=== PATIENT | female | born 1955 | race Caucasian/White ===

== ENCOUNTER 2017-04-11 22:59 | Emergency (ER) | payer BC ==
[~2017-04-11] VITALS: Ht 154.9 cm; Wt 47.7 kg
[2017-04-11 23:06] VITALS: BP 130/65; PULSE 83; TEMP 36.5; O2SAT 98; Ht 154.9 cm; Wt 47.7 kg
[2017-04-11] MEDS ORDERED: DOXYCYCLINE HYCLATE 100 MG CAP PO STA (23:18)
--- NOTE | 2017-04-11 23:23 | EMERGENCY ROOM VISIT NOTE ---
History Report prepared by Srikanth: Jose Alejandro Maciel Under the Supervision of: Dr. Aaron Adam D.O. First contact with patient: 23:13 Chief Complaint: BITE Stated Complaint: TICK BITE ON BACK OF LEG History of Present Illness The patient is a 61 year old female who presents to the Emergency Room with complaints of an acute tick bite that was noticed earlier tonight. The patient found a tick on her left lower leg, which she pulled off at home. She is not sure how long the tick was there. The patient has not experienced any fevers or muscles aches. She is allergic to sulfa drugs which give her a rash. Source of History: patient Onset: tonight Position: leg (left) Quality: other (tick bite) Timing: other (acute) Associated Symptoms: No fevers Review of Systems See HPI for pertinent positives and negatives. A total of ten systems were reviewed and were otherwise negative. Past Medical & Surgical Medical Problems: (1) Allergy to sulfa drugs Family History No pertinent family history Social History Smoking Status: Never Smoker Marital Status: Housing Status: lives with family Physical Exam Vital Signs Date Time Temp Pulse Resp B/P Pulse Ox O2 Delivery O2 Flow Rate FiO2 04/11/17 23:06 36.5 83 18 130/65 98 Room Air Physical Exam GENERAL: Awake, alert, well-appearing, in no distress HENT: Normocephalic, atraumatic. Oropharynx unremarkable. EYES: Normal conjunctiva. Sclera non-icteric. NECK: Supple. No nuchal rigidity. FROM. No JVD. RESPIRATORY: Clear to auscultation. CARDIAC: Regular rate, normal rhythm. Extremities warm and well perfused. Pulses equal. ABDOMEN: Soft, non-distended. No tenderness to palpation. No rebound or guarding. No masses. RECTAL: Deferred. MUSCULOSKELETAL: Chest examination reveals no tenderness. The back is symmetrical on inspection without obvious abnormality. There is no CVA tenderness to palpation. No joint edema. LOWER EXTREMITIES: Calves are equal size bilaterally and non-tender. No edema. No discoloration. NEURO: Normal sensorium. No sensory or motor deficits noted. SKIN: Dime-sized circular red lesion on the proximal anterior left dennis. Medical Decision & Procedures Laboratory Results Test 04/11/17 23:19 Laboratory results reviewed by nd ED Course 2315: The patient was evaluated in room C7. A complete history and physical exam was performed. 2318: Vibramycin 200 mg PO. 2345: Discussed results and discharge instructions: She verbalized understanding and agreement. The patient is ready for discharge. Medical Decision Differential diagnosis includes localized reaction, early cellulitis, ECM, possible Lyme. We will start the patient on doxycycline in the emergency department. Will test for Lyme. Told the patient to continue doxycycline until Lyme titer is negative. Impression Primary Impression: Tick bite Scribe Attestation The scribe's documentation has been prepared under my direction and personally reviewed by me in its entirety. I confirm that the note above accurately reflects all work, treatment, procedures, and medical decision making performed by me. Departure Information Dispostion Home / Self-Care Prescriptions Doxycycline Hyclate (VIBRAMYCIN) 100 Mg Cap 100 MG PO BID for 10 Days, #20 CAP Prov: Aaron Adam, DO 04/11/17 Referrals Eagle Howard M.D.(SHRAVAN) (PCP) Forms HOME CARE DOCUMENTATION FORM, IMPORTANT VISIT INFORMATION Patient Instructions ED Bite Tick Abx Tx, My [facility] Additional Instructions Continue to take doxycycline until you know that the Lyme titer is negative. Problem Qualifiers Primary Impression: Tick bite Encounter type: initial encounter Qualified Codes: W57.XXXA - Bitten or stung by nonvenomous insect and other nonvenomous arthropods, initial encounter
[2017-04-11] MEDS ORDERED: DOXY100C PO (23:24)
== END 2017-04-11 23:55 | disposition home or self-care (01) ==
LOC: C.EDB 23:01 → C.EDC 23:55
DX: S80.862A Insect bite (nonvenomous), left lower leg, initial encounter (principal); W57.XXXA Bitten or stung by nonvenomous insect and other nonvenomous arthropods, initial encounter; Y92.89 Other specified places as the place of occurrence of the external cause

== ENCOUNTER 2021-02-28 13:45 | Observation (INO) ==
[2021-02-28] MEDS ORDERED: SODIUM CHLORIDE 0.9% 500 ML IV STA (17:22)
--- NOTE | 2021-02-28 17:28 | Emergency Department Note ---
Impression & Plan Abdominal pain, lower, Abdominal carcinomatosis ED Provider Note INFORMANT: Patient ED PROVIDER(S): Isrrael Yepez MD CHIEF COMPLAINT: Abdominal pain PLAN: Disposition: Admitted Condition: Good Outpatient prescription management: none Referral: None MEDICAL DECISION MAKING: Patient presented to emergency room complaining of abdominal pain. Blood work was obtained. She had an unremarkable CBC, chemistry panel, LFTs, and troponin. Her lipase was minimally elevated. Urinalysis was negative. ECG was normal. The patient underwent CT imaging of her abdomen pelvis and this was concerning with multiple nodules noted. Concerning for abdominal carcinomatosis. I did inform the patient and her significant other of this. I discussed possible follow-up as an outpatient. She wanted to follow-up with oncology but not at [facility]. I did consult with Dr. Negrete and he asked for the patient to be admitted, have a full contrast-enhanced CT scan of the chest abdomen and pelvis, be set up for surgical consultation for biopsy and he would see the patient tomorrow. He felt inpatient work-up with expedite the process and help the patient much more quickly as his office is significantly backed up. I did discuss the case with the patient and she is in agreement. Consultation was made with Dr. Castro Red, [facility] hospitalist service. The patient was evaluated in the ER for further management. Triage Nursing notes reviewed and agree them. Prior records reviewed. Outpatient labs are unremarkable. Vital Signs: reviewed and remarkable for tachycardia Differential diagnosis: Appendicitis, ovarian cyst, ovarian torsion, ectopic , TOA, PID, infections, diverticulitis, UTI, obstruction, mesenteric ischemia, aortic pathology, inflammatory bowel disease, renal colic, PUD, pancreatitis, biliary pathology, hernia, volvulus, constipation, cancer, well as other pathologies. Diagnostics interpreted by me: ECG: Rate:96 Rhythm:Normal sinus [place]:Normal QRS:Normal ST segements:No elevation or depression Other:No PACs or PVCs Cardiac Monitoring:Cardiac monitoring ordered by me: The patient was placed on continuous cardiac monitoring and observed. It revealed a normal sinus rhythm at 94 beats per minute without ectopy or evidence of dysrhythmia. Imaging studies: CT scan as noted above. I refer you to the EMR for further details. Consultation(s): Oncology Hospitalist service HPI: The patient is a 65 year old female who presents to the Emergency Room with complaints of lower abd pain. This started a few months ago and is escalating. The patient also notes the following associated symptoms, nausea, weakness and dizziness. The patient has noted exercise for relieving factors. Current pain is rated as 8/10. Pt denies LOC, headache, fevers, chills, diaphoresis, visual changes, neck pain, chest pain, breathing difficulties, vomiting, back pain, melena, hematochezia, urinary symptoms, numbness, lymphadenopathy, rash, or other complaints. ROS: See above HPI for pertinent positives & negatives. A total of 10 systems reviewed and were otherwise negative. PAST MEDICAL HISTORY:See Below , DM PAST SURGICAL HISTORY:See Below, FAMILY HISTORY:See Below SOCIAL HISTORY:See Below, no tobacco, occasional etoh HOME MEDICATIONS:See Below ALLERGIES:See Below VITALS:See Below PHYSICAL EXAMINATION: GENERAL: Awake, alert, well-appearing, in no distress HENT: Normocephalic, atraumatic. Oropharynx unremarkable. EYES: Normal conjunctiva. Sclera non-icteric. NECK: Inspection normal. Non-tender. Supple. No nuchal rigidity. FROM. No masses. RESPIRATORY: Clear to auscultation. No wheezes. No rales. Normal respiratory effort. CARDIAC: Normal rate. Normal rhythm. No murmurs. No rubs. Extremities warm and well perfused. Pulses equal. No JVD. GI: Soft, non-distended. Lower abd tenderness to palpation. No rebound or guarding. No masses. RECTAL: Deferred. MUSCULOSKELETAL: Atraumatic. Chest examination reveals no tenderness. The back is symmetrical on inspection without obvious abnormality. There is no CVA tenderness to palpation. No joint edema. LOWER EXTREMITIES: Calves are equal size bilaterally and non-tender. No edema. No discoloration. NEURO: Normal sensorium. No sensory or motor deficits noted. SKIN: No rash or jaundice noted. Isrrael Yepez MD Past Med/Surg History Social History Smoking Status: Never smoker Feels Safe at Home: Yes Allergies Allergies Allergy/AdvReac Type Severity Reaction Status Date / Time Sulfa (Sulfonamide Allergy Mild Rash Verified 02/28/21 20:33 Antibiotics) acetaminophen [From Vicodin] AdvReac Mild Vomiting Verified 02/28/21 20:34 hydrocodone [From Vicodin] AdvReac Mild Vomiting Verified 02/28/21 20:34 Results & Data (ED) Vital Signs Vital Signs - 24 hr 02/28/21 13:48 02/28/21 17:24 02/28/21 17:28 Temperature 36.5 C Temperature Source Oral Pulse Rate 126 H 96 H 98 H Pulse Rate from SpO2 Sensor 95 H 99 H Respiratory Rate 20 16 17 Blood Pressure 171/80 H 168/91 H Blood Pressure Mean 110 116 Pulse Oximetry 96 98 98 Sepsis Recent Fever Within 48 Hours No Sepsis New/Unexplained Change in Mental Status N/A Sepsis Action Taken by Nursing No Action Required 02/28/21 17:30 02/28/21 17:40 02/28/21 17:55 Temperature Temperature Source Pulse Rate 106 H 98 H 98 H Pulse Rate from SpO2 Sensor 108 H 101 H 98 H Respiratory Rate 23 25 H 22 Blood Pressure Blood Pressure Mean Pulse Oximetry 97 97 99 Sepsis Recent Fever Within 48 Hours Sepsis New/Unexplained Change in Mental Status Sepsis Action Taken by Nursing 02/28/21 18:00 02/28/21 18:10 02/28/21 18:20 Temperature Temperature Source Pulse Rate 95 H 94 H 89 Pulse Rate from SpO2 Sensor 95 H 94 H 92 H Respiratory Rate 14 17 13 Blood Pressure Blood Pressure Mean Pulse Oximetry 98 98 97 Sepsis Recent Fever Within 48 Hours Sepsis New/Unexplained Change in Mental Status Sepsis Action Taken by Nursing 02/28/21 18:30 02/28/21 18:40 02/28/21 18:52 Temperature Temperature Source Pulse Rate 92 H 94 H 98 H Pulse Rate from SpO2 Sensor 92 H 93 H 98 H Respiratory Rate 14 17 13 Blood Pressure Blood Pressure Mean Pulse Oximetry 96 97 97 Sepsis Recent Fever Within 48 Hours Sepsis New/Unexplained Change in Mental Status Sepsis Action Taken by Nursing 02/28/21 18:53 02/28/21 19:00 02/28/21 19:01 Temperature Temperature Source Pulse Rate 96 H 90 89 Pulse Rate from SpO2 Sensor 96 H 89 89 Respiratory Rate 16 19 17 Blood Pressure 170/88 H 158/87 H Blood Pressure Mean 115 110 Pulse Oximetry 98 98 98 Sepsis Recent Fever Within 48 Hours Sepsis New/Unexplained Change in Mental Status Sepsis Action Taken by Nursing 02/28/21 19:10 02/28/21 19:20 02/28/21 19:24 Temperature Temperature Source Pulse Rate 88 93 H 89 Pulse Rate from SpO2 Sensor 88 93 H 90 Respiratory Rate 13 17 16 Blood Pressure 158/87 H Blood Pressure Mean 110 Pulse Oximetry 97 96 97 Sepsis Recent Fever Within 48 Hours Sepsis New/Unexplained Change in Mental Status Sepsis Action Taken by Nursing 02/28/21 19:30 02/28/21 19:31 02/28/21 19:40 Temperature Temperature Source Pulse Rate 95 H 94 H 93 H Pulse Rate from SpO2 Sensor 95 H 95 H 93 H Respiratory Rate 19 13 17 Blood Pressure 171/93 H Blood Pressure Mean 119 Pulse Oximetry 98 98 97 Sepsis Recent Fever Within 48 Hours Sepsis New/Unexplained Change in Mental Status Sepsis Action Taken by Nursing 02/28/21 19:50 Temperature Temperature Source Pulse Rate 90 Pulse Rate from SpO2 Sensor 90 Respiratory Rate 20 Blood Pressure Blood Pressure Mean Pulse Oximetry 96 Sepsis Recent Fever Within 48 Hours Sepsis New/Unexplained Change in Mental Status Sepsis Action Taken by Nursing Laboratory Data Result diagrams: 02/28/21 17:33 02/28/21 17:33 Lab Results 02/28/21 02/28/21 02/28/21 Range/Units 17:33 17:33 18:50 WBC 10.31 (4.8-10.8) K/uL RBC 4.56 (4.2-5.4) M/uL Hgb 13.7 (12.0-16.0) g/dL Hct 39.8 (37-47) % MCV 87.3 (80-100) fL MCH 30.0 (25-34) pg MCHC 34.4 (32-36) g/dL RDW Std Deviation 42.6 (36.4-46.3) fL RDW Coeff of Huy 13.3 (11.5-14.5) % Plt Count 416 H (130-400) K/uL MPV 9.6 (7.4-10.4) fL Immature Gran % (Auto) 0.3 % Neut % (Auto) 64.6 % Lymph % (Auto) 23.6 % [place] % (Auto) 10.0 % Eos % (Auto) 1.0 % Baso % (Auto) 0.5 % Neut # (Auto) 6.67 H (1.4-6.5) K/uL Lymph # (Auto) 2.43 (1.2-3.4) K/uL [place] # (Auto) 1.03 H (0.11-0.59) K/uL Eos # (Auto) 0.10 (0-0.5) K/uL Baso # (Auto) 0.05 (0-0.2) K/uL Immature Gran # (Auto) 0.03 H (0.00-0.02) K/uL Sodium 135 L (136-145) mmol/L Potassium 4.1 (3.5-5.1) mmol/L Chloride 102 (98-107) mmol/L Carbon Dioxide 22 (21-32) mmol/L Anion Gap 11.0 (3-11) BUN 16 (7-18) mg/dl Creatinine 0.85 (0.6-1.2) mg/dl Est Cr Clr Drug Dosing 49.1 ml/min Est GFR ( Amer) 82.8 Est GFR (Non-Af Amer) 71.4 BUN/Creatinine Ratio 18.8 (10-20) Glucose 97 (70-99) mg/dl Calcium 9.8 (8.5-10.1) mg/dl Total Bilirubin 0.3 (0.2-1) mg/dl AST 24 (15-37) U/L ALT 13 (12-78) U/L Alkaline Phosphatase 67 (45-117) U/L Troponin I < 0.015 (0-0.045) ng/ml Total Protein 7.7 (6.4-8.2) gm/dl Albumin 3.7 (3.4-5.0) gm/dl Globulin 4.0 (2.5-4.0) gm/dl Albumin/Globulin Ratio 0.9 (0.9-2) Lipase 458 H (73-393) U/L Urine Color Yellow Urine Appearance Clear (Clear) Urine pH 5.0 (4.5-7.5) Ur Specific [place] 1.014 (1.000-1.030) Urine Protein Negative (Negative) Urine Glucose (UA) Negative (Negative) Urine Ketones 3+ H (Negative) Urine Blood Negative (Negative) Urine Nitrite Negative (Negative) Urine Bilirubin Negative (Negative) Urine Urobilinogen Negative (Negative) Ur Leukocyte Esterase 1+ H (Negative) Urine WBC (Auto) 5-10 H (0-5) /hpf Urine RBC (Auto) 0-4 (0-4) /hpf U Hyaline Cast (Auto) 0 (0-5) /lpf U Epithel Cells (Auto) 10-20 H (0-5) /lpf Urine Bacteria (Auto) Negative (Negative) COVID-19 Eval Order 02/28/21 Range/Units 19:51 WBC (4.8-10.8) K/uL RBC (4.2-5.4) M/uL Hgb (12.0-16.0) g/dL Hct (37-47) % MCV (80-100) fL MCH (25-34) pg MCHC (32-36) g/dL RDW Std Deviation (36.4-46.3) fL RDW Coeff of Huy (11.5-14.5) % Plt Count (130-400) K/uL MPV (7.4-10.4) fL Immature Gran % (Auto) % Neut % (Auto) % Lymph % (Auto) % [place] % (Auto) % Eos % (Auto) % Baso % (Auto) % Neut # (Auto) (1.4-6.5) K/uL Lymph # (Auto) (1.2-3.4) K/uL [place] # (Auto) (0.11-0.59) K/uL Eos # (Auto) (0-0.5) K/uL Baso # (Auto) (0-0.2) K/uL Immature Gran # (Auto) (0.00-0.02) K/uL Sodium (136-145) mmol/L Potassium (3.5-5.1) mmol/L Chloride (98-107) mmol/L Carbon Dioxide (21-32) mmol/L Anion Gap (3-11) BUN (7-18) mg/dl Creatinine (0.6-1.2) mg/dl Est Cr Clr Drug Dosing ml/min Est GFR ( Amer) Est GFR (Non-Af Amer) BUN/Creatinine Ratio (10-20) Glucose (70-99) mg/dl Calcium (8.5-10.1) mg/dl Total Bilirubin (0.2-1) mg/dl AST (15-37) U/L ALT (12-78) U/L Alkaline Phosphatase (45-117) U/L Troponin I (0-0.045) ng/ml Total Protein (6.4-8.2) gm/dl Albumin (3.4-5.0) gm/dl Globulin (2.5-4.0) gm/dl Albumin/Globulin Ratio (0.9-2) Lipase (73-393) U/L Urine Color Urine Appearance (Clear) Urine pH (4.5-7.5) Ur Specific [place] (1.000-1.030) Urine Protein (Negative) Urine Glucose (UA) (Negative) Urine Ketones (Negative) Urine Blood (Negative) Urine Nitrite (Negative) Urine Bilirubin (Negative) Urine Urobilinogen (Negative) Ur Leukocyte Esterase (Negative) Urine WBC (Auto) (0-5) /hpf Urine RBC (Auto) (0-4) /hpf U Hyaline Cast (Auto) (0-5) /lpf U Epithel Cells (Auto) (0-5) /lpf Urine Bacteria (Auto) (Negative) COVID-19 Eval Order CovFluRsv at [facility] Administered Medications Discontinued Medications Sodium Chloride (Nss) 500 mls @ 999 mls/hr IV .Q31M STA Stop: 02/28/21 17:52 Last Infusion: 02/28/21 18:11 Dose: 0 mls/hr Documented by: [id number] Admin: 02/28/21 17:44 Dose: 999 mls/hr Documented by: [id number] Imaging Data Radiologist's Impression: Abdomen/Pelvis CT 02/28/21 17:22 CT SCAN OF THE ABDOMEN AND PELVIS WITHOUT CONTRAST CLINICAL HISTORY: generalized abd pain COMPARISON STUDY: No previous studies for comparison. TECHNIQUE: CT scan of the abdomen and pelvis was performed from the lung bases to the proximal femurs. Images are reviewed in the axial, sagittal, and coronal planes. IV contrast was not administered for this examination. A dose lowering technique was utilized adhering to the principles of ALARA. CT DOSE: 296.23 mGy.cm FINDINGS: Lower chest: There is minor basilar atelectasis Liver: The unenhanced liver is normal in size, contour, and attenuation. There is no intrahepatic biliary ductal dilatation. Gallbladder: Unremarkable. Spleen: Normal in size and attenuation. Pancreas: Unremarkable. Adrenal glands: Unremarkable. Kidneys: No renal, ureteral, or bladder calculi are visualized. Bowel: There are no transition zones to indicate bowel obstruction. Bowel evaluation is limited due to the lack of intravenous and oral contrast. There is no evidence of acute diverticulitis. There is no convincing evidence of acute appendicitis. Peritoneum: There are innumerable soft tissue peritoneal nodules viewed as suspicious for abdominal carcinomatosis. Vasculature: The abdominal aorta is normal in course and caliber. Adenopathy: There is a 22 mm gastrohepatic ligament lymph node. There are mildly enlarged mesenteric lymph nodes. Pelvic viscera: Evaluation the pelvis is limited due to the lack of intravenous and oral contrast. There are suspected pelvic soft tissue nodules. Skeletal structures: No destructive osseous lesions are seen. IMPRESSION: 1. Examination limited by the lack of intravenous and oral contrast 2. No evidence of bowel obstruction. No evidence of free air 3. No renal, ureteral, or bladder calculi identified 4. Innumerable peritoneal nodules. Abdominal carcinomatosis is the diagnosis of exclusion. Oncologic referral and further workup recommended. ACT 112: Positive. There are findings on this exam that require communication between the performing entity and the patient following Patient Test Result Information Act ([place] Act 112) guidelines. Electronically signed by: Grey Malave M.D. 02/28/2021 6:00 PM Discharge Plan Visit Data Chief Complaint: Abdominal Pain Stated Complaint: ABD PAIN ED Provider: Isrrael Yepez Discharge Problem: Abdominal pain, lower, Abdominal carcinomatosis Forms Stand Alone Forms: [facility]
[2021-02-28 17:40] LABS: Basophils # (auto) 0.05 K/uL (0-0.2); Basophils % (auto) 0.5 %; Hematocrit (blood only) 39.8 % (37-47); Hemoglobin 13.7 g/dL (12.0-16.0); Immature Granulocytes # (auto) 0.03 K/uL (0.00-0.02); Immature Granulocytes % (auto) 0.3 %; Lymphocytes # (auto) 2.43 K/uL (1.2-3.4); Lymphocytes % (auto) 23.6 %; Mean Corpuscular Hgb Conc 34.4 g/dL (32-36); Mean Corpuscular Volume 87.3 fL (80-100); Mean Platelet Volume 9.6 fL (7.4-10.4); Monocytes # (auto) 1.03 K/uL (0.11-0.59); Neutrophils # (auto) 6.67 K/uL (1.4-6.5); Neutrophils % (auto) 64.6 %; Platelet Count 416 K/uL (130-400); RDW Coefficient of Variation 13.3 % (11.5-14.5); RDW Standard Deviation 42.6 fL (36.4-46.3); Red Blood Count 4.56 M/uL (4.2-5.4); White Blood Count 10.31 K/uL (4.8-10.8)
[2021-02-28 17:56] LABS: Alanine Aminotransferase 13 U/L (12-78); Albumin Level 3.7 gm/dl (3.4-5.0); Aspartate Aminotransferase 24 U/L (15-37); BUN Creatinine Ratio 18.8 (10-20); Blood Urea Nitrogen 16 mg/dl (7-18); Calcium 9.8 mg/dl (8.5-10.1); Carbon Dioxide 22 mmol/L (21-32); Chloride 102 mmol/L (98-107); Creatinine Clr Calc Pharmacy 49.1 ml/min; Est GFR (African American) 82.8; Est GFR (Non-African American) 71.4; Glucose 97 mg/dl (70-99); Lipase 458 U/L (73-393); Potassium 4.1 mmol/L (3.5-5.1); Sodium 135 mmol/L (136-145)
[2021-02-28 18:00] LABS: Albumin Globulin Ratio 0.9 (0.9-2); Alkaline Phosphatase 67 U/L (45-117); Bilirubin,Total 0.3 mg/dl (0.2-1); Total Protein 7.7 gm/dl (6.4-8.2); Troponin I < 0.015 ng/ml (0-0.045)
--- NOTE | 2021-02-28 18:01 | CT Scan Report ---
CT SCAN OF THE ABDOMEN AND PELVIS WITHOUT CONTRAST CLINICAL HISTORY: generalized abd pain COMPARISON STUDY: No previous studies for comparison. TECHNIQUE: CT scan of the abdomen and pelvis was performed from the lung bases to the proximal femurs . Images are reviewed in the axial, sagittal, and coronal planes. IV contrast was not administered fo r this examination. A dose lowering technique was utilized adhering to the principles of ALARA. CT DOSE: 296.23 mGy.cm FINDINGS: Lower chest: There is minor basilar atelectasis Liver: The unenhanced liver is normal in size, contour, and attenuation. There is no intrahepatic ronni iary ductal dilatation. Gallbladder: Unremarkable. Spleen: Normal in size and attenuation. Pancreas: Unremarkable. Adrenal glands: Unremarkable. Kidneys: No renal, ureteral, or bladder calculi are visualized. Bowel: There are no transition zones to indicate bowel obstruction. Bowel evaluation is limited due t o the lack of intravenous and oral contrast. There is no evidence of acute diverticulitis. There is n o convincing evidence of acute appendicitis. Peritoneum: There are innumerable soft tissue peritoneal nodules viewed as suspicious for abdominal c arcinomatosis. Vasculature: The abdominal aorta is normal in course and caliber. Adenopathy: There is a 22 mm gastrohepatic ligament lymph node. There are mildly enlarged mesenteric lymph nodes. Pelvic viscera: Evaluation the pelvis is limited due to the lack of intravenous and oral contrast. Th ere are suspected pelvic soft tissue nodules. Skeletal structures: No destructive osseous lesions are seen. IMPRESSION: 1. Examination limited by the lack of intravenous and oral contrast 2. No evidence of bowel obstruction. No evidence of free air 3. No renal, ureteral, or bladder calculi identified 4. Innumerable peritoneal nodules. Abdominal carcinomatosis is the diagnosis of exclusion. Oncologic referral and further workup recommended. ACT 112: Positive. There are findings on this exam that require communication between the performing entity and the patient following Patient Test Result Information Act ([place] Act 112) guidelines. Electronically signed by: Grey Malave M.D. 02/28/2021 6:00 PM
[2021-02-28 19:07] LABS: Appearance Urine Clear (Clear); Bacteria Urine Automated Negative (Negative); Bilirubin Urine Negative (Negative); Blood Urine Negative (Negative); Cast Urine Automated 0 /lpf (0-5); Color Urine Yellow; Glucose Urine UA Negative (Negative); Ketones Urine 3+ (Negative); Leukocyte Esterase Urine 1+ (Negative); Nitrite Urine Negative (Negative); Protein Urine Negative (Negative); RBC Urine Automated 0-4 /hpf (0-4); Specific Gravity Urine 1.014 (1.000-1.030); Urobilinogen Urine Negative (Negative)
[2021-02-28 21:01] LABS: Influenza A virus by PCR Negative (Neg); Influenza B virus by PCR Negative (Neg); RSV by PCR Negative (Neg); SARS CoV2 RNA(COVID-19) InHosp NEGATIVE (Negative)
--- NOTE | 2021-02-28 22:09 | History & Physical Report ---
Date of Service February 28, 2021 Assessment & Plan (1) Abdominal pain, lower: Abdominal pain complaints of 6 months duration. Possible carcinomatosis on initial CT Unknown primary for now. hypertension, elevated secondary to discomfort/anxiety, currently not on any maintenance medications DM2 diet-controlled, hemoglobin A1c of 5.28 February 2021 LE cramps rule out DVT OBS Medical telemetry given elevated BP Initiate lisinopril if with persistent elevation Inpatient Oncology consultation as per patient preference for work-up for abdominal carcinomatosis on CT. Patient worried about delays posed by outpatient specialty referrals and scheduling of recommended tests. (ER provider already in touch with Dr. Morel.) N.p.o. after midnight in anticipation of any testing procedure. LE venous Dopplers rule out DVT DVT prophylaxis per Lovenox subcu Full code Text document was generated using Prysm voice recognition software. It may contain grammatical or spelling errors. Kindly contact undersigned for clarification of any documentation item in question. History of Present Illness Chief Complaint: Abdominal pain Primary Care Provider: [facility] History obtained from patient, family, and records. Medical history significant for hypertension, hyperlipidemia, DM2 diet- controlled. 6 months history of intermittent achy lower abdominal discomfort without bowel change habits, fever chills, weight loss. No nausea, no vomiting. Appetite okay as per patient. Patient denies dysuria. Patient seen at PCP's office around that time. Metamucil prescribed. Outpatient Cologuard test requested which patient complied with but could not get processed as per records. Patient seen at PCP's office yesterday for persistent abdominal pain complaints. Benign abdominal exam as per documentation. Outpatient KUB and blood work requested. Patient consulted ER for persistent discomfort. Medical History as above 2020 mammogram was normal. No prior colonoscopies. 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 Allergies Allergy/AdvReac Type Severity Reaction Status Date / Time Sulfa (Sulfonamide Allergy Mild Rash Verified 02/28/21 20:33 Antibiotics) hydrocodone [From Vicodin] AdvReac Mild Vomiting Verified 02/28/21 20:34 Home Medications Medication Instructions Recorded Confirmed Type Curcumin Tab 0 mg PO DAILY 02/28/21 02/28/21 History Salt Tabs 2 tabs PO HS 02/28/21 02/28/21 History cholecalciferol (vitamin D3) 0 mcg PO DAILY 02/28/21 02/28/21 History [Vitamin D3] latanoprost [Xalatan] 1 drp OPHTHALMIC (EYE) DAILY 02/28/21 02/28/21 History Past Med/Surg History Social History Smoking Status: Never smoker Second Hand Exposure: No; Do You Dip or Chew Tobacco: No; Tobacco Cessation Education Requested by Patient: No Hx Alcohol Use: No Hx Substance Use: No Preferred Language: Icelandic Learning Manager Required: No Beliefs That Will Affect Care: None Current Living Situation: Spouse Other Information That Helps Us Care for You: No Feels Safe at Home: Yes Safety Concerns: Feels Safe At This Time Assistive Devices: None Review of Systems Review of Systems: As per HPI, all 10 systems reviewed, chronic leg cramps for which patient self-medicates with salt tablets purchased from [employer], all other ROS negative Physical Exam Physical Exam: GENERAL: Comfortable, slightly anxious, no respiratory distress SKIN: Normal color, warm HEENT: Jessie palpebral conjunctivae, no ptosis, dry buccal mucosa NECK : Supple, no tenderness CHEST : CTA, no tenderness HEART : RRR, no obvious murmurs ABDOMEN: Some distention, minimal hypogastric tenderness EXTREMITIES : Minimal LE swelling, minimal LE tenderness, no other conspicuous deformities noted NEUROLOGIC : Coherent, no facial asymmetry, no other gross focality Results & Data Results & Data ([facility]) Vital Signs (Past 12 Hours) Vital Signs Temp Pulse Resp BP Pulse Ox 02/28/21 19:50 90 20 96 02/28/21 19:40 93 H 17 97 02/28/21 19:31 94 H 13 98 02/28/21 19:30 95 H 19 171/93 H 98 02/28/21 19:24 89 16 158/87 H 97 02/28/21 19:20 93 H 17 96 02/28/21 19:10 88 13 97 02/28/21 19:01 89 17 98 02/28/21 19:00 90 19 158/87 H 98 02/28/21 18:53 96 H 16 170/88 H 98 02/28/21 18:52 98 H 13 97 02/28/21 18:40 94 H 17 97 02/28/21 18:30 92 H 14 96 02/28/21 18:20 89 13 97 02/28/21 18:10 94 H 17 98 02/28/21 18:00 95 H 14 98 02/28/21 17:55 98 H 22 99 02/28/21 17:40 98 H 25 H 97 02/28/21 17:30 106 H 23 97 02/28/21 17:28 98 H 17 98 02/28/21 17:24 96 H 16 168/91 H 98 02/28/21 13:48 36.5 C 126 H 20 171/80 H 96 Laboratory Results Laboratory Results WBC 10.31 K/uL (4.8-10.8) 02/28/21 17:33 RBC 4.56 M/uL (4.2-5.4) 02/28/21 17:33 Hgb 13.7 g/dL (12.0-16.0) 02/28/21 17:33 Hct 39.8 % (37-47) 02/28/21 17:33 MCV 87.3 fL (80-100) 02/28/21 17:33 MCH 30.0 pg (25-34) 02/28/21 17:33 MCHC 34.4 g/dL (32-36) 02/28/21 17:33 RDW Std Deviation 42.6 fL (36.4-46.3) 02/28/21 17:33 RDW Coeff of Uhy 13.3 % (11.5-14.5) 02/28/21 17:33 Plt Count 416 K/uL (130-400) H 02/28/21 17:33 MPV 9.6 fL (7.4-10.4) 02/28/21 17:33 Immature Gran % (Auto) 0.3 % 02/28/21 17:33 Neut % (Auto) 64.6 % 02/28/21 17:33 Lymph % (Auto) 23.6 % 02/28/21 17:33 [place] % (Auto) 10.0 % 02/28/21 17:33 Eos % (Auto) 1.0 % 02/28/21 17:33 Baso % (Auto) 0.5 % 02/28/21 17:33 Neut # (Auto) 6.67 K/uL (1.4-6.5) H 02/28/21 17:33 Lymph # (Auto) 2.43 K/uL (1.2-3.4) 02/28/21 17:33 [place] # (Auto) 1.03 K/uL (0.11-0.59) H 02/28/21 17:33 Eos # (Auto) 0.10 K/uL (0-0.5) 02/28/21 17:33 Baso # (Auto) 0.05 K/uL (0-0.2) 02/28/21 17:33 Immature Gran # (Auto) 0.03 K/uL (0.00-0.02) H 02/28/21 17:33 Sodium 135 mmol/L (136-145) L 02/28/21 17:33 Potassium 4.1 mmol/L (3.5-5.1) 02/28/21 17:33 Chloride 102 mmol/L (98-107) 02/28/21 17:33 Carbon Dioxide 22 mmol/L (21-32) 02/28/21 17:33 Anion Gap 11.0 (3-11) 02/28/21 17:33 BUN 16 mg/dl (7-18) 02/28/21 17:33 Creatinine 0.85 mg/dl (0.6-1.2) 02/28/21 17:33 Est Cr Clr Drug Dosing 49.1 ml/min 02/28/21 17:33 Est GFR ( Amer) 82.8 02/28/21 17:33 Est GFR (Non-Af Amer) 71.4 02/28/21 17:33 BUN/Creatinine Ratio 18.8 (10-20) 02/28/21 17:33 Glucose 97 mg/dl (70-99) 02/28/21 17:33 Calcium 9.8 mg/dl (8.5-10.1) 02/28/21 17:33 Total Bilirubin 0.3 mg/dl (0.2-1) 02/28/21 17:33 AST 24 U/L (15-37) 02/28/21 17:33 ALT 13 U/L (12-78) 02/28/21 17:33 Alkaline Phosphatase 67 U/L (45-117) 02/28/21 17:33 Troponin I < 0.015 ng/ml (0-0.045) 02/28/21 17:33 Total Protein 7.7 gm/dl (6.4-8.2) 02/28/21 17:33 Albumin 3.7 gm/dl (3.4-5.0) 02/28/21 17:33 Globulin 4.0 gm/dl (2.5-4.0) 02/28/21 17:33 Albumin/Globulin Ratio 0.9 (0.9-2) 02/28/21 17:33 Lipase 458 U/L (73-393) H 02/28/21 17:33 Urine Color Yellow 02/28/21 18:50 Urine Appearance Clear (Clear) 02/28/21 18:50 Urine pH 5.0 (4.5-7.5) 02/28/21 18:50 Ur Specific [place] 1.014 (1.000-1.030) 02/28/21 18:50 Urine Protein Negative (Negative) 02/28/21 18:50 Urine Glucose (UA) Negative (Negative) 02/28/21 18:50 Urine Ketones 3+ (Negative) H 02/28/21 18:50 Urine Blood Negative (Negative) 02/28/21 18:50 Urine Nitrite Negative (Negative) 02/28/21 18:50 Urine Bilirubin Negative (Negative) 02/28/21 18:50 Urine Urobilinogen Negative (Negative) 02/28/21 18:50 Ur Leukocyte Esterase 1+ (Negative) H 02/28/21 18:50 Urine WBC (Auto) 5-10 /hpf (0-5) H 02/28/21 18:50 Urine RBC (Auto) 0-4 /hpf (0-4) 02/28/21 18:50 U Hyaline Cast (Auto) 0 /lpf (0-5) 02/28/21 18:50 U Epithel Cells (Auto) 10-20 /lpf (0-5) H 02/28/21 18:50 Urine Bacteria (Auto) Negative (Negative) 02/28/21 18:50 COVID-19 Eval Order CovFluRsv at [facility] 02/28/21 19:51 SARS-CoV-2 (PCR) NEGATIVE (Negative) 02/28/21 19:51 Influenza Type A (PCR) Negative (Neg) 02/28/21 19:51 Influenza Type B (PCR) Negative (Neg) 02/28/21 19:51 RSV (RT-PCR) Negative (Neg) 02/28/21 19:51 Impressions Abdomen/Pelvis CT 02/28/21 17:22 CT SCAN OF THE ABDOMEN AND PELVIS WITHOUT CONTRAST CLINICAL HISTORY: generalized abd pain COMPARISON STUDY: No previous studies for comparison. TECHNIQUE: CT scan of the abdomen and pelvis was performed from the lung bases to the proximal femurs. Images are reviewed in the axial, sagittal, and coronal planes. IV contrast was not administered for this examination. A dose lowering technique was utilized adhering to the principles of ALARA. CT DOSE: 296.23 mGy.cm FINDINGS: Lower chest: There is minor basilar atelectasis Liver: The unenhanced liver is normal in size, contour, and attenuation. There is no intrahepatic biliary ductal dilatation. Gallbladder: Unremarkable. Spleen: Normal in size and attenuation. Pancreas: Unremarkable. Adrenal glands: Unremarkable. Kidneys: No renal, ureteral, or bladder calculi are visualized. Bowel: There are no transition zones to indicate bowel obstruction. Bowel evaluation is limited due to the lack of intravenous and oral contrast. There is no evidence of acute diverticulitis. There is no convincing evidence of acute appendicitis. Peritoneum: There are innumerable soft tissue peritoneal nodules viewed as suspicious for abdominal carcinomatosis. Vasculature: The abdominal aorta is normal in course and caliber. Adenopathy: There is a 22 mm gastrohepatic ligament lymph node. There are mildly enlarged mesenteric lymph nodes. Pelvic viscera: Evaluation the pelvis is limited due to the lack of intravenous and oral contrast. There are suspected pelvic soft tissue nodules. Skeletal structures: No destructive osseous lesions are seen. IMPRESSION: 1. Examination limited by the lack of intravenous and oral contrast 2. No evidence of bowel obstruction. No evidence of free air 3. No renal, ureteral, or bladder calculi identified 4. Innumerable peritoneal nodules. Abdominal carcinomatosis is the diagnosis of exclusion. Oncologic referral and further workup recommended. ACT 112: Positive. There are findings on this exam that require communication between the performing entity and the patient following Patient Test Result Information Act ([place] Act 112) guidelines. Electronically signed by: Grey Malave M.D. 02/28/2021 6:00 PM Diagnostic Findings EKG as per my interpretation: Rate 95, NSR, normal axis, no ischemia
[2021-03-01] MEDS ORDERED: SODIUM CHLORIDE 0.9% 1000ML 1,000 ML IV SCH
[2021-03-01] MEDS ORDERED: LORazepam 0.25 MG/0.5 ML VIAL IV PRN (01:01)
[2021-03-01] MEDS ORDERED: ACETAMINOPHEN 325 MG TAB PO PRN (01:01)
[2021-03-01] MEDS ORDERED: PROMETHAZINE HCL 12.5 MG in SODIUM CHLORIDE 0.9% 50 ML IV PRN (01:01)
[2021-03-01] MEDS: traMADol HCL 50 MG TABLET PO PRN ×2 (04:18→14:28)
--- NOTE | 2021-03-01 07:06 | Ultrasound Report ---
ULTRASOUND BILATERAL LOWER EXTREMITY VENOUS CLINICAL HISTORY: Leg pain. Cramps. COMPARISON STUDY: No priors. TECHNIQUE: Real-time, grayscale, and color Doppler sonography of the deep veins of the right and left lower extremity was performed from the inguinal crease to the calf. Compression and augmentation wer e utilized. FINDINGS: There is no sonographic evidence of deep venous thrombosis identified in the right or left lower extremity. The common femoral, superficial femoral, and popliteal veins are patent and normally compressible bilaterally. The greater saphenous vein and the profunda femoris vein at the junction w ith the common femoral vein are clear in both legs. The visualized calf veins are patent bilaterally. IMPRESSION: There is no sonographic evidence of deep venous thrombosis identified in the right or lef t lower extremity. ACT 112: Negative or not required by law. Electronically signed by: Morgan Rawls M.D. 03/01/2021 7:05 AM
[2021-03-01 07:55] LABS: Basophils # (auto) 0.04 K/uL (0-0.2); Basophils % (auto) 0.4 %; Eosinophils # (auto) 0.07 K/uL (0-0.5); Eosinophils % (auto) 0.7 %; Hematocrit (blood only) 38.1 % (37-47); Hemoglobin 13.3 g/dL (12.0-16.0); Immature Granulocytes # (auto) 0.03 K/uL (0.00-0.02); Immature Granulocytes % (auto) 0.3 %; Lymphocytes % (auto) 12.4 %; Mean Corpuscular Hemoglobin 30.4 pg (25-34); Mean Corpuscular Hgb Conc 34.9 g/dL (32-36); Mean Corpuscular Volume 87.2 fL (80-100); Monocytes # (auto) 0.71 K/uL (0.11-0.59); Monocytes % (auto) 7.4 %; Neutrophils % (auto) 78.8 %; Platelet Count 412 K/uL (130-400); RDW Coefficient of Variation 13.3 % (11.5-14.5); RDW Standard Deviation 42.9 fL (36.4-46.3); Red Blood Count 4.37 M/uL (4.2-5.4); White Blood Count 9.65 K/uL (4.8-10.8)
[2021-03-01 08:37] LABS: Calcium 9.5 mg/dl (8.5-10.1); Creatinine Clr Calc Pharmacy 56.4 ml/min; Est GFR (African American) 97.8; Est GFR (Non-African American) 84.4; Potassium 3.9 mmol/L (3.5-5.1)
[2021-03-01] MEDS ORDERED: ENOXAPARIN INJ 40 MG/0.4 ML SYR SQ SCH (09:00)
[2021-03-01] MEDS ORDERED: OPTIRAY 320 100ml IV ONE (09:38)
--- NOTE | 2021-03-01 10:15 | CT Scan Report ---
CT SCAN OF THE CHEST, ABDOMEN, AND PELVIS WITH IV CONTRAST CLINICAL HISTORY: Peritoneal carcinomatosis. COMPARISON STUDY: Abdominal CT dated 02/28/2021. TECHNIQUE: Following the IV administration of 94 of Optiray 320, CT scan of the chest, abdomen, and p bernardo was performed from the thoracic inlet to the proximal femora. Images are reviewed in the axial, sagittal, and coronal planes. IV contrast was administered without complication. Oral contrast was u tilized. A dose lowering technique was utilized adhering to the principles of ALARA. CT DOSE: 566.53 mGy.cm FINDINGS: CHEST: Thyroid: Imaged portions of the thyroid gland are normal in size and attenuation. Thoracic aorta: The thoracic aorta is normal in caliber and demonstrates bovine variant arch anatomy. No dissection is seen. Pulmonary vasculature: The pulmonary trunk is normal in caliber. There are no filling defects identif ied in the central pulmonary vessels to indicate pulmonary embolus. Note that this examination was no t protocoled for evaluation of the pulmonary arteries. Heart: The heart is normal in size and without pericardial effusion. There are coronary artery calcif ications. Lungs and pleural spaces: There are trace pleural effusions with dependent atelectasis. There is no a irspace consolidation typical for pneumonia. No concerning pulmonary lesion is identified. Mediastinum: There is no mediastinal lymphadenopathy. Rebekah: Clear. Axillae: There is no axillary lymphadenopathy. Bony thorax: The skeletal structures are osteopenic. No lytic or blastic lesions are identified. ABDOMEN AND PELVIS: Liver: The contrast-enhanced liver is normal in size, contour, and attenuation. There is no intra- or extrahepatic biliary ductal dilatation. The hepatic veins and portal veins are patent. There is an i ndeterminant 1.2 cm low-attenuation the left lobe seen on image #53. Gallbladder: Unremarkable. Spleen: The spleen is normal in size and attenuation. Peritoneal metastases scallop/invade the anteri or spleen. A 0.9 cm indeterminate splenic hypodensity is seen on image #95. Pancreas: Unremarkable. Adrenal glands: Unremarkable. Kidneys: The contrast enhanced kidneys are normal in size and without hydronephrosis. The kidneys enh ance symmetrically. Renal cysts measure up to 1.9 cm. Additional subcentimeter cortical hypodensities also likely represent cysts but are too small for definitive characterization. A circumaortic left r enal vein is incidentally noted. Abdominal vasculature: The abdominal aorta is normal in course and caliber noting moderate to advance d atherosclerotic calcification. Stomach and bowel: There is a small hiatal hernia. There is no bowel obstruction. Moderate fecal rete ntion is noted throughout the colon. Enteric contrast reaches the transverse colon. There are scatter ed colonic diverticula without CT evidence of acute diverticulitis. There is wall thickening identifi ed involving the sigmoid colon on image #316 and involving the splenic flexure on image #80. This lik guru represents serosal metastatic disease.. The appendix is not clearly visualized. Peritoneum: There is no intraperitoneal free air or abdominal ascites. There is evidence of extensive peritoneal carcinomatosis. Mass lesions are seen throughout the mesentery in the abdomen and pelvis. A medical billing representative lesion in the ventral mid abdomen on image #174 measures approximately 5.5 x 4 cm. A lesion the right lower quadrant on image #224 measures 4.5 x 4.9 cm. A lesion adjacent to the cecum on image #244 measures 3.7 x 3.0 cm. An approximately 10 x 5 cm lesion in the left upper quadrant as seen on image #64. This likely invades the greater curvature of the stomach. Lymphadenopathy: None. Pelvic viscera: The bladder is normal as visualized. The uterus is markedly abnormal in appearance. A large endometrial mass is suggested measuring at least 3.5 cm in thickness. There are bilateral zac d and cystic ovarian masses, measuring 4.8 x 4.1 cm on the right and 3.2 x 2.5 cm on the left. Skeletal structures: The skeletal structures are osteopenic. No lytic or blastic lesions are seen. IMPRESSION: 1. Findings are consistent with extensive peritoneal carcinomatosis as detailed above. No abdominal a scites is seen. 2. There are numerous serosal lesions, and lesions in the left upper quadrant likely invade the great er curvature of the stomach and the spleen. 3. The endometrium is markedly thickened and heterogeneous, and there are also bilateral ovarian mass es. A primary endometrial carcinoma is favored, with ovarian carcinoma a differential consideration. 4. There are indeterminant hypodensities in the left lobe of liver and the spleen. Metastatic deposit s are not excluded. 5. There is no evidence of intrathoracic metastatic disease. 6. Trace pleural effusions. 7. There is no bowel obstruction. 8. Additional findings as above. ACT 112: Negative or not required by law. Electronically signed by: Morgan Rawls M.D. 03/01/2021 10:13 AM
--- NOTE | 2021-03-01 10:59 | Consultation Report ---
DATE OF CONSULTATION: 03/01/2021 REASON FOR CONSULTATION: Peritoneal carcinomatosis. HISTORY OF PRESENT ILLNESS: The patient is a pleasant 65-year-old female who was admitted through the Emergency Room last night with intermittent lower abdominal upper pelvic pain. The patient states she has been struggling with intermittent dull quality pain for the past couple of months. According to patient, she had visited with her primary provider who recommended Metamucil. The patient believe something serious was going wrong and was not satisfied with that recommendation. She presented to the Emergency Room and I was contacted by the Emergency Room physician alerting me to noncontrast CT scan result, which confirmed the presence of what appears to be peritoneal carcinomatosis. At the bedside this morning, patient relates the same complaint of intermittent pain. She also claims to have had frequent bouts of diarrhea and near fecal incontinence at times. She denies fevers, chills or sweats. She is not anorexic or losing weight. 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 PAST MEDICAL HISTORY: Includes hyperlipidemia, type 2 diabetes mellitus and hypertension. PAST SURGICAL HISTORY: Previous dental surgery. MEDICATIONS: Xalatan 1 drop ophthalmic in affected eye daily, salt tablets 2 tablets p.o. at bedtime, curcumin 1 tablet p.o. every day. ALLERGIES: HYDROCODONE AND SULFA. 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 She is . She has no children. She is not a smoker, does not use illicit drugs. She does enjoy a glass of wine on social occasions. FAMILY HISTORY: Her father attributable to lung cancer. No first-degree relatives with history of gynecologic malignancy. REVIEW OF SYSTEMS: CONSTITUTIONAL: As per HPI, most notably for intermittent dull abdominal pain. Positive for intermittent diarrhea. No fevers, chills or sweats. She is not anorexic or losing weight. SKIN: No rashes or lesions. No history of dermatoses. HEENT: Negative for headaches, lightheadedness or dizziness. No acute visual or hearing deficits. No sinus symptoms, sore throat or dysphagia. LYMPH: No history of lymphoproliferative disease. CARDIAC: No history of coronary artery disease. No current angina or palpitations. PULMONARY: No history of COPD. She is not short of breath, dyspneic or orthopneic. GASTROINTESTINAL: As as per the HPI. GENITOURINARY: No hematuria, dysuria, urinary incontinence. PSYCHIATRIC: Negative for anxiety, depression or psychoses. MUSCULOSKELETAL: Negative for skeletal pain. No arthralgias, no focal muscle weakness. ENDOCRINE: Negative for thyroid disease. Positive for type 2 diabetes, diet controlled. NEUROLOGIC: Negative for seizure, stroke, or migraine headache. HEMATOLOGIC: Positive for mild thrombocytosis. PHYSICAL EXAMINATION: GENERAL: A very pleasant 65-year-old female, awake, alert and appropriate, in no acute distress. VITAL SIGNS: Temperature 36.7, pulse 84, respiratory rate 20, blood pressure 133/74. SKIN: Warm, dry, noncyanotic without petechia, rash or ecchymosis. Turgor is good. HEENT: Atraumatic, normocephalic. Eyes: PERRLA, EOMI. Sclerae nonicteric. No conjunctival injection. Nares patent without rhinorrhea or discharge. Throat clear. Tongue midline. Mucous membranes are moist. No buccal lesions or ulcerations. NECK: Supple without JVD or thyromegaly. LYMPH: Could not appreciate cervical or supraclavicular palpable nodes. HEART: Regular rate and rhythm. No clicks, rubs, murmurs or gallops. LUNGS: Clear to auscultation bilaterally. ABDOMEN: Soft, nontender, nondistended, without palpable hepatosplenomegaly. Bowel sounds are active. No rigidity or guarding. No palpable hepatosplenomegaly. EXTREMITIES: Musculoskeletal strength and pulses are equal in all 4 quadrants. No clubbing, cyanosis or edema. NEUROLOGICALLY: She is awake, alert and oriented x3. Cranial nerves are grossly intact. RADIOGRAPHIC DATA: CT scan of the abdomen, noncontrasted reveals innumerable peritoneal nodules, abdominal carcinomatosis, diagnosis of exclusion, recommend oncologic referral. Dopplers of the lower extremities negative. LABORATORY DATA: WBC count 10,310, hemoglobin 13.7, platelet count 416,000. Sodium 135, potassium 4.1, chloride 102, carbon dioxide 22, creatinine 0.85, BUN 16. Lipase 458. Urinalysis, 5-10 WBCs, positive for leukocyte esterase, positive for ketones, 3+. IMPRESSION: 1. Abdominal pain (nonspecific). 2. Intermittent uncontrolled diarrhea. 3. Peritoneal carcinomatosis. PLAN: In summary, the patient is a very pleasant 65-year-old female who has been struggling with nonspecific abdominal pain over the past couple of months, sought a consultation with her primary care physician who had ordered labs and a KUB and recommended Metamucil. The patient was not satisfied with recommendation and thus presented to the Emergency Room. A noncontrasted CT scan of the abdomen was performed confirming the presence of peritoneal carcinomatosis. ER physician contacted myself and recommended admission to expedite the appropriate workup. Thus, we will proceed with CT scan of the chest, abdomen and pelvis with contrast. If her disease is isolated to the omentum, we will ask general surgery for a laparoscopy and tissue sampling. We will obtain a CA-125 and CEA levels. Omental carcinomatosis in a female is sometimes associated with a Gynecologic malignancy such as ovarian/endometrial. Mesothelioma can also present in this fashion. Once the diagnosis confirmed, we will make arrangements to see the patient in the outpatient arena. Agree with medical management otherwise. If there are questions or concerns, feel free to contact me. I will be installation service representative over the weekend. Thank you for allowing me to participate in the care of this very pleasant patient. NIKO
--- NOTE | 2021-03-01 14:17 | Electrocardiogram Report ---
Test Reason : Blood Pressure : / mmHG Vent. Rate : 096 BPM Atrial Rate : 096 BPM P-R Int : 138 ms QRS Dur : 086 ms QT Int : 356 ms P-R-T Axes : 049 019 033 degrees QTc Int : 449 ms Normal sinus rhythm Normal ECG No previous ECGs available Confirmed by Jude Mckeon ([id number]) on 03/01/2021 2:16:47 PM Referred By: REFERRED SELF Confirmed By:Jude Mckeon
--- NOTE | 2021-03-01 14:34 | Hospitalist Progress Note ---
Date of Service delayed entry March 01, 2021 Assessment & Plan (1) Abdominal pain, lower: secondary to Peritoneal Carcinomatosis in the setting of Bilateral Ovarian Mass, Endometrial Thickening CT abdomen/pelivs: 1. Findings are consistent with extensive peritoneal carcinomatosis as detail ed above. No abdominal ascites is seen. 2. There are numerous serosal lesions, and lesions in the left upper quadrant likely invade the greater curvature of the stomach and the spleen. 3. The endometrium is markedly thickened and heterogeneous, and there are also bilateral ovarian masses. A primary endometrial carcinoma is favored, with ovarian carcinoma a differential consideration. 4. There are indeterminant hypodensities in the left lobe of liver and the spleen. Metastatic deposits are not excluded. 5. There is no evidence of intrathoracic metastatic disease. 6. Trace pleural effusions. 7. There is no bowel obstruction. 8. Additional findings as above. -- Dr Morel: Oncologist consulted s/p US guided biopsy of the peritoneal deposit: Pathology Pending -- patient's abdominal pain significantly relieved by Tramadol, prescription given advised to ff up with Dr. Morel in 1 week for further evaluation and management advised to return to ER if with worsening pain, nausea, etc. Hypertension -- elevated secondary to discomfort/anxiety -- improved DM2 diet-controlled, hemoglobin A1c of 5.28 February 2021 Admission and Anticipated Discharge Date Admission Date: February 28, 2021 Subjective ff up for abdominal pain etc seen resting in bed, not in distress states Tramadol has been relieving the pain pain scale is 0/10 denies nausea/vomiting, dizziness, headache, chest pain, dyspnea, palpitations, no BM yet, no fever/chills no other symptoms Dr. Morel discussed plan of care with the patient at the bedside as well re-evaluated in the afternoon s/p peritoneal deposit biopsy states she continues to feel fine no abdominal pain, no bleeding or leakage on the biopsy site no other symptoms or concerns discussed plan of care with Dr Morel he recommends that patient can be discharged when medically stable and follow up with him in 1 week discussed plan of care with patient she is agreeable with discharge she is understanding, agreeable, comfortable with the plan of care all questions answered contact information for Dr. Morel provided Review of Systems Review of Systems: All systems reviewed & are unremarkable except as noted in Subjective Physical Exam Physical Exam: General- oriented x 3, not in distress, speaks in sentences with no effort or accessory muscle use Eyes- anicteric Neck- no JVD Lungs- clear breath sounds bilaterally, no rales/wheezes Heart- normal rate, regular rhythm; no murmurs Abdomen- normal bowel sounds, nondistended, soft, nontender Extremities- no pretibial edema, no calf tenderness Neuro- alert, oriented x 3; no gross focal neurologic deficits Skin- warm & dry Results & Data Results & [facility] ([facility] Vital Signs (Past 12 Hours) Vital Signs Temp Pulse Pulse Resp BP Pulse Ox 03/01/21 12:31 36.9 C 96 H 20 136/75 95 03/01/21 07:53 36.5 C 88 18 135/76 98 03/01/21 07:47 87 03/01/21 05:11 84 03/01/21 04:50 36.7 C 70 20 133/74 95 all noted and reviewed
--- NOTE | 2021-03-01 16:00 | Ultrasound Report ---
ULTRASOUND-GUIDED FINE-NEEDLE ASPIRATION PERITONEAL LESION CLINICAL HISTORY: Peritoneal carcinomatosis. COMPARISON STUDY: Abdominal CT dated 03/01/2021. PROCEDURE: The risks, benefits, and alternatives to the procedure were discussed with the patient. Wr itten informed consent was obtained. The patient was placed supine in ultrasound, and a 4.9 x 2.9 cm peritoneal implant in the ventral abdomen located slightly to the right of the umbilicus was localize d by ultrasound and selected for fine needle aspiration. The ventral abdominal wall was prepped and d raped in the usual sterile fashion. 1% lidocaine was used for local anesthetic. The lesion was aspira truman under ultrasound guidance with 4 passes utilizing 25-gauge needles. 2 passes were reviewed by the pathologist in real-time and deemed adequate for diagnosis. An additional 2 passes were performed to obtain additional diagnostic material for cell block. The patient tolerated the procedure well and l eft the department in satisfactory condition. IMPRESSION: Completed fine-needle aspiration of a peritoneal implant as above. ACT 112: Negative or not required by law. Electronically signed by: Morgan Rawls M.D. 03/01/2021 3:59 PM
[2021-03-01] MEDS ORDERED: LATANOPROST 0.005% OP SOLN 2.5 ML BTL OP SCH (21:00)
--- NOTE | 2021-03-07 17:51 | Discharge Summary ---
Date of Service March 07, 2021 Admission HPI Per Admitting Provider History obtained from patient, family, and records. Medical history significant for hypertension, hyperlipidemia, DM2 diet- controlled. 6 months history of intermittent achy lower abdominal discomfort without bowel change habits, fever chills, weight loss. No nausea, no vomiting. Appetite okay as per patient. Patient denies dysuria. Patient seen at PCP's office around that time. Metamucil prescribed. Outpatient Cologuard test requested which patient complied with but could not get processed as per records. Patient seen at PCP's office yesterday for persistent abdominal pain complaints. Benign abdominal exam as per documentation. Outpatient KUB and blood work requested. Patient consulted ER for persistent discomfort. Medical History as above 2019 mammogram was normal. No prior colonoscopies. 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 Admission Exam Per Admitting Provider GENERAL: Comfortable, slightly anxious, no respiratory distress SKIN: Normal color, warm HEENT: [place] palpebral conjunctivae, no ptosis, dry buccal mucosa NECK : Supple, no tenderness CHEST : CTA, no tenderness HEART : RRR, no obvious murmurs ABDOMEN: Some distention, minimal hypogastric tenderness EXTREMITIES : Minimal LE swelling, minimal LE tenderness, no other conspicuous deformities noted NEUROLOGIC : Coherent, no facial asymmetry, no other gross focality Principal Diagnosis EXTENSIVE PERITONEAL CARCINOMATOSIS, BILATERAL OVARIAN MASS, ENDOMETRIAL THICKENING Discharge Exam General- oriented x 3, not in distress, speaks in sentences with no effort or accessory muscle use Eyes- anicteric Neck- no JVD Lungs- clear breath sounds bilaterally, no rales/wheezes Heart- normal rate, regular rhythm; no murmurs Abdomen- normal bowel sounds, nondistended, soft, nontender Extremities- no pretibial edema, no calf tenderness Neuro- alert, oriented x 3; no gross focal neurologic deficits Skin- warm & dry Discharge Data Allergies Allergy/AdvReac Type Severity Reaction Status Date / Time Sulfa (Sulfonamide Allergy Mild Rash Verified 02/28/21 20:33 Antibiotics) hydrocodone [From Vicodin] AdvReac Mild Vomiting Verified 02/28/21 20:34 Consultations 02/28/21 19:45 ED Decision to Admit Stat 03/01/21 01:01 Consult Oncology Routine Ordered Studies 02/28/21 17:22 CT abd pelvis wo con Stat CT SCAN OF THE CHEST, ABDOMEN, AND PELVIS WITH IV CONTRAST CLINICAL HISTORY: Peritoneal carcinomatosis. COMPARISON STUDY: Abdominal CT dated 02/28/2021. TECHNIQUE: Following the IV administration of 94 of Optiray 320, CT scan of the chest, abdomen, and pelvis was performed from the thoracic inlet to the proximal femora. Images are reviewed in the axial, sagittal, and coronal planes. IV contrast was administered without complication. Oral contrast was utilized. A dose lowering technique was utilized adhering to the principles of ALARA. CT DOSE: 566.53 mGy.cm FINDINGS: CHEST: Thyroid: Imaged portions of the thyroid gland are normal in size and attenuation. Thoracic aorta: The thoracic aorta is normal in caliber and demonstrates bovine variant arch anatomy. No dissection is seen. Pulmonary vasculature: The pulmonary trunk is normal in caliber. There are no filling defects identified in the central pulmonary vessels to indicate pulmonary embolus. Note that this examination was not protocoled for evaluation of the pulmonary arteries. Heart: The heart is normal in size and without pericardial effusion. There are coronary artery calcifications. Lungs and pleural spaces: There are trace pleural effusions with dependent atelectasis. There is no airspace consolidation typical for pneumonia. No concerning pulmonary lesion is identified. Mediastinum: There is no mediastinal lymphadenopathy. Rebekah: Clear. Axillae: There is no axillary lymphadenopathy. Bony thorax: The skeletal structures are osteopenic. No lytic or blastic lesions are identified. ABDOMEN AND PELVIS: Liver: The contrast-enhanced liver is normal in size, contour, and attenuation. There is no intra- or extrahepatic biliary ductal dilatation. The hepatic veins and portal veins are patent. There is an indeterminant 1.2 cm low-attenuation the left lobe seen on image #53. Gallbladder: Unremarkable. Spleen: The spleen is normal in size and attenuation. Peritoneal metastases scallop/invade the anterior spleen. A 0.9 cm indeterminate splenic hypodensity is seen on image #95. Pancreas: Unremarkable. Adrenal glands: Unremarkable. Kidneys: The contrast enhanced kidneys are normal in size and without hydronephrosis. The kidneys enhance symmetrically. Renal cysts measure up to 1.9 cm. Additional subcentimeter cortical hypodensities also likely represent cysts but are too small for definitive characterization. A circumaortic left renal vein is incidentally noted. Abdominal vasculature: The abdominal aorta is normal in course and caliber noting moderate to advanced atherosclerotic calcification. Stomach and bowel: There is a small hiatal hernia. There is no bowel obstruction. Moderate fecal retention is noted throughout the colon. Enteric contrast reaches the transverse colon. There are scattered colonic diverticula without CT evidence of acute diverticulitis. There is wall thickening identified involving the sigmoid colon on image #316 and involving the splenic flexure on image #80. This likely represents serosal metastatic disease.. The appendix is not clearly visualized. Peritoneum: There is no intraperitoneal free air or abdominal ascites. There is evidence of extensive peritoneal carcinomatosis. Mass lesions are seen throughout the mesentery in the abdomen and pelvis. A product support representative lesion in the ventral mid abdomen on image #174 measures approximately 5.5 x 4 cm. A lesion the right lower quadrant on image #224 measures 4.5 x 4.9 cm. A lesion adjacent to the cecum on image #244 measures 3.7 x 3.0 cm. An approximately 10 x 5 cm lesion in the left upper quadrant as seen on image #64. This likely invades the greater curvature of the stomach. Lymphadenopathy: None. Pelvic viscera: The bladder is normal as visualized. The uterus is markedly abnormal in appearance. A large endometrial mass is suggested measuring at least 3.5 cm in thickness. There are bilateral solid and cystic ovarian masses, measuring 4.8 x 4.1 cm on the right and 3.2 x 2.5 cm on the left. Skeletal structures: The skeletal structures are osteopenic. No lytic or blastic lesions are seen. IMPRESSION: 1. Findings are consistent with extensive peritoneal carcinomatosis as detailed above. No abdominal ascites is seen. 2. There are numerous serosal lesions, and lesions in the left upper quadrant likely invade the greater curvature of the stomach and the spleen. 3. The endometrium is markedly thickened and heterogeneous, and there are also bilateral ovarian masses. A primary endometrial carcinoma is favored, with ovarian carcinoma a differential consideration. 4. There are indeterminant hypodensities in the left lobe of liver and the spleen. Metastatic deposits are not excluded. 5. There is no evidence of intrathoracic metastatic disease. 6. Trace pleural effusions. 7. There is no bowel obstruction. 8. Additional findings as above. 02/28/21 22:09 US venous doppler LE BI Urgent FINDINGS: There is no sonographic evidence of deep venous thrombosis identified in the right or left lower extremity. The common femoral, superficial femoral, and popliteal veins are patent and normally compressible bilaterally. The greater saphenous vein and the profunda femoris vein at the junction with the common femoral vein are clear in both legs. The visualized calf veins are patent bilaterally. IMPRESSION: There is no sonographic evidence of deep venous thrombosis identified in the right or left lower extremity. 03/01/21 14:00 US FNA w/img 1st lesion Stat Hospital Course (1) Abdominal pain, lower: secondary to Peritoneal Carcinomatosis in the setting of Bilateral Ovarian Mass, Endometrial Thickening CT abdomen/pelivs: 1. Findings are consistent with extensive peritoneal carcinomatosis as detailed above. No abdominal ascites is seen. 2. There are numerous serosal lesions, and lesions in the left upper quadrant likely invade the greater curvature of the stomach and the spleen. 3. The endometrium is markedly thickened and heterogeneous, and there are also bilateral ovarian masses. A primary endometrial carcinoma is favored, with ovarian carcinoma a differential consideration. 4. There are indeterminant hypodensities in the left lobe of liver and the spleen. Metastatic deposits are not excluded. 5. There is no evidence of intrathoracic metastatic disease. 6. Trace pleural effusions. 7. There is no bowel obstruction. 8. Additional findings as above. -- Dr Morel: Oncologist consulted s/p US guided biopsy of the peritoneal deposit: Pathology Pending on the time of discharge -- patient's abdominal pain significantly relieved by Tramadol, prescription given advised to ff up with Dr. Morel in 1 week for further evaluation and management advised to return to ER if with worsening pain, nausea, etc. Hypertension -- elevated secondary to discomfort/anxiety -- improved DM2 diet-controlled, hemoglobin A1c of 5.28 February 2021 Total Time Total Time Spent Total Time Spent (In Minutes): > 30 minutes Discharge Plan Discharge Items Patient Disposition: Home - Self-Care Reason For Visit: HTN URG, ABD PAIN Discharge Diagnosis: PERITONEAL CARCINOMATOSIS, ENDOMETRIAL MASS, BILATERAL OVARIAN MASS Activity: As commented below Activity Comment: GRADUALLY INCREASE TOLERATED Lifting: Gradually increase as tolerated Exercise/Sports: Gradually increase as tolerated Driving/Machine Use: NO DRIVING UNTIL FOLLOW UP WITH ONCOLOGIST DR. MOREL Non-emergency contact: Oncologist Call non-emergency contact if: you have any medication questions, your symptoms worsen, your pain is not controlled, your pain is worsening, your pain is unusual for you, your pain is concerning for you and you have a fever Follow-up/Referrals: Jaime Morel V., DO [Physician] - PCP,NO [Primary Care Provider] - Diet: Carb Consistent or DM2 and Heart Healthy Addtl Attending Provider Instructions: CALL THE ONCOLOGIST OR RETURN TO THE ER IMMEDIATELY IF WITH WORSENING OF ABDOMINAL PAIN, NAUSEA/VOMITING, CONSTIPATION, FEVER/CHILLS, SHORTNESS OF BREATH, CHEST PAIN, LEG SWELLING, LEAKAGE OR BLEEDING OF BIOPSY SITE. IF YOU HAVE SUDDEN ONSET OF SEVERE, ABDOMINAL PAIN, OR SHORTNESS OF BREATH/CHEST PAIN PROCEED TO THE ER IMMEDIATELY FOR EVALUATION. FOLLOW UP WITH DR. MOREL NEXT WEEK. HIS CONTACT INFORMATION IS NOTED ABOVE. YOUR NEW MEDICATION IS TRAMADOL 50MG PER TABLET, TO BE TAKEN EVERY 6 HOURS NEEDED FOR PAIN. STAY WELL HYDRATED. ALWAYS AMBULATE FREQUENTLY TO PREVENT FORMATION OF BLOOD CLOTS. Pending Studies at Discharge: Yes Studies:: RESULT OF THE PERITONEAL IMPLANT BIOPSY PERFORMED TODAY. Stand-Alone Forms: My [facility], Smoking Cessation Medications and DC Order Prescriptions: New tramadol 50 mg Tablet 50 mg PO Q6H PRN (Reason: pain) Qty: 20 RF: 0 Continued latanoprost [Xalatan] 0.005 % Drops 1 drp OPHTHALMIC (EYE) DAILY RF: 0 cholecalciferol (vitamin D3) [Vitamin D3] 25 mcg (1,000 unit) Capsule 0 mcg PO DAILY RF: 0 Curcumin Tab 0 mg PO DAILY RF: 0 Salt Tabs 2 tabs PO HS RF: 0 Discharge Orders: Discharge Order (Routine); Ordered 03/01/21 Ordered By: Shar Alexander Admission Data Admit Date/Time: 02/28/21 22:18 Attending Provider: Shar Alexander Admit Provider: Castro Red Primary Care Provider: PCP,NO Other Providers: Castro Red ; Jaime Morel V. Other Interventions: Discharge Summary Assessment (RN) Last Done: 03/01/21 17:16
--- NOTE | 2021-03-20 13:11 | Coding Query ---
A supporting diagnosis is required for the test/procedure performed on this patient in order for us to be reimbursed by the patient's insurance. Please provide a supporting diagnosis for the following test/procedure listed below next to the test name along with your signature. *If there is no additional diagnosis for this patient that would support the following test/procedure please document that below next to the test/procedure. Test(s)/Procedure(s) that require a supporting diagnosis: US Venous Doppler LE BI DIAGNOSIS: leg cramps Provider Signature: JNO Date: 03/27/21 Thank you Mayuri Knight [facility] Information Management Once completed, please kindly fax back to [phone] For questions please call [phone] NIKO
== END 2021-03-01 18:11 | disposition home or self-care (01) ==
LOC: ED 13:45 → 2W 22:18 → INTOOBSV 22:18 → 2W 23:56

== ENCOUNTER 2021-04-03 21:01 | Inpatient (IN) ==
--- NOTE | 2021-04-03 22:00 | Emergency Department Note ---
Impression & Plan Bowel obstruction, Ovarian cancer, Abdominal pain ED Provider Note NAME: ADAM RYDER AGE: 65 SEX: F : 1955 ARRIVES VIA: Walk-In INFORMANT: Patient, ED PROVIDER(S): Chip Mathews MD Chief Complaint: Abdominal pain, abnormal CT scan HPI: I had seen the patient last evening at the time we did discuss that the patient could have had a bowel obstruction but the patient was passing flatus and not having any vomiting. There was an over read on the CAT scan and the patient was called earlier this morning. The patient presented in the evening. The patient still has pain but had trialed some fentanyl patches at home. 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 Patient is following with Dr. Morel and recently initiated chemo Taxol therapy this past . The patient states that she has not been eating or drinking well. The patient has had nausea but without vomiting. The patient states that she is still passing gas but no bowel movement. Patient states that the pain is more in the upper abdomen. It is nonradiating. She describes it is fairly constant and aching. Patient denies any dysuria or hematuria. ROS: See HPI for pertinent positives and negatives. A total of 10 systems were reviewed and otherwise negative. Past medical history: See below Surgical history: See below Social history: See below Physical Exam: GENERAL: Fatigued in appearance. NAD, non-toxic. EYE EXAM: Normal conjunctiva. PERRL, no anisocoria and EOM's grossly intact w/o pain. NECK: Supple, no nuchal rigidity, no adenopathy, non-tender. No signs of m eningismus. LUNGS: Clear to auscultation. Normal chest wall mechanics. HEART: NSR, no MRG. ABDOMEN: Abdomen soft, epigastric and right lower abdominal pain but without peritonitis, normo-active bowel sounds, no masses, no rebound or guarding. BACK: No CVA TTP. SKIN: No rashes and no bruising. UPPER EXTREMITIES: Upper extremities are grossly normal. LOWER EXTREMITIES: Grossly normal, no edema. NEURO EXAM: A&O x3, cranial nerves II-XII grossly intact, normal speech, moves all 4 extremities on command w/o issue. Differential diagnoses: Appendicitis, ovarian cyst, ovarian torsion, ectopic , TOA, PID, infections, diverticulitis, UTI, obstruction, mesenteric ischemia, aortic pathology, inflammatory bowel disease, renal colic, PUD, pancreatitis, biliary pathology, hernia, volvulus, constipation, as well as other pathologies. Course: Patient was seen and evaluated the bedside. Full history physical exam was performed. EKG: None Imaging Studies: CT possible bowel obstruction Cardiac monitoring: An order was placed for continuous cardiac monitoring. The monitor shows a rate of 97 with sinus rhythm. MDM: Did present with concern for abdominal pain and recent abnormal CAT scan. I did order blood work and repeat imaging. Subsequently did speak with the on-call general surgeon Dr. Goldberg and after further discussion the patient is passing gas and without vomiting. He does not believe that she requires operative treatment right at this moment. He did make a suggestion that this potentially may improve with additional chemotherapy. I did speak the on-call hospitalist Dr. Alejandre and the patient was admitted to the medicine service. Past Med/Surg History Medical History Abdominal carcinomatosis Ovarian cancer Surgical History No pertinent past surgical history Social History Smoking Status: Never smoker Second Hand Exposure: No; Hx Alcohol Use: Yes Alcohol type: wine Hx Substance Use: No Preferred Language: Moroccan Communication Ability: Effective Field Geologist Required: No Beliefs That Will Affect Care: None Current Living Situation: Spouse Other Information That Helps Us Care for You: No Feels Safe at Home: Yes Safety Concerns: Feels Safe At This Time Assistive Devices: Glasses Allergies Allergies Allergy/AdvReac Type Severity Reaction Status Date / Time Sulfa (Sulfonamide Allergy Mild Rash Verified 04/03/21 23:57 Antibiotics) hydrocodone [From Vicodin] AdvReac Mild Vomiting Verified 04/03/21 23:57 Home Meds Home Medications Medication Instructions Recorded Confirmed cholecalciferol (vitamin D3) 125 mcg PO DAILY 02/28/21 04/03/21 [Vitamin D3] latanoprost [Xalatan] 1 drp OPHTHALMIC (EYE) DAILY 02/28/21 04/03/21 dexamethasone [Decadron] 20 mg PO USEASDIRECTD 04/02/21 04/03/21 olanzapine [Zyprexa] 2.5 mg PO HS 04/02/21 04/03/21 ondansetron HCl 8 mg PO Q8H PRN 04/02/21 04/03/21 oxycodone [Roxicodone] See Rx Instructions .ROUTE .COMPLEX 04/02/21 04/03/21 prochlorperazine maleate 10 mg PO Q6H PRN 04/02/21 04/03/21 [Compazine] sodium chloride 2,000 mg PO HS 04/02/21 04/03/21 Previous Rx's Medication Instructions Recorded tramadol 50 mg PO Q6H PRN #20 tab 03/01/21 fentanyl 1 patch TRANSDERMAL Q72H #5 ea 04/03/21 Results & Data (ED) Vital Signs Vital Signs - 24 hr 04/03/21 21:03 04/03/21 21:20 04/03/21 21:21 Temperature 36.2 C L Temperature Source Temporal Artery Scan Pulse Rate 104 H 90 93 H Pulse Rate from SpO2 Sensor 92 H 93 H Pulse Rhythm Regular Pulse Strength Normal Respiratory Rate 20 17 26 H Respiratory Effort / Characteristics Non-Labored Spontaneous Respiratory Depth Normal Respiratory Pattern Regular Blood Pressure 134/77 162/82 H Blood Pressure Mean 96 108 Pulse Oximetry 93 94 97 Oxygen Delivery Method Room Air Sepsis Recent Fever Within 48 Hours No Sepsis New/Unexplained Change in Mental Status No Sepsis Action Taken by Nursing No Action Required 04/03/21 21:30 04/03/21 21:31 04/03/21 21:40 Temperature Temperature Source Pulse Rate 90 90 89 Pulse Rate from SpO2 Sensor 90 90 89 Pulse Rhythm Pulse Strength Respiratory Rate 17 17 11 L Respiratory Effort / Characteristics Respiratory Depth Respiratory Pattern Blood Pressure 163/76 H Blood Pressure Mean 105 Pulse Oximetry 95 95 95 Oxygen Delivery Method Sepsis Recent Fever Within 48 Hours Sepsis New/Unexplained Change in Mental Status Sepsis Action Taken by Nursing 04/03/21 21:45 04/03/21 21:50 04/03/21 22:00 Temperature Temperature Source Pulse Rate 90 90 87 Pulse Rate from SpO2 Sensor 91 H 90 87 Pulse Rhythm Pulse Strength Respiratory Rate 24 14 13 Respiratory Effort / Characteristics Respiratory Depth Respiratory Pattern Blood Pressure 150/74 H 154/74 H Blood Pressure Mean 99 100 Pulse Oximetry 94 94 95 Oxygen Delivery Method Sepsis Recent Fever Within 48 Hours Sepsis New/Unexplained Change in Mental Status Sepsis Action Taken by Nursing 04/03/21 22:01 04/03/21 22:10 04/03/21 22:15 Temperature Temperature Source Pulse Rate 86 86 91 H Pulse Rate from SpO2 Sensor 87 85 Pulse Rhythm Pulse Strength Respiratory Rate 11 L 11 L 16 Respiratory Effort / Characteristics Respiratory Depth Respiratory Pattern Blood Pressure 168/87 H Blood Pressure Mean 114 Pulse Oximetry 96 94 Oxygen Delivery Method Sepsis Recent Fever Within 48 Hours Sepsis New/Unexplained Change in Mental Status Sepsis Action Taken by Nursing 04/03/21 22:20 04/03/21 22:30 04/03/21 22:31 Temperature Temperature Source Pulse Rate 92 H 94 H 97 H Pulse Rate from SpO2 Sensor 98 H 97 H Pulse Rhythm Pulse Strength Respiratory Rate 15 21 16 Respiratory Effort / Characteristics Respiratory Depth Respiratory Pattern Blood Pressure 164/91 H Blood Pressure Mean 115 Pulse Oximetry 97 97 Oxygen Delivery Method Sepsis Recent Fever Within 48 Hours Sepsis New/Unexplained Change in Mental Status Sepsis Action Taken by Nursing 04/03/21 22:38 04/03/21 22:47 04/03/21 22:50 Temperature Temperature Source Pulse Rate 93 H 92 H Pulse Rate from SpO2 Sensor 92 H 92 H Pulse Rhythm Pulse Strength Respiratory Rate 14 14 Respiratory Effort / Characteristics Respiratory Depth Respiratory Pattern Blood Pressure Blood Pressure Mean Pulse Oximetry 98 98 Oxygen Delivery Method Room Air Sepsis Recent Fever Within 48 Hours Sepsis New/Unexplained Change in Mental Status Sepsis Action Taken by Nursing 04/03/21 23:00 04/03/21 23:01 04/03/21 23:37 Temperature Temperature Source Pulse Rate 89 90 95 H Pulse Rate from SpO2 Sensor 91 H 90 96 H Pulse Rhythm Pulse Strength Respiratory Rate 17 18 13 Respiratory Effort / Characteristics Respiratory Depth Respiratory Pattern Blood Pressure 184/98 H Blood Pressure Mean 126 Pulse Oximetry 97 97 96 Oxygen Delivery Method Sepsis Recent Fever Within 48 Hours Sepsis New/Unexplained Change in Mental Status Sepsis Action Taken by Nursing 04/03/21 23:40 04/03/21 23:45 04/03/21 23:50 Temperature Temperature Source Pulse Rate 93 H 95 H 95 H Pulse Rate from SpO2 Sensor 94 H 95 H 94 H Pulse Rhythm Pulse Strength Respiratory Rate 13 14 14 Respiratory Effort / Characteristics Respiratory Depth Respiratory Pattern Blood Pressure 173/91 H Blood Pressure Mean 118 Pulse Oximetry 96 95 96 Oxygen Delivery Method Sepsis Recent Fever Within 48 Hours Sepsis New/Unexplained Change in Mental Status Sepsis Action Taken by Nursing 04/04/21 00:00 04/04/21 00:12 04/04/21 00:13 Temperature Temperature Source Pulse Rate 102 H 101 H 97 H Pulse Rate from SpO2 Sensor 102 H 100 H 97 H Pulse Rhythm Pulse Strength Respiratory Rate 16 13 18 Respiratory Effort / Characteristics Respiratory Depth Respiratory Pattern Blood Pressure 182/114 H Blood Pressure Mean 136 Pulse Oximetry 96 95 96 Oxygen Delivery Method Sepsis Recent Fever Within 48 Hours Sepsis New/Unexplained Change in Mental Status Sepsis Action Taken by Nursing 04/04/21 00:15 04/04/21 00:20 04/04/21 00:30 Temperature Temperature Source Pulse Rate 101 H 97 H 96 H Pulse Rate from SpO2 Sensor 100 H 97 H 96 H Pulse Rhythm Pulse Strength Respiratory Rate 19 12 17 Respiratory Effort / Characteristics Respiratory Depth Respiratory Pattern Blood Pressure 170/100 H 156/93 H Blood Pressure Mean 123 114 Pulse Oximetry 94 93 93 Oxygen Delivery Method Sepsis Recent Fever Within 48 Hours Sepsis New/Unexplained Change in Mental Status Sepsis Action Taken by Nursing 04/04/21 00:31 04/04/21 00:40 04/04/21 00:45 Temperature Temperature Source Pulse Rate 96 H 94 H 92 H Pulse Rate from SpO2 Sensor 96 H 94 H 92 H Pulse Rhythm Pulse Strength Respiratory Rate 15 11 L 13 Respiratory Effort / Characteristics Respiratory Depth Respiratory Pattern Blood Pressure 155/90 H Blood Pressure Mean 111 Pulse Oximetry 94 94 94 Oxygen Delivery Method Sepsis Recent Fever Within 48 Hours Sepsis New/Unexplained Change in Mental Status Sepsis Action Taken by Nursing 04/04/21 00:50 04/04/21 01:00 04/04/21 01:01 Temperature Temperature Source Pulse Rate 90 92 H 94 H Pulse Rate from SpO2 Sensor 90 93 H 94 H Pulse Rhythm Pulse Strength Respiratory Rate 13 12 15 Respiratory Effort / Characteristics Respiratory Depth Respiratory Pattern Blood Pressure 169/92 H Blood Pressure Mean 117 Pulse Oximetry 94 95 95 Oxygen Delivery Method Sepsis Recent Fever Within 48 Hours Sepsis New/Unexplained Change in Mental Status Sepsis Action Taken by Nursing 04/04/21 01:10 04/04/21 01:15 04/04/21 01:20 Temperature Temperature Source Pulse Rate 90 88 88 Pulse Rate from SpO2 Sensor 90 89 88 Pulse Rhythm Pulse Strength Respiratory Rate 14 14 12 Respiratory Effort / Characteristics Respiratory Depth Respiratory Pattern Blood Pressure 157/82 H Blood Pressure Mean 107 Pulse Oximetry 95 95 95 Oxygen Delivery Method Sepsis Recent Fever Within 48 Hours Sepsis New/Unexplained Change in Mental Status Sepsis Action Taken by [facility] Medications Current Medication List: was personally reviewed by pa Laboratory Data Attestation: I reviewed the patient's lab results. Result diagrams: 04/03/21 21:24 04/03/21 21:24 Lab Results 04/03/21 04/03/21 04/03/21 Range/Units 21:24 21:24 22:30 WBC 6.08 (4.8-10.8) K/uL RBC 4.12 L (4.2-5.4) M/uL Hgb 12.4 (12.0-16.0) g/dL Hct 35.3 L (37-47) % MCV 85.7 (80-100) fL MCH 30.1 (25-34) pg MCHC 35.1 (32-36) g/dL RDW Std Deviation 39.9 (36.4-46.3) fL RDW Coeff of Huy 12.7 (11.5-14.5) % Plt Count 334 (130-400) K/uL MPV 9.5 (7.4-10.4) fL Immature Gran % (Auto) 0.3 % Neut % (Auto) 70.1 % Lymph % (Auto) 12.2 % [place] % (Auto) 16.6 % Eos % (Auto) 0.5 % Baso % (Auto) 0.3 % Neut # (Auto) 4.26 (1.4-6.5) K/uL Lymph # (Auto) 0.74 L (1.2-3.4) K/uL [place] # (Auto) 1.01 H (0.11-0.59) K/uL Eos # (Auto) 0.03 (0-0.5) K/uL Baso # (Auto) 0.02 (0-0.2) K/uL Immature Gran # (Auto) 0.02 (0.00-0.02) K/uL Sodium 128 L (136-145) mmol/L Potassium 3.3 L (3.5-5.1) mmol/L Chloride 91 L (98-107) mmol/L Carbon Dioxide 26 (21-32) mmol/L Anion Gap 11.0 (3-11) BUN 9 (7-18) mg/dl Creatinine 0.49 L (0.6-1.2) mg/dl Est Cr Clr Drug Dosing 85.2 ml/min Est GFR ( Amer) 117.7 ml/min Est GFR (Non-Af Amer) 101.5 ml/min BUN/Creatinine Ratio 19.3 (10-20) Glucose 134 H (70-99) mg/dl Osmolality (280-300) mOsm/kg Calcium 9.2 (8.5-10.1) mg/dl Total Bilirubin 0.4 (0.2-1) mg/dl AST 33 (15-37) U/L ALT 15 (12-78) U/L Alkaline Phosphatase 52 (45-117) U/L Total Protein 6.7 (6.4-8.2) gm/dl Albumin 2.9 L (3.4-5.0) gm/dl Globulin 3.8 (2.5-4.0) gm/dl Albumin/Globulin Ratio 0.8 L (0.9-2) Lipase 69 L (73-393) U/L Urine Color Urine Appearance (Clear) Urine pH (4.5-7.5) Ur Specific [place] (1.000-1.030) Urine Protein (Negative) Urine Glucose (UA) (Negative) Urine Ketones (Negative) Urine Blood (Negative) Urine Nitrite (Negative) Urine Bilirubin (Negative) Urine Urobilinogen (Negative) Ur Leukocyte Esterase (Negative) Urine WBC (Auto) (0-5) /hpf Urine RBC (Auto) (0-4) /hpf U Hyaline Cast (Auto) (0-5) /lpf U Epithel Cells (Auto) (0-5) /lpf Urine Bacteria (Auto) (Negative) Urine Osmolality (500-800) mOsm/kg Urine Sodium mmol/L Urine Potassium mmol/L Urine Chloride mmol/L COVID-19 Eval Order Covid19 at [facility] SARS-CoV-2 (PCR) (Negative) 04/03/21 04/03/21 04/03/21 Range/Units 22:30 22:45 23:06 WBC (4.8-10.8) K/uL RBC (4.2-5.4) M/uL Hgb (12.0-16.0) g/dL Hct (37-47) % MCV (80-100) fL MCH (25-34) pg MCHC (32-36) g/dL RDW Std Deviation (36.4-46.3) fL RDW Coeff of Huy (11.5-14.5) % Plt Count (130-400) K/uL MPV (7.4-10.4) fL Immature Gran % (Auto) % Neut % (Auto) % Lymph % (Auto) % [place] % (Auto) % Eos % (Auto) % Baso % (Auto) % Neut # (Auto) (1.4-6.5) K/uL Lymph # (Auto) (1.2-3.4) K/uL [place] # (Auto) (0.11-0.59) K/uL Eos # (Auto) (0-0.5) K/uL Baso # (Auto) (0-0.2) K/uL Immature Gran # (Auto) (0.00-0.02) K/uL Sodium (136-145) mmol/L Potassium (3.5-5.1) mmol/L Chloride (98-107) mmol/L Carbon Dioxide (21-32) mmol/L Anion Gap (3-11) BUN (7-18) mg/dl Creatinine (0.6-1.2) mg/dl Est Cr Clr Drug Dosing ml/min Est GFR ( Amer) ml/min Est GFR (Non-Af Amer) ml/min BUN/Creatinine Ratio (10-20) Glucose (70-99) mg/dl Osmolality (280-300) mOsm/kg Calcium (8.5-10.1) mg/dl Total Bilirubin (0.2-1) mg/dl AST (15-37) U/L ALT (12-78) U/L Alkaline Phosphatase (45-117) U/L Total Protein (6.4-8.2) gm/dl Albumin (3.4-5.0) gm/dl Globulin (2.5-4.0) gm/dl Albumin/Globulin Ratio (0.9-2) Lipase (73-393) U/L Urine Color Yellow Urine Appearance Clear (Clear) Urine pH 6.0 (4.5-7.5) Ur Specific [place] 1.021 (1.000-1.030) Urine Protein 1+ H (Negative) Urine Glucose (UA) 1+ H (Negative) Urine Ketones 4+ H (Negative) Urine Blood Negative (Negative) Urine Nitrite Negative (Negative) Urine Bilirubin Negative (Negative) Urine Urobilinogen Negative (Negative) Ur Leukocyte Esterase Negative (Negative) Urine WBC (Auto) 5-10 H (0-5) /hpf Urine RBC (Auto) 0-4 (0-4) /hpf U Hyaline Cast (Auto) 0 (0-5) /lpf U Epithel Cells (Auto) 10-20 H (0-5) /lpf Urine Bacteria (Auto) Negative (Negative) Urine Osmolality (500-800) mOsm/kg Urine Sodium 92 mmol/L Urine Potassium 29.6 mmol/L Urine Chloride 106 mmol/L COVID-19 Eval Order SARS-CoV-2 (PCR) NEGATIVE (Negative) 04/03/21 04/04/21 Range/Units 23:07 00:01 WBC (4.8-10.8) K/uL RBC (4.2-5.4) M/uL Hgb (12.0-16.0) g/dL Hct (37-47) % MCV (80-100) fL MCH (25-34) pg MCHC (32-36) g/dL RDW Std Deviation (36.4-46.3) fL RDW Coeff of Huy (11.5-14.5) % Plt Count (130-400) K/uL MPV (7.4-10.4) fL Immature Gran % (Auto) % Neut % (Auto) % Lymph % (Auto) % [place] % (Auto) % Eos % (Auto) % Baso % (Auto) % Neut # (Auto) (1.4-6.5) K/uL Lymph # (Auto) (1.2-3.4) K/uL [place] # (Auto) (0.11-0.59) K/uL Eos # (Auto) (0-0.5) K/uL Baso # (Auto) (0-0.2) K/uL Immature Gran # (Auto) (0.00-0.02) K/uL Sodium (136-145) mmol/L Potassium (3.5-5.1) mmol/L Chloride (98-107) mmol/L Carbon Dioxide (21-32) mmol/L Anion Gap (3-11) BUN (7-18) mg/dl Creatinine (0.6-1.2) mg/dl Est Cr Clr Drug Dosing ml/min Est GFR ( Amer) ml/min Est GFR (Non-Af Amer) ml/min BUN/Creatinine Ratio (10-20) Glucose (70-99) mg/dl Osmolality 274 L (280-300) mOsm/kg Calcium (8.5-10.1) mg/dl Total Bilirubin (0.2-1) mg/dl AST (15-37) U/L ALT (12-78) U/L Alkaline Phosphatase (45-117) U/L Total Protein (6.4-8.2) gm/dl Albumin (3.4-5.0) gm/dl Globulin (2.5-4.0) gm/dl Albumin/Globulin Ratio (0.9-2) Lipase (73-393) U/L Urine Color Urine Appearance (Clear) Urine pH (4.5-7.5) Ur Specific [place] (1.000-1.030) Urine Protein (Negative) Urine Glucose (UA) (Negative) Urine Ketones (Negative) Urine Blood (Negative) Urine Nitrite (Negative) Urine Bilirubin (Negative) Urine Urobilinogen (Negative) Ur Leukocyte Esterase (Negative) Urine WBC (Auto) (0-5) /hpf Urine RBC (Auto) (0-4) /hpf U Hyaline Cast (Auto) (0-5) /lpf U Epithel Cells (Auto) (0-5) /lpf Urine Bacteria (Auto) (Negative) Urine Osmolality 642 (500-800) mOsm/kg Urine Sodium mmol/L Urine Potassium mmol/L Urine Chloride mmol/L COVID-19 Eval Order SARS-CoV-2 (PCR) (Negative) Administered Medications Fentanyl (Fentanyl 25 Mcg/Hr Tdsy) 25 mcg TD Q72H HANNY Stop: 04/18/21 02:59 Last Admin: 04/04/21 03:17 Dose: 25 mcg Documented by: [id number] Heparin Sodium (Porcine) (Heparin Sod 5,000 Unit/0.5 Ml Vial) 5,000 units SQ Q12 HANNY Stop: 05/04/21 08:59 Last Admin: 04/04/21 09:02 Dose: 5,000 units Documented by: [id number] Famotidine 20 mg/ Syringe 5 mls @ 2.5 mls/min IV Q12H HANNY Stop: 05/04/21 02:59 Last Admin: 04/04/21 17:45 Dose: 2.5 mls/min Documented by: [id number] Admin: 04/04/21 03:19 Dose: 2.5 mls/min Documented by: [id number] Ketorolac Tromethamine (Ketorolac Tromethamine 15 Mg/Ml Vial) 15 mg IV Q6H PRN PRN Reason: Pain Stop: 04/09/21 02:46 Last Admin: 04/04/21 17:45 Dose: 15 mg Documented by: [id number] Admin: 04/04/21 06:23 Dose: 15 mg Documented by: [id number] Latanoprost (Latanoprost 0.005% Op Soln 2.5 Ml Btl) 1 drops OP DAILY HANNY Stop: 05/04/21 08:59 Last Admin: 04/04/21 08:49 Dose: 1 drops Documented by: [id number] Miscellaneous (Fentanyl Patch Remove & Waste) 1 ea N/A Q3D [facility] Stop: 05/04/21 02:58 Last Admin: 04/04/21 03:16 Dose: 1 ea Documented by: [id number] Cosigned by: [id number] Miscellaneous (Check Fentanyl Patch Placement) 1 ea N/A QS HANNY Stop: 05/04/21 07:59 Last Admin: 04/04/21 17:45 Dose: 1 ea Documented by: [id number] Admin: 04/04/21 09:00 Dose: 1 ea Documented by: [id number] Discontinued Medications Fentanyl Citrate (Fentanyl Citrate 100 Mcg/2 Ml Vial) 50 mcg IV NOW STA Stop: 04/03/21 23:45 Last Admin: 04/04/21 00:12 Dose: 50 mcg Documented by: [id number] Sodium Chloride (Nss 1000ml) 1,000 mls @ 999 mls/hr IV .Q1H1M ONE Stop: 04/03/21 23:06 Last Infusion: 04/03/21 23:45 Dose: 999 mls/hr Documented by: [id number] Admin: 04/03/21 22:13 Dose: 999 mls/hr Documented by: [id number] Ioversol (Optiray 300 100ml) 84 ml IV ONCE ONE Stop: 04/03/21 23:16 Last Admin: 04/03/21 23:16 Dose: 84 ml Documented by: [id number] Imaging Data Radiologist's Impression: Abdomen/Pelvis CT 04/03/21 22:19 CT OF THE ABDOMEN AND PELVIS WITH CONTRAST CLINICAL HISTORY: Possible bowel obstruction. Ovarian cancer. COMPARISON STUDY: CT of the abdomen and pelvis April 02, 2021. TECHNIQUE: Following IV administration of 84 mL of Optiray, axial images of the abdomen and pelvis were obtained from the lung bases to the proximal femurs. Images were reviewed in the axial, sagittal, and coronal planes. IV contrast was administered without complication. Automated exposure control was utilized for the study. A dose lowering technique was utilized adhering to the principles of ALARA. CT DOSE: 282.42 mGy.cm FINDINGS: A small left pleural effusion is again noted. No pneumatosis, free air or portal venous gas is present. Extensive peritoneal implants are noted including a complex conglomerate mass within the pelvis These are similar to prior examination. Capsular/subcapsular implants of the spleen are again noted. A 1.1 cm splenic lesion is unchanged. Bandlike hypodensity within the anterior aspect of the spleen is unchanged. No hepatic lesions are present. The adrenal glands and kidneys are unremarkable with exception of several suspected cysts. There is no hydronephrosis. There are no biliary or pancreatic ductal dilatation. Mild wall thickening of the distal ileum is noted. Moderate dilatation of the ascending colon, hepatic flexure of the colon in the transve rse colon is noted with caliber change at the level of the splenic flexure. Colonic dilatation is similar to CT of April 02, 2011. The findings represent chronic obstruction due to peritoneal implants. No suspicious osseous lesions are present. Major vasculature is patent. IMPRESSION: 1. Findings suggestive of a persistent colonic obstruction with transition point within the splenic flexure due to peritoneal implants. Moderate colonic dilatation. 2. No significant change in extensive peritoneal carcinomatosis. 3. No change in a suspected small splenic infarct. ACT 112: Negative or not required by law. Electronically signed by: Darin Lafleur M.D. 04/04/2021 8:25 AM Discharge Plan Visit Data Chief Complaint: Abdominal Pain Stated Complaint: severe stomach pain ED Provider: Chip Mathews Discharge Problem: Bowel obstruction, Ovarian cancer, Abdominal pain Patient Disposition: Admitted As Inpatient Discharge Instructions Interventions: ED Discharge Assessment Last Done: 04/04/21 02:08 Discharge Problem: Bowel obstruction Qualifiers: Intestinal obstruction type: unspecified Intestinal obstruction extent: unspecified extent Qualified Code(s): K56.609 - Unspecified intestinal obstruction, unspecified as to partial versus complete obstruction Ovarian cancer Qualifiers: Laterality: unspecified laterality Qualified Code(s): C56.9 - Malignant neoplasm of unspecified ovary Abdominal pain Qualifiers: Abdominal location: epigastric Qualified Code(s): R10.13 - Epigastric pain
[2021-04-03] MEDS ORDERED: SODIUM CHLORIDE 0.9% 1000ML 1,000 ML IV ONE (22:06)
[2021-04-03 22:32] LABS: Basophils # (auto) 0.02 K/uL (0-0.2); Basophils % (auto) 0.3 %; Eosinophils # (auto) 0.03 K/uL (0-0.5); Eosinophils % (auto) 0.5 %; Hematocrit (blood only) 35.3 % (37-47); Hemoglobin 12.4 g/dL (12.0-16.0); Immature Granulocytes # (auto) 0.02 K/uL (0.00-0.02); Immature Granulocytes % (auto) 0.3 %; Lymphocytes # (auto) 0.74 K/uL (1.2-3.4); Lymphocytes % (auto) 12.2 %; Mean Corpuscular Hemoglobin 30.1 pg (25-34); Mean Corpuscular Hgb Conc 35.1 g/dL (32-36); Mean Corpuscular Volume 85.7 fL (80-100); Mean Platelet Volume 9.5 fL (7.4-10.4); Monocytes # (auto) 1.01 K/uL (0.11-0.59); Monocytes % (auto) 16.6 %; Neutrophils # (auto) 4.26 K/uL (1.4-6.5); Neutrophils % (auto) 70.1 %; Platelet Count 334 K/uL (130-400); RDW Coefficient of Variation 12.7 % (11.5-14.5); RDW Standard Deviation 39.9 fL (36.4-46.3); Red Blood Count 4.12 M/uL (4.2-5.4); White Blood Count 6.08 K/uL (4.8-10.8)
[2021-04-03 22:40] LABS: Albumin Level 2.9 gm/dl (3.4-5.0); BUN Creatinine Ratio 19.3 (10-20); Calcium 9.2 mg/dl (8.5-10.1); Creatinine Clr Calc Pharmacy 85.2 ml/min; Est GFR (African American) 117.7 ml/min; Est GFR (Non-African American) 101.5 ml/min; Potassium 3.3 mmol/L (3.5-5.1)
[2021-04-03 22:43] LABS: Albumin Globulin Ratio 0.8 (0.9-2); Bilirubin,Total 0.4 mg/dl (0.2-1); Globulin 3.8 gm/dl (2.5-4.0); Total Protein 6.7 gm/dl (6.4-8.2)
[2021-04-03 23:14] LABS: Appearance Urine Clear (Clear); Bacteria Urine Automated Negative (Negative); Bilirubin Urine Negative (Negative); Blood Urine Negative (Negative); Cast Urine Automated 0 /lpf (0-5); Color Urine Yellow; Glucose Urine UA 1+ (Negative); Ketones Urine 4+ (Negative); Leukocyte Esterase Urine Negative (Negative); Nitrite Urine Negative (Negative); Protein Urine 1+ (Negative); RBC Urine Automated 0-4 /hpf (0-4); Specific Gravity Urine 1.021 (1.000-1.030); Urobilinogen Urine Negative (Negative)
[2021-04-03] MEDS ORDERED: OPTIRAY 300 100mL IV ONE (23:15)
[2021-04-03 23:24] LABS: Urine Potassium 29.6 mmol/L
[2021-04-03] MEDS ORDERED: fentaNYL citrate 100 MCG/2 ML VIAL IV STA (23:44)
--- NOTE | 2021-04-04 01:22 | History & Physical Report ---
Date of Service April 04, 2021 Assessment & Plan (1) Bowel obstruction: Patient had progressive abdominal pain, with CT tonight not being able to rule out mechanical obstruction- N.p.o. except sips IV fluids No need for NG tube at this time Zofran 4 mg IV every 6 hours as needed Famotidine 20 mg IV every 12 hours acetaminophen 1000 mg IV every 8 hours as needed pain or fever Toradol 15 mg IV every 6 hours as needed moderate pain We will try to reduce some of patient's narcotic medications as a likely have contributed to relative bowel inertia Present on Admission?: Yes (2) Peritoneal carcinomatosis: Peritoneal carcinomatosis/ovarian cancer- Consult oncology Dr. Morel Present on Admission?: Yes (3) Ovarian cancer: See above Present on Admission?: Yes (4) Hyponatremia: Sodium 128, serum osmolality 274, urine osmolality 642. Suggestive of SIADH- Patient does take 2 g of sodium chloride every evening, however, we need to be held while n.p.o. due to possible mechanical obstruction Present on Admission?: Yes (5) Abdominal pain: Pain control as above, will continue her fentanyl patch, will try to hold oxycodone in favor of IV Tylenol and IV Toradol to minimize potential worsening of obstructive process Present on Admission?: Yes History of Present Illness Chief Complaint: The patient presents to the emergency department with worsening abdominal pain after having been seen in the ED the previous evening. Primary Care Provider: Taiwo Sullivan, The patient is a 65-year-old female with a past medical history including hyponatremia, glaucoma, chronic pain secondary to cancer, peritoneal carcinomatosis, hyperlipidemia, diabetes mellitus type 2 and hypertension. Due to worsening abdominal discomfort after being seen in the ED last evening, she represented to the ED this evening, and is being referred due to imaging studies suggesting a bowel obstruction. Allergies Allergy/AdvReac Type Severity Reaction Status Date / Time Sulfa (Sulfonamide Allergy Mild Rash Verified 04/03/21 23:57 Antibiotics) hydrocodone [From Vicodin] AdvReac Mild Vomiting Verified 04/03/21 23:57 Home Medications Medication Instructions Recorded Confirmed Type cholecalciferol (vitamin D3) 125 mcg PO DAILY 02/28/21 04/03/21 History [Vitamin D3] latanoprost [Xalatan] 1 drp OPHTHALMIC (EYE) DAILY 02/28/21 04/03/21 History tramadol 50 mg PO Q6H PRN #20 tab 03/01/21 04/03/21 Rx dexamethasone [Decadron] 20 mg PO USEASDIRECTD 04/02/21 04/03/21 History olanzapine [Zyprexa] 2.5 mg PO HS 04/02/21 04/03/21 History ondansetron HCl 8 mg PO Q8H PRN 04/02/21 04/03/21 History oxycodone [Roxicodone] See Rx Instructions .ROUTE .COMPLEX 04/02/21 04/03/21 History prochlorperazine maleate 10 mg PO Q6H PRN 04/02/21 04/03/21 History [Compazine] sodium chloride 2,000 mg PO HS 04/02/21 04/03/21 History fentanyl 1 patch TRANSDERMAL Q72H #5 ea 04/03/21 04/03/21 Rx lidocaine HCl [Lidocaine Viscous] 1 applic PO UD 04/03/21 04/03/21 History Past Med/Surg History Medical History Abdominal carcinomatosis Ovarian cancer Surgical History No pertinent past surgical history Social History Smoking Status: Never smoker Second Hand Exposure: No; Hx Alcohol Use: Yes Alcohol type: wine Hx Substance Use: No Preferred Language: Nauruan Communication Ability: Effective 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 Beliefs That Will Affect Care: None Current Living Situation: Spouse Other Information That Helps Us Care for You: No Feels Safe at Home: Yes Safety Concerns: Feels Safe At This Time Assistive Devices: Glasses Review of Systems Review of Systems: The patient denies chest pain, palpitations, shortness of breath, dyspnea on exertion, cough, lower extremity swelling, sore throat, fevers, chills, sweats, blood in urine or stool, dysuria, urinary frequency or urgency, lightheadedness, dizziness, headache, memory loss, loss of consciousness, rash, abnormal bruising or bleeding, imbalance, focal weakness, numbness or tingling in arms or legs, generalized arthralgias or myalgias, back or neck pain, or night sweats. The review of systems is otherwise negative other than for that already noted above, and at least 10 systems have been reviewed. Physical Exam Physical Exam: The patient is awake, alert and oriented 3, well developed and well nourished, normocephalic and atraumatic, lying in bed and in no acute distress. HEENT--PERRL, EOMI, mucous membranes and oropharynx dry. Neck--supple. No JVD. No bruits. Thyroid normal, trachea midline, no adenop athy. Heart--normal S1 and S2. No murmurs, rubs or gallops. Lungs--clear bilaterally, no respiratory distress, no accessory muscle use. Abdomen-- positive bowel sounds, mildly diminished and soft. Nontender. Mildly distended. Extremities--no cyanosis or clubbing. No edema. Dermatologic--normal skin turgor, normal color, no abnormal lymph nodes, no rash. Neurologic--cranial nerves II through XII grossly intact. Rheumatologic--normal range of motion. Psychiatric--normal affect. Results & Data Results & Data ([facility]) Vital Signs (Past 12 Hours) Vital Signs Temp Pulse Resp BP Pulse Ox 04/04/21 00:50 90 13 94 04/04/21 00:45 92 H 13 155/90 H 94 04/04/21 00:40 94 H 11 L 94 04/04/21 00:31 96 H 15 94 04/04/21 00:30 96 H 17 156/93 H 93 04/04/21 00:20 97 H 12 93 04/04/21 00:15 101 H 19 170/100 H 94 04/04/21 00:13 97 H 18 96 04/04/21 00:12 101 H 13 182/114 H 95 04/04/21 00:00 102 H 16 96 04/03/21 23:50 95 H 14 96 04/03/21 23:45 95 H 14 173/91 H 95 04/03/21 23:40 93 H 13 96 04/03/21 23:37 95 H 13 96 04/03/21 23:01 90 18 97 04/03/21 23:00 89 17 184/98 H 97 04/03/21 22:50 92 H 14 98 04/03/21 22:47 93 H 14 98 04/03/21 22:31 97 H 16 97 05/12/21 22:30 94 H 21 164/91 H 97 04/03/21 22:20 92 H 15 04/03/21 22:15 91 H 16 168/87 H 04/03/21 22:10 86 11 L 94 04/03/21 22:01 86 11 L 96 04/03/21 22:00 87 13 154/74 H 95 04/03/21 21:50 90 14 94 04/03/21 21:45 90 24 150/74 H 94 04/03/21 21:40 89 11 L 95 04/03/21 21:31 90 17 95 04/03/21 21:30 90 17 163/76 H 95 04/03/21 21:21 93 H 26 H 97 04/03/21 21:20 90 17 162/82 H 94 04/03/21 21:03 97.2 F L 104 H 20 134/77 93 Laboratory Results Laboratory Results WBC 6.08 K/uL (4.8-10.8) 04/03/21 21:24 RBC 4.12 M/uL (4.2-5.4) L 04/03/21 21:24 Hgb 12.4 g/dL (12.0-16.0) 04/03/21 21:24 Hct 35.3 % (37-47) L 04/03/21 21:24 MCV 85.7 fL (80-100) 04/03/21 21:24 MCH 30.1 pg (25-34) 04/03/21 21:24 MCHC 35.1 g/dL (32-36) 04/03/21 21:24 RDW Std Deviation 39.9 fL (36.4-46.3) 04/03/21 21:24 RDW Coeff of Huy 12.7 % (11.5-14.5) 04/03/21 21:24 Plt Count 334 K/uL (130-400) 04/03/21 21:24 MPV 9.5 fL (7.4-10.4) 04/03/21 21:24 Immature Gran % (Auto) 0.3 % 04/03/21 21:24 Neut % (Auto) 70.1 % 04/03/21 21:24 Lymph % (Auto) 12.2 % 04/03/21 21:24 [place] % (Auto) 16.6 % 04/03/21 21:24 Eos % (Auto) 0.5 % 04/03/21 21:24 Baso % (Auto) 0.3 % 04/03/21 21:24 Neut # (Auto) 4.26 K/uL (1.4-6.5) 04/03/21 21:24 Lymph # (Auto) 0.74 K/uL (1.2-3.4) L 04/03/21 21:24 [place] # (Auto) 1.01 K/uL (0.11-0.59) H 04/03/21 21:24 Eos # (Auto) 0.03 K/uL (0-0.5) 04/03/21 21:24 Baso # (Auto) 0.02 K/uL (0-0.2) 04/03/21 21:24 Immature Gran # (Auto) 0.02 K/uL (0.00-0.02) 04/03/21 21:24 Sodium 128 mmol/L (136-145) L 04/03/21 21:24 Potassium 3.3 mmol/L (3.5-5.1) L 04/03/21 21:24 Chloride 91 mmol/L (98-107) L 04/03/21 21:24 Carbon Dioxide 26 mmol/L (21-32) 04/03/21 21:24 Anion Gap 11.0 (3-11) 04/03/21 21:24 BUN 9 mg/dl (7-18) 04/03/21 21:24 Creatinine 0.49 mg/dl (0.6-1.2) L 04/03/21 21:24 Est Cr Clr Drug Dosing 85.2 ml/min 04/03/21 21:24 Est GFR ( Amer) 117.7 ml/min 04/03/21 21:24 Est GFR (Non-Af Amer) 101.5 ml/min 04/03/21 21:24 BUN/Creatinine Ratio 19.3 (10-20) 04/03/21 21:24 Glucose 134 mg/dl (70-99) H 04/03/21 21:24 Osmolality 274 mOsm/kg (280-300) L 04/04/21 00:01 Calcium 9.2 mg/dl (8.5-10.1) 04/03/21 21:24 Total Bilirubin 0.4 mg/dl (0.2-1) 04/03/21 21:24 AST 33 U/L (15-37) 04/03/21 21:24 ALT 15 U/L (12-78) 04/03/21 21:24 Alkaline Phosphatase 52 U/L (45-117) 04/03/21 21:24 Total Protein 6.7 gm/dl (6.4-8.2) 04/03/21 21:24 Albumin 2.9 gm/dl (3.4-5.0) L 04/03/21 21:24 Globulin 3.8 gm/dl (2.5-4.0) 04/03/21 21:24 Albumin/Globulin Ratio 0.8 (0.9-2) L 04/03/21 21:24 Lipase 69 U/L (73-393) L 04/03/21 21:24 Urine Color Yellow 04/03/21 23:06 Urine Appearance Clear (Clear) 04/03/21 23:06 Urine pH 6.0 (4.5-7.5) 04/03/21 23:06 Ur Specific [place] 1.021 (1.000-1.030) 04/03/21 23:06 Urine Protein 1+ (Negative) H 04/03/21 23:06 Urine Glucose (UA) 1+ (Negative) H 04/03/21 23:06 Urine Ketones 4+ (Negative) H 04/03/21 23:06 Urine Blood Negative (Negative) 04/03/21 23:06 Urine Nitrite Negative (Negative) 04/03/21 23:06 Urine Bilirubin Negative (Negative) 04/03/21 23:06 Urine Urobilinogen Negative (Negative) 04/03/21 23:06 Ur Leukocyte Esterase Negative (Negative) 04/03/21 23:06 Urine WBC (Auto) 5-10 /hpf (0-5) H 04/03/21 23:06 Urine RBC (Auto) 0-4 /hpf (0-4) 04/03/21 23:06 U Hyaline Cast (Auto) 0 /lpf (0-5) 04/03/21 23:06 U Epithel Cells (Auto) 10-20 /lpf (0-5) H 04/03/21 23:06 Urine Bacteria (Auto) Negative (Negative) 04/03/21 23:06 Urine Osmolality 642 mOsm/kg (500-800) 04/03/21 23:07 Urine Sodium 92 mmol/L 04/03/21 22:45 Urine Potassium 29.6 mmol/L 04/03/21 22:45 Urine Chloride 106 mmol/L 04/03/21 22:45 COVID-19 Eval Order Covid19 at [facility] 04/03/21 22:30 SARS-CoV-2 (PCR) NEGATIVE (Negative) 04/03/21 22:30 Diagnostic Findings [facility] Patient: ADAM RYDER (Female) : 53 Status: ER Date: 04/03/21 23:21 Room #: History: possible bowel obstruction Slices: [phone] Priors: Tech: Angel Terrazas @ [phone] Exams: CT ABDOMEN & PELVIS With Contrast Contrast: IV Amt: 84cc optiray 300 Accession Numbers: [id number] Preliminary Findings Only See Final Report For Complete Findings CT ABDOMEN & PELVIS With Contrast: Difficult to run the bowel. There is colonic distention, cannot exclude mechanical obstruction. Cut off level in the left upper quadrant-splenic flexure region. Enteric contrast may be useful Some thickened distal small bowel loops. Diffuse peritoneal carcinomatosis Low-attenuation lesions related to the spleen Complex pelvic mass lesions. Appendix not identified. No radiodense gallstones. Left renal cyst and too small to characterize low attenuation foci in the kidneys. Small left pleural effusion. Radiologist: Jt Edgar M.D. Study ready at 23:39 and initial results transmitted at 23:44 *This report constitutes a preliminary interpretation only. Non-acute findings felt to be unrelated to the clinical presentation may not be discussed in this report. The study will be interpreted and a final report will be generated by the local Radiologist the following shift. To reach the hospital radiology department call [phone]. If a discrepancy is found between the preliminary and final interpretations of this study, please notify us via our Client Portal at [email or web address].You can also fax this report with a description of the discrepancy, or include the final report, to our daytime fax number [phone].If faxing, please indicate the severity of discrepancy using one of the following categories: [ ] 1 - Agree/Informational [ ] 2 - Unlikely to Affect Management [ ] 3 - Possible Eventual Change of Management [ ] 4 - Probable Immediate Change of Management For all other patient related information, please fax us at [phone] [id number] Code Status & VTE Plan Code Status Full code VTE Prophylaxis Plan VTE Prophylaxis will be ordered: Yes PG Care Time/CCT Total # of Minutes Spent Total Time Spent with Patient: Total time spent is greater than 50% in coordination of care (as documented) at patient's floor/unit and/or counseling patient: Coding Level of Care Code 69617 Initial Inpt Care Lvl 2 Diagnoses Bowel obstruction K56.609 Peritoneal carcinomatosis C78.6 Ovarian cancer C56.9 Hyponatremia E87.1 Abdominal pain R10.84 Abdominal location: generalized (1) Abdominal pain Abdominal location: generalized Qualified Code(s): R10.84 - Generalized abdominal pain
[2021-04-04] MEDS ORDERED: LIDOCAINE VISCOUS 2% 15 ML UDC PO SCH (02:34)
[2021-04-04] MEDS ORDERED: ACETAMINOPHEN 1000 MG/100 ML IV IV PRN (02:34)
[2021-04-04] MEDS: fentaNYL 25 MCG/HR TDSY TD SCH (03:17)
[2021-04-04] MEDS: FAMOTIDINE 20 MG in SYRINGE 3 ML IV SCH ×2 (03:19→17:45)
[2021-04-04] MEDS: KETOROLAC TROMETHAMINE 15 MG/ML VIAL IV PRN ×2 (06:23→17:45)
--- NOTE | 2021-04-04 08:26 | CT Scan Report ---
CT OF THE ABDOMEN AND PELVIS WITH CONTRAST CLINICAL HISTORY: Possible bowel obstruction. Ovarian cancer. COMPARISON STUDY: CT of the abdomen and pelvis April 02, 2021. TECHNIQUE: Following IV administration of 84 mL of Optiray, axial images of the abdomen and pelvis we re obtained from the lung bases to the proximal femurs. Images were reviewed in the axial, sagittal, and coronal planes. IV contrast was administered without complication. Automated exposure control wa s utilized for the study. A dose lowering technique was utilized adhering to the principles of ALARA . CT DOSE: 282.42 mGy.cm FINDINGS: A small left pleural effusion is again noted. No pneumatosis, free air or portal venous gas is present. Extensive peritoneal implants are noted including a complex conglomerate mass within the pelvis These are similar to prior examination. Capsular/subcapsular implants of the spleen are again noted. A 1.1 cm splenic lesion is unchanged. Bandlike hypodensity within the anterior aspect of the spleen is unchanged. No hepatic lesions are present. The adrenal glands and kidneys are unremarkable with exception of several suspected cysts. There is no hydronephrosis. There are no biliary or pancre atic ductal dilatation. Mild wall thickening of the distal ileum is noted. Moderate dilatation of the ascending colon, hepatic flexure of the colon in the transverse colon is noted with caliber change a t the level of the splenic flexure. Colonic dilatation is similar to CT of April 02, 2011. The findings represent chronic obstruction due to peritoneal implants. No suspicious osseous lesions are present. Major vasculature is patent. IMPRESSION: 1. Findings suggestive of a persistent colonic obstruction with transition point within the splenic f lexure due to peritoneal implants. Moderate colonic dilatation. 2. No significant change in extensive peritoneal carcinomatosis. 3. No change in a suspected small splenic infarct. ACT 112: Negative or not required by law. Electronically signed by: Darin Lafleur M.D. 04/04/2021 8:25 AM
[2021-04-04] MEDS: LATANOPROST 0.005% OP SOLN 2.5 ML BTL OP SCH (08:49)
[2021-04-04] MEDS: CHECK fentaNYL PATCH PLACEMENT SCH ×3 (09:00→23:41)
[2021-04-04] MEDS: HEPARIN SOD 5,000 UNIT/0.5 ML VIAL SQ SCH ×2 (09:02→20:57)
--- NOTE | 2021-04-04 16:25 | History & Physical Bridge Note ---
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 Morel and she says she has been in contact with an oncologist at [facility] I will speak with Dr. Morel tomorrow
[2021-04-04] MEDS: ONDANSETRON INJ 2 MG/ML 2 ML VIAL IV PRN (20:57)
[2021-04-05] MEDS: KETOROLAC TROMETHAMINE 15 MG/ML VIAL IV PRN ×3 (02:23→20:45)
[2021-04-05] MEDS: FAMOTIDINE 20 MG in SYRINGE 3 ML IV SCH ×2 (02:23→14:22)
[2021-04-05 02:49] LABS: Appearance Urine Clear (Clear); Bacteria Urine Automated Negative (Negative); Bilirubin Urine Negative (Negative); Blood Urine Negative (Negative); Color Urine Yellow; Glucose Urine UA Trace (Negative); Ketones Urine 4+ (Negative); Leukocyte Esterase Urine Trace (Negative); Nitrite Urine Negative (Negative); Protein Urine Trace (Negative); RBC Urine Automated 0-4 /hpf (0-4); Specific Gravity Urine 1.024 (1.000-1.030); Urobilinogen Urine Negative (Negative)
[2021-04-05 06:57] LABS: Basophils # (auto) 0.04 K/uL (0-0.2); Basophils % (auto) 0.8 %; Eosinophils # (auto) 0.07 K/uL (0-0.5); Eosinophils % (auto) 1.4 %; Hematocrit (blood only) 33.8 % (37-47); Immature Granulocytes # (auto) 0.01 K/uL (0.00-0.02); Immature Granulocytes % (auto) 0.2 %; Lymphocytes % (auto) 21.4 %; Mean Corpuscular Hemoglobin 29.7 pg (25-34); Mean Corpuscular Hgb Conc 35.5 g/dL (32-36); Mean Corpuscular Volume 83.7 fL (80-100); Mean Platelet Volume 9.2 fL (7.4-10.4); Monocytes # (auto) 1.16 K/uL (0.11-0.59); Monocytes % (auto) 22.6 %; Neutrophils # (auto) 2.76 K/uL (1.4-6.5); Neutrophils % (auto) 53.6 %; Platelet Count 315 K/uL (130-400); RDW Coefficient of Variation 12.7 % (11.5-14.5); RDW Standard Deviation 38.6 fL (36.4-46.3); Red Blood Count 4.04 M/uL (4.2-5.4); White Blood Count 5.14 K/uL (4.8-10.8)
[2021-04-05 07:30] LABS: Albumin Level 2.9 gm/dl (3.4-5.0); BUN Creatinine Ratio 21.7 (10-20); Calcium 8.8 mg/dl (8.5-10.1); Creatinine Clr Calc Pharmacy 97.1 ml/min; Est GFR (African American) 122.8 ml/min; Magnesium 1.9 mg/dl (1.8-2.4)
[2021-04-05 07:32] LABS: Albumin Globulin Ratio 0.8 (0.9-2); Bilirubin,Total 0.4 mg/dl (0.2-1); Globulin 3.5 gm/dl (2.5-4.0); Total Protein 6.4 gm/dl (6.4-8.2)
[2021-04-05] MEDS: CHECK fentaNYL PATCH PLACEMENT SCH ×2 (08:52→15:41)
[2021-04-05] MEDS: HEPARIN SOD 5,000 UNIT/0.5 ML VIAL SQ SCH ×2 (08:53→20:49)
[2021-04-05] MEDS: LATANOPROST 0.005% OP SOLN 2.5 ML BTL OP SCH (08:53)
[2021-04-05] MEDS ORDERED: POTASSIUM CHLORIDE CRTAB 20 MEQ TABCR PO STA (09:26)
[2021-04-05] MEDS: POTASSIUM CHLORIDE / WTR 10 MEQ/100 ML PLCT IV SCH ×2 (09:30→09:34)
--- NOTE | 2021-04-05 12:32 | Hospitalist Progress Note ---
Date of Service April 05, 2021 Assessment & Plan (1) Bowel obstruction: CT shows evidence of large bowel obstruction with obstruction site at splenic flexure similar to CT on 04/02/21 abdomen is soft, flat, tympanic she is passing flatus, will advance to full liquid diet, have her ambulate in th e hallway will consult general surgery for completeness and per request of patient and her surgical oncologist at [facility] certainly if she would have complete obstruction, increasing pain then if she wants surgery it would have to be at tertiary care ultimately she may need to go for surgery as this will be an ongoing issue due to the carcinomatosis K low at 3.0, will replace to get above 3.5 (2) Peritoneal carcinomatosis: Peritoneal carcinomatosis/ovarian cancer- Consult oncology Dr. Morel - first chemotherapy was last week, tolerated well was scheduled for 2nd round of chemotherapy on 04/04 but placed on hold due to hospitalization follows remotely with [facility], unsure if she has actually seen them in person, was just diagnosed with the ovarian CA in February 2021 (3) Ovarian cancer: See above (4) Hyponatremia: Sodium 128, serum osmolality 274, urine osmolality 642. Suggestive of SIADH- Patient does take 2 g of sodium chloride daily prior to admission Na up to 133 today (5) Abdominal pain: Pain control as above, will continue her fentanyl patch, will try to hold oxycodone in favor of IV Tylenol and IV Toradol to minimize potential worsening of obstructive process (6) Hypokalemia: low at 3.0 start on 20mEq TID Admission and Anticipated Discharge Date Admission Date: April 04, 2021 Subjective patient is passing some flatus, she is not thrilled with the options for clear liquid, told her I could advance to full liquid no BM yet, she denies nausea/vomiting, she does have an appetite she said her was going to bring her in some salad, I told her that was not a good idea until we know she is moving her bowels discussed with Dr. Morel, he said he spoke with a surgical oncologist at [facility] at patient's request the physician there was requesting that we have general surgery see the patient I explained that no surgeon here would operate on her if she does in fact need surgery, but I will get surgery on board for completeness the patient's abdomen is soft, ND with normoactive bowel sounds K is low at 3.0, offered to replace IV but she wanted to take PO potassium Review of Systems Review of Systems: All systems reviewed & are unremarkable except as noted in Subjective Constitutional: no fever, no chills, no sweats, no fatigue and no weakness Respiratory: no cough and no dyspnea Cardiovascular: no chest pain and no edema Gastrointestinal: + abdominal pain (mild, diffuse, ongoing issue with the carcinomatosis) and + constipation (passing some flatus this morning); no nausea, no vomiting and no diarrhea/loose stools Physical Exam Constitutional: WD/WN, vitals as above cooperative and comfortable Neck: trachea midline, no thyromegaly Respiratory: normal respiratory effort, lungs clear to auscultation Cardiovascular: RRR, no murmur, no edema Gastrointestinal (Abdomen): Inspection/Auscultation: abdomen normal to inspection and normal bowel sounds; abdomen not distended Percussion/Palpation: + abdomen tender (mild, diffuse), abdomen soft and + tympanic to percussion; no guarding and abdomen not rigid Musculoskeletal: no cyanosis or clubbing, extremities motor strength 5/5 Skin: no rashes, warm and dry Neurologic: patellar DTR's 2+ bilat, sensation intact and PERRL, EOMI, accommodation nl, no face palsy, no dysarthria Psychiatric: A+Ox3, euthymic affect Lymphatic: no cervical or axillary lymphadenopathy Results & Data Results & Data ([facility]) Vital Signs (Past 12 Hours) Vital Signs Temp Pulse Resp BP Pulse Ox 04/05/21 07:18 37.1 C 89 16 145/80 H 94 Laboratory Results Laboratory Results - last 24 hr 04/05/21 04/05/21 04/05/21 02:40 06:30 06:30 WBC 5.14 RBC 4.04 L Hgb 12.0 Hct 33.8 L MCV 83.7 MCH 29.7 MCHC 35.5 RDW Std Deviation 38.6 RDW Coeff of Huy 12.7 Plt Count 315 MPV 9.2 Immature Gran % (Auto) 0.2 Neut % (Auto) 53.6 Lymph % (Auto) 21.4 [place] % (Auto) 22.6 Eos % (Auto) 1.4 Baso % (Auto) 0.8 Neut # (Auto) 2.76 Lymph # (Auto) 1.10 L [place] # (Auto) 1.16 H Eos # (Auto) 0.07 Baso # (Auto) 0.04 Immature Gran # (Auto) 0.01 Sodium 133 L Potassium 3.0 L Chloride 97 L Carbon Dioxide 27 Anion Gap 9.0 BUN 9 Creatinine 0.43 L Est Cr Clr Drug Dosing 97.1 Est GFR ( Amer) 122.8 Est GFR (Non-Af Amer) 106.0 BUN/Creatinine Ratio 21.7 H Glucose 94 Calcium 8.8 Magnesium 1.9 Total Bilirubin 0.4 AST 34 ALT 15 Alkaline Phosphatase 53 Total Protein 6.4 Albumin 2.9 L Globulin 3.5 Albumin/Globulin Ratio 0.8 L Urine Color Yellow Urine Appearance Clear Urine pH 6.0 Ur Specific [place] 1.024 Urine Protein Trace H Urine Glucose (UA) Trace H Urine Ketones 4+ H Urine Blood Negative Urine Nitrite Negative Urine Bilirubin Negative Urine Urobilinogen Negative Ur Leukocyte Esterase Trace H Urine WBC (Auto) 10-30 H Urine RBC (Auto) 0-4 U Hyaline Cast (Auto) 1-5 U Epithel Cells (Auto) 10-20 H Urine Bacteria (Auto) Negative Medications Administered Current Inpatient Medications Acetaminophen (Acetaminophen 1000 Mg/100 Ml Iv) 1,000 mg IV Q8H PRN PRN Reason: Pain or Fever Stop: 04/07/21 02:33 Fentanyl (Fentanyl 25 Mcg/Hr Tdsy) 25 mcg TD Q72H HANNY Stop: 04/18/21 02:59 Last Admin: 04/04/21 03:17 Dose: 25 mcg Documented by: Heparin Sodium (Porcine) (Heparin Sod 5,000 Unit/0.5 Ml Vial) 5,000 units SQ Q12 HANNY Stop: 05/04/21 08:59 Last Admin: 04/05/21 08:53 Dose: Not Given Documented by: Famotidine 20 mg/ Syringe 5 mls @ 2.5 mls/min IV Q12H HANNY Stop: 05/04/21 02:59 Last Admin: 04/05/21 02:23 Dose: 2.5 mls/min Documented by: Ketorolac Tromethamine (Ketorolac Tromethamine 15 Mg/Ml Vial) 15 mg IV Q6H PRN PRN Reason: Pain Stop: 04/09/21 02:46 Last Admin: 04/05/21 12:21 Dose: 15 mg Documented by: Latanoprost (Latanoprost 0.005% Op Soln 2.5 Ml Btl) 1 drops OP DAILY HANNY Stop: 05/04/21 08:59 Last Admin: 04/05/21 08:53 Dose: 1 drops Documented by: Alphonseaneous (Fentanyl Patch Remove & Waste) 1 ea N/A Q3D HANNY Stop: 05/04/21 02:58 Last Admin: 04/04/21 03:16 Dose: 1 ea Documented by: Luanacellaneous (Check Fentanyl Patch Placement) 1 ea N/A QS [facility] Stop: 05/04/21 07:59 Last Admin: 04/05/21 08:52 Dose: 1 ea Documented by: Ondansetron HCl (Ondansetron Inj 2 Mg/Ml 2 Ml Vial) 4 mg IV Q6H PRN PRN Reason: Nausea Stop: 05/04/21 02:33 Last Admin: 04/04/21 20:57 Dose: 4 mg Documented by: Potassium Chloride (Potassium Chloride Crtab 20 Meq Tabcr) 20 meq PO TID [facility] Stop: 05/05/21 13:59 PG Care Time/CCT Total # of Minutes Spent Total Time Spent: 33 Total Time Spent with Patient: Total time spent is greater than 50% in coordination of care (as documented) at patient's floor/unit and/or counseling patient: Coding Level of Care Code 56866 Subseq Hosp Care Lvl 3 Diagnoses Bowel obstruction K56.609 Peritoneal carcinomatosis C78.6 Ovarian cancer C56.9 Hyponatremia E87.1 Abdominal pain R10.84 Abdominal location: generalized Hypokalemia E87.6 (1) Abdominal pain Abdominal location: generalized Qualified Code(s): R10.84 - Generalized abdominal pain
--- NOTE | 2021-04-05 13:46 | Surgery Consultation ---
Date of Consultation April 05, 2021 Assessment & Plan (1) Bowel obstruction: -She seems to be tolerating liquids, would advance slowly as tolerated -If she ultimately is not able to tolerate a diet, she likely would need surgical intervention -She is following with [facility] surgical oncology and on active chemotherapy -Would recommend a transfer to tertiary care center if surgery is required due to the complexity of her situation -Please call with any questions or concerns, will sign off (2) Peritoneal carcinomatosis: (3) Ovarian cancer: History of Present Illness Reason for Consultation: Large Bowel Obstruction Attending Physician: Germán Levin, History of Present Illness This is a 65 yo female who has a PMH of ovarian cancer with carcinomatosis on active chemotherapy who is here with a large bowel obstruction. She is actively being followed by Surgical Oncology at [facility] and plans are to perform neoadjuvant chemotherapy and then a debulking surgery to follow. She states for the last few days she had increasing abdominal pain without N/V. She has not had a BM for a few days but is passing flatus. She is tolerating liquids without problem. Allergies Allergy/AdvReac Type Severity Reaction Status Date / Time Sulfa (Sulfonamide Allergy Mild Rash Verified 04/03/21 23:57 Antibiotics) hydrocodone [From Vicodin] AdvReac Mild Vomiting Verified 04/03/21 23:57 Home Medications Medication Instructions Recorded Confirmed Type cholecalciferol (vitamin D3) 125 mcg PO DAILY 02/28/21 04/03/21 History [Vitamin D3] latanoprost [Xalatan] 1 drp OPHTHALMIC (EYE) DAILY 02/28/21 04/03/21 History tramadol 50 mg PO Q6H PRN #20 tab 03/01/21 04/03/21 Rx dexamethasone [Decadron] 20 mg PO USEASDIRECTD 04/02/21 04/03/21 History olanzapine [Zyprexa] 2.5 mg PO HS 04/02/21 04/03/21 History ondansetron HCl 8 mg PO Q8H PRN 04/02/21 04/03/21 History oxycodone [Roxicodone] See Rx Instructions .ROUTE .COMPLEX 04/02/21 04/03/21 History prochlorperazine maleate 10 mg PO Q6H PRN 04/02/21 04/03/21 History [Compazine] sodium chloride 2,000 mg PO HS 04/02/21 04/03/21 History fentanyl 1 patch TRANSDERMAL Q72H #5 ea 04/03/21 04/03/21 Rx Patient History Medical History Abdominal carcinomatosis Ovarian cancer Surgical History No pertinent past surgical history Social History Smoking Status: Never smoker Second Hand Exposure: No; Hx Alcohol Use: Yes Alcohol type: wine Hx Substance Use: No Preferred Language: Irish Communication Ability: Effective Credit Balance Specialist Required: No Beliefs That Will Affect Care: None Current Living Situation: Spouse Other Information That Helps Us Care for You: No Feels Safe at Home: Yes Safety Concerns: Feels Safe At This Time Assistive Devices: Glasses Review of Systems Constitutional: no fever and no chills Eyes: no worsening vision Ear, Nose, Mouth, Throat: no ear pain and no hearing loss Respiratory: no cough and no dyspnea Cardiovascular: no chest pain and no dyspnea on exertion Gastrointestinal: + abdominal pain; no nausea and no vomiting Genitourinary: no dysuria Musculoskeletal: no back pain and no neck pain Integumentary: no rash and no skin ulcer Neurologic: no headache(s) and no confusion Psychiatric: no behavioral changes and no depression Hematologic / Lymphatic: no easy bleeding and no easy bruising Physical Exam Constitutional: WD/WN, vitals as above Eyes: PERRL, conjunctivae normal, anicteric sclerae ENMT: external ear and nose normal, oropharynx normal Neck: trachea midline, no thyromegaly Respiratory: normal respiratory effort, lungs clear to auscultation Cardiovascular: RRR, no murmur, no edema Gastrointestinal (Abdomen): Inspection/Auscultation: abdomen normal to inspection and + abdomen distended Percussion/Palpation: + abdomen tender (generalized) and abdomen soft; no guarding, abdomen not rigid and no hernia Musculoskeletal: no cyanosis or clubbing, extremities motor strength 5/5 Skin: no rashes, warm and dry Neurologic: PERRL, EOMI, accommodation nl, no face palsy, no dysarthria Psychiatric: A+Ox3, euthymic affect Results & Data ([place]) Vital Signs (Past 12 Hours) Vital Signs Temp Pulse Resp BP Pulse Ox 04/05/21 07:18 37.1 C 89 16 145/80 H 94 PG Care Time/CCT Total # of Minutes Spent Total Time Spent with Patient: Total time spent is greater than 50% in coordination of care (as documented) at patient's floor/unit and/or counseling patient: Coding Level of Care Code 45970 Initial Inpt Care Lvl 2 Diagnoses Bowel obstruction K56.609 Intestinal obstruction extent: unspecified extent Intestinal obstruction type: unspecified Peritoneal carcinomatosis C78.6 Ovarian cancer C56.9 (1) Bowel obstruction Intestinal obstruction extent: unspecified extent Intestinal obstruction type: unspecified Qualified Code(s): K56.609 - Unspecified intestinal obstruction, unspecified as to partial versus complete obstruction
[2021-04-05] MEDS: POTASSIUM CHLORIDE CRTAB 20 MEQ TABCR PO SCH ×2 (14:22→20:44)
[2021-04-05] MEDS: ONDANSETRON INJ 2 MG/ML 2 ML VIAL IV PRN (20:44)
[2021-04-06] MEDS: FAMOTIDINE 20 MG in SYRINGE 3 ML IV SCH ×2 (03:19→16:49)
[2021-04-06] MEDS: CHECK fentaNYL PATCH PLACEMENT SCH ×3 (03:19→16:31)
[2021-04-06] MEDS: KETOROLAC TROMETHAMINE 15 MG/ML VIAL IV PRN ×2 (05:33→13:44)
[2021-04-06 06:13] LABS: Basophils # (auto) 0.03 K/uL (0-0.2); Basophils % (auto) 0.6 %; Eosinophils # (auto) 0.05 K/uL (0-0.5); Hematocrit (blood only) 33.2 % (37-47); Hemoglobin 11.5 g/dL (12.0-16.0); Immature Granulocytes # (auto) 0.01 K/uL (0.00-0.02); Immature Granulocytes % (auto) 0.2 %; Lymphocytes # (auto) 1.16 K/uL (1.2-3.4); Lymphocytes % (auto) 23.1 %; Mean Corpuscular Hemoglobin 29.4 pg (25-34); Mean Corpuscular Hgb Conc 34.6 g/dL (32-36); Mean Corpuscular Volume 84.9 fL (80-100); Mean Platelet Volume 8.7 fL (7.4-10.4); Monocytes # (auto) 1.14 K/uL (0.11-0.59); Monocytes % (auto) 22.7 %; Neutrophils # (auto) 2.63 K/uL (1.4-6.5); Neutrophils % (auto) 52.4 %; Platelet Count 338 K/uL (130-400); RDW Standard Deviation 39.7 fL (36.4-46.3); Red Blood Count 3.91 M/uL (4.2-5.4); White Blood Count 5.02 K/uL (4.8-10.8)
[2021-04-06 06:44] LABS: Albumin Level 2.7 gm/dl (3.4-5.0); BUN Creatinine Ratio 25.8 (10-20); Calcium 9.2 mg/dl (8.5-10.1); Est GFR (African American) 130.2 ml/min; Est GFR (Non-African American) 112.4 ml/min; Potassium 3.2 mmol/L (3.5-5.1)
[2021-04-06 06:47] LABS: Albumin Globulin Ratio 0.8 (0.9-2); Bilirubin,Total 0.3 mg/dl (0.2-1); Globulin 3.4 gm/dl (2.5-4.0); Magnesium 1.8 mg/dl (1.8-2.4); Total Protein 6.1 gm/dl (6.4-8.2)
[2021-04-06] MEDS ORDERED: MAGNESIUM SULFATE / D5W 1 GM/100 ML BAG IV ONE (10:30)
[2021-04-06] MEDS: POTASSIUM CHLORIDE CRTAB 20 MEQ TABCR PO SCH ×3 (10:49→20:52)
[2021-04-06] MEDS: HEPARIN SOD 5,000 UNIT/0.5 ML VIAL SQ SCH ×3 (10:49→20:52)
[2021-04-06] MEDS: LATANOPROST 0.005% OP SOLN 2.5 ML BTL OP SCH (10:52)
[2021-04-06] MEDS: POTASSIUM CHLORIDE / WTR 10 MEQ/100 ML PLCT IV SCH ×2 (11:16→13:16)
--- NOTE | 2021-04-06 12:46 | XRay Report ---
XR abdomen 2V w PA chest CLINICAL HISTORY: colonic obstruction, interval change COMPARISON STUDY: CT scan dated 04/03/2021 FINDINGS: Erect chest reveals no free air. There is no focal pulmonary consolidation. Erect and supin e views the abdomen reveal dilated loops of large and small bowel. There is a colonic transition at t he level of the splenic flexure. Transverse colon measures 7 cm. There are colonic air-fluid levels o n the erect view. IMPRESSION: No significant change from the CT localizer image. Persistent small bowel and colonic di stention with a splenic flexure transition zone. ACT 112: Negative or not required by law. Electronically signed by: Grey Malave M.D. 04/06/2021 12:44 PM
[2021-04-06] MEDS ORDERED: bisacodyL 10 MG SUPP PR STA (17:07)
[2021-04-06] MEDS ORDERED: D5NSS + 20MEQ KCL 20 MEQ/1,000 ML BAG IV SCH (18:30)
[2021-04-06] MEDS ORDERED: bisacodyL 10 MG SUPP PR ONE (19:37)
--- NOTE | 2021-04-06 19:59 | Hospitalist Progress Note ---
Date of Service April 06, 2021 Assessment & Plan (1) Bowel obstruction: admission CT with colonic obstruction with transition point at the splenic flexure. similar findings to CT on 04/02/21. suspect that a peritoneal implant from her carcinomatosis/ovarian cancer is the cause of her large bowel obstruction. despite passing flatus and tolerating full liquid diet she has not had spontaneous BM passage in 7+ days or more. x-rays of abdomen obtained today - similar bowel gas pattern to previous imaging. rectal stool seen. dulcolax x 1 MA given after discussion with gen surg. patient encouraged to allow K and mag supplementation to optimize GI motility. Also discussed with her that fentanyl/narcotics contribute to GI motility issues. [id number] the main issue is anatomic due to carcinomatosis. plan -- spoke with gen surg and oncology. conservative measures today. if any worsening or lack of improvement then will reach out to [facility] in [facility] for transfer. if that is not feasible then I encouraged patient to consider [facility] system. 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 s/p paclitaxol x 1 round earlier this month. was scheduled for 2nd round of chemotherapy on 04/04 but placed on hold due to hospitalization. see above in "bowel obstruction". (3) Ovarian cancer: See above mets to peritoneal cavity, spleen, etc. (4) Hyponatremia: Sodium 126-128 on 04/02 and 04/03, respectively. Serum osmolality 274, urine osmolality 642. 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 Na 133 today. Cont NaCL supplementation. BMP in am. (5) Abdominal pain: 2nd to carcinomatosis and colonic obstruction. Continue fentanyl patch. Continue IV Toradol prn. Additional pain meds as needed. (6) Hypokalemia: repleting. patient reluctant to take K riders. encouraged her to have such to normalize her K in setting of obstruction. continue oral supplementation at 20mEq TID. (7) History of diabetes mellitus: per pt's . no a1c in our system. not on meds at home. glucose this am - 90. check a1c in am. (8) DVT prophylaxis: heparin 5000 BID total time today between speaking with surgery, oncology, pt's , thiago bob films and records -- 90 minutes Admission and Anticipated Discharge Date Admission Date: April 04, 2021 Subjective patient listening to a podcast when I entered the room she was standing near the window listening to her headphones she reports ongoing passage of flatus, but no stool in 7-8+ days she is bloated no nausea tolerating liquid diet without increasing pain or bloating we had very lengthy discussion about transfer to [facility] in [facility] she previously had a telehealth visit with a Dr Yenny Dallas, surgical oncologist they had discussed future debulking surgery she [facility] but she is frustrated with her care there - apparently had called multiple times this week when her abdomen was painful and felt like she didn't get good guidance? when I asked her if she would be willing to transfer to [facility] or [facility] locally for surgical care she was adamant about NOT wanting [facility] she did not say either way about C she then asked about transfer to [facility] in [place] if [facility] wouldn't take her I subsequently spoke with Dr Arenas from gen surg and Dr Morel from oncology about her care x-rays of abdomen obtained - rectal stool seen, but otherwise colonic dilatation present Dr Arenas and I proceeded to order dulcolax suppos x 1 updated by phone with current care plan and his 's status Review of Systems Constitutional: no fever and no chills Respiratory: no cough and no dyspnea Cardiovascular: no chest pain Physical Exam Constitutional: + thin; no acute distress and no altered mental status ENMT: external ear and nose normal, oropharynx normal Respiratory: normal respiratory effort, lungs clear to auscultation Cardiovascular: RRR, no murmur, no edema Heart Sounds: normal S1 and normal S2 Vessels: posterior tibial pulses present and dorsalis pedis pulses present; no JVD Gastrointestinal (Abdomen): Inspection/Auscultation: + abdomen distended and normal bowel sounds (x 4 quadrants ) Percussion/Palpation: + abdomen tender (LLQ and suprapubic region ); no guarding, abdomen not rigid, no hepatosplenomegaly, no hernia and no abdominal mass Skin: no rashes, warm and dry Psychiatric: Orientation: alert and oriented x 3 Affect: + irritable affect Results & Data Results & Data ([facility]) Vital Signs (Past 12 Hours) Vital Signs Temp Pulse Resp BP Pulse Ox 04/06/21 15:39 36.7 C 85 16 143/84 H 94 Laboratory Results Laboratory Results - last 24 hr 04/06/21 04/06/21 05:57 05:57 WBC 5.02 RBC 3.91 L Hgb 11.5 L Hct 33.2 L MCV 84.9 MCH 29.4 MCHC 34.6 RDW Std Deviation 39.7 RDW Coeff of Huy 13.0 Plt Count 338 MPV 8.7 Immature Gran % (Auto) 0.2 Neut % (Auto) 52.4 Lymph % (Auto) 23.1 Ritchie % (Auto) 22.7 Eos % (Auto) 1.0 Baso % (Auto) 0.6 Neut # (Auto) 2.63 Lymph # (Auto) 1.16 L Ritchie # (Auto) 1.14 H Eos # (Auto) 0.05 Baso # (Auto) 0.03 Immature Gran # (Auto) 0.01 Sodium 133 L Potassium 3.2 L Chloride 97 L Carbon Dioxide 24 Anion Gap 12.0 H BUN 9 Creatinine 0.36 L Est Cr Clr Drug Dosing 116.0 Est GFR ( Amer) 130.2 Est GFR (Non-Af Amer) 112.4 BUN/Creatinine Ratio 25.8 H Glucose 90 Calcium 9.2 Magnesium 1.8 Total Bilirubin 0.3 AST 31 ALT 13 Alkaline Phosphatase 50 Total Protein 6.1 L Albumin 2.7 L Globulin 3.4 Albumin/Globulin Ratio 0.8 L PG Care Time/CCT Total # of Minutes Spent Total Time Spent with Patient: Total time spent is greater than 50% in coordination of care (as documented) at patient's floor/unit and/or counseling patient: Prolonged Care Time Prolonged Care Time: Yes Total Prolonged Care Time: 90 Coding Level of Care Code 79227 Subseq Hosp Care Lvl 3 (25 - SIGNIFICANT, SEPARATELY IDENTIFIABLE ) Diagnoses Bowel obstruction K56.600 Intestinal obstruction type: unspecified Intestinal obstruction extent: partial Peritoneal carcinomatosis C78.6 Ovarian cancer C56.9 Hyponatremia E87.1 Abdominal pain R10.84 Abdominal location: generalized Hypokalemia E87.6 History of diabetes mellitus Z86.39 DVT prophylaxis Z29.9 Additional Codes Prolonged Care Time - Prolonged Care Time: Yes ([id number]) Time Spent (min) 90 (1) Bowel obstruction Intestinal obstruction type: unspecified Intestinal obstruction extent: partial Qualified Code(s): K56.600 - Partial intestinal obstruction, unspecified as to cause (2) Abdominal pain Abdominal location: generalized Qualified Code(s): R10.84 - Generalized abdominal pain
[2021-04-07] MEDS: CHECK fentaNYL PATCH PLACEMENT SCH ×4 (00:25→23:09)
[2021-04-07] MEDS: KETOROLAC TROMETHAMINE 15 MG/ML VIAL IV PRN ×3 (00:25→15:03)
[2021-04-07] MEDS: FAMOTIDINE 20 MG in SYRINGE 3 ML IV SCH ×2 (02:23→19:23)
[2021-04-07] MEDS: fentaNYL 25 MCG/HR TDSY TD SCH (02:49)
[2021-04-07 06:16] LABS: Basophils # (auto) 0.01 K/uL (0-0.2); Basophils % (auto) 0.1 %; Eosinophils # (auto) 0.04 K/uL (0-0.5); Eosinophils % (auto) 0.6 %; Hematocrit (blood only) 35.6 % (37-47); Hemoglobin 12.6 g/dL (12.0-16.0); Immature Granulocytes # (auto) 0.01 K/uL (0.00-0.02); Immature Granulocytes % (auto) 0.1 %; Lymphocytes # (auto) 0.75 K/uL (1.2-3.4); Lymphocytes % (auto) 10.8 %; Mean Corpuscular Hgb Conc 35.4 g/dL (32-36); Mean Corpuscular Volume 84.8 fL (80-100); Mean Platelet Volume 8.8 fL (7.4-10.4); Monocytes % (auto) 20.2 %; Neutrophils # (auto) 4.71 K/uL (1.4-6.5); Neutrophils % (auto) 68.2 %; Platelet Count 404 K/uL (130-400); RDW Coefficient of Variation 13.3 % (11.5-14.5); RDW Standard Deviation 40.4 fL (36.4-46.3); White Blood Count 6.92 K/uL (4.8-10.8)
[2021-04-07 06:40] LABS: BUN Creatinine Ratio 27.9 (10-20); Calcium 9.5 mg/dl (8.5-10.1); Creatinine Clr Calc Pharmacy 109.9 ml/min; Est GFR (African American) 127.9 ml/min; Est GFR (Non-African American) 110.4 ml/min; Potassium 4.1 mmol/L (3.5-5.1)
--- NOTE | 2021-04-07 08:12 | Surgery Progress Note ---
Date of Service April 07, 2021 Assessment & Plan (1) Bowel obstruction: -She seems to not be progressing and having increased pain -With her ovarian CA, peritoneal carcinomatosis, active chemotherapy she is a high risk surgical candidate for this institution -Would agree with transfer to tertiary care center for multidisciplinary approach to this complex patient as I believe she may need surgical intervention sooner than originally planned by her surgical oncologist Admission and Anticipated Discharge Date Admission Date: April 04, 2021 Subjective Pt seen and examined. She is in more pain. Afebrile, but slightly tachycardic. No N/V. Had a small BM with help of suppository yesterday Review of Systems Review of Systems: All systems reviewed & are unremarkable except as noted in Subjective Physical Exam Constitutional: + thin and + cachectic Eyes: PERRL, conjunctivae normal, anicteric sclerae Respiratory: normal respiratory effort, lungs clear to auscultation Gastrointestinal (Abdomen): Inspection/Auscultation: + abdomen distended Percussion/Palpation: + abdomen tender (generalized) and abdomen soft; no guarding, abdomen not rigid and no hernia Musculoskeletal: no cyanosis or clubbing, extremities motor strength 5/5 Results & Data ([facility]) Vital Signs (Past 12 Hours) Vital Signs Temp Pulse Resp BP BP Pulse Ox 04/07/21 07:18 36.8 C 107 H 14 163/86 H 94 04/06/21 22:30 36.9 C 89 16 163/89 H 95 PG Care Time/CCT Total # of Minutes Spent Total Time Spent with Patient: Total time spent is greater than 50% in coordination of care (as documented) at patient's floor/unit and/or counseling patient: Coding Level of Care Code 88816 Subseq Hosp Care Lvl 2 Diagnoses Bowel obstruction K56.609 Intestinal obstruction extent: unspecified extent Intestinal obstruction type: unspecified (1) Bowel obstruction Intestinal obstruction extent: unspecified extent Intestinal obstruction type: unspecified Qualified Code(s): K56.609 - Unspecified intestinal obstruction, unspecified as to partial versus complete obstruction
[2021-04-07] MEDS: ONDANSETRON INJ 2 MG/ML 2 ML VIAL IV PRN ×2 (09:34→15:24)
[2021-04-07] MEDS: HEPARIN SOD 5,000 UNIT/0.5 ML VIAL SQ SCH ×2 (09:38→20:47)
[2021-04-07] MEDS: LATANOPROST 0.005% OP SOLN 2.5 ML BTL OP SCH (09:38)
[2021-04-07] MEDS: POTASSIUM CHLORIDE CRTAB 20 MEQ TABCR PO SCH (10:13)
[2021-04-07] MEDS: D5NSS + 20MEQ KCL 20 MEQ/1,000 ML BAG IV SCH ×2 (12:03→23:08)
--- NOTE | 2021-04-07 23:14 | Hospitalist Progress Note ---
Date of Service April 07, 2021 Assessment & Plan (1) Bowel obstruction: admission CT with colonic obstruction with transition point at the splenic flexure. similar findings to CT on 04/02/21. peritoneal metastatic implant from her carcinomatosis/ovarian cancer is the cause of her large bowel obstruction. patient clinically worse today with increasing distension, less flatus, N/V, etc. made patient NPO x for meds. resume IV fluids. ambulate as tolerated. see HPI for events of today. at the conclusion of the day the plan, in addition to the above, is as follows -- re-contact Dr Yenny Morrison at [facility] tomorrow AM to request transfer if there are barriers to this or transfer is declined pt & her to select another back-up plan - they are leaning towards [facility] again she is aware that Dr Arenas has offered diverting colostomy here at [facility] but she continues to decline any surgery at our hospital repeat labs in am (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 s/p paclitaxol x 1 round earlier this month. was scheduled for 2nd round of chemotherapy on 04/04 but placed on hold due to hospitalization. see above in "bowel obstruction". spoke with Dr Morel today once more -- he again recommends transfer; feels inpatient chemotherapy would not solve current problem of her obstruction. (3) Ovarian cancer: See above mets to peritoneal cavity, spleen, etc. (4) Abdominal pain: ongoing 2nd to carcinomatosis and colonic obstruction. Continue fentanyl patch. Continue IV Toradol prn. Add dilaudid IV prn. (5) Hyponatremia: Sodium 126-128 on 04/02 and 04/03, respectively. Serum osmolality 274, urine osmolality 642. 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 Na 132. Cont NaCL supplementation. Resume isotonic IV fluids cautiously. BMP in am. (6) Hypokalemia: repleted and resolved. cont IV KCL in basal fluids. lower K supplement (oral) from TID dosing to once daily. (7) History of diabetes mellitus: per pt's . no a1c in our system. not on meds at home. Hba1c pending. (8) DVT prophylaxis: heparin 5000 BID - change to TID dosing given high risk of VTE with cancer. (9) Discharge planning issues: Called [facility] in [facility] today. Multiple calls to their institution as well as Dr Mayuri Peña. Spoke with Dr Mayuri Peña - surg onc fellow under Dr Yenny Morrison. Dr Peña stated that [facility] does not accept transfers on weekends. They accept transfers M-F, and she would need to be approved by Dr Morrison or rashaun mustafa of her associates before the transfer process could even be initiated. Even if accepted the waiting period for most transfers is a week or more in duration. Called and spoke with colorectal surgery at [facility]. Spoke with Dr Kris Harry, attending on-call for that service. He declined Ms Moran in transfer to [facility]. I spoke with Dr Arenas from general surgery multiple times today. He also called and spoke with Dr Harry - the transfer was still declined. Dr Arenas offered diverting colostomy to patient - she declined such at [facility]. Patient still wanting transfer to [facility] in [facility]. Efforts to achieve this will resume tomorrow am. Pt's was on phone call during my 2nd bedside visit - again see HPI for details. Total time today spent on very, very complex care coordination including numerous calls to outside hospitals, Dr Morel, Dr Arenas, 2 bedside visits, etc -- 140 minutes Admission and Anticipated Discharge Date Admission Date: April 04, 2021 Subjective extensive care coordination today. spoke early in day with Dr Arenas from gen surg who advised Tx to tertiary care. went & saw Ms Moran early in am -- she had "rough night." had lost IV access and then did not have an IV until the am. had nausea much of the night, felt poorly, and then had emesis this am. did not eat breakfast (full liquids) due to GI symptoms. did have stool with the suppository last pm but didn't feel any different/better with such. passing flatus but minimal. continues with lower abdominal pain. we had lengthy discussion about Tx to tertiary care. still prefers [facility] in [facility] due to prior established care with a Dr Brenda Morrison there (had telehealth visit in February). we discussed back-up choices if [facility] cannot take her - ultimately she was ok with [facility], if needed. subsequently was on phone for 60+ minutes with [facility]. spoke with a nurse in their transfer office who ultimately patched me through to a Dr Mayuri Peña, surg onc fellow, who works with Dr Morrison. Dr Peña reported that they do not accept transfers on weekends, and she would have to be accepted by Dr Morrison tomorrow or during the week. transfers tend to be delayed - often 5-7+ days or more waiting on bed. she recommended I speak with oncology again locally in [place] about attempting inpatient chemotherapy since her 04/04 chemo was missed due to this hospitalization. subsequently spoke with [facility] - Dr Leach, colorectal, who declined accepting patient in transfer to [facility]. call to [facility] was about 30 minutes. he advised diverting colostomy. had several additional discussions with Dr Arenas - updated him with calls to [facility]. he spoke with patient at bedside - offered her a diverting colostomy - she declined such at [facility]. I went a 2nd time to the bedside later in the afternoon after all of the above events. patient still not wanting any surgical intervention at [facility]. first choice remains [facility] in [facility] for transfer. was on speaker phone - he had gotten a name of another colorectal surgeon at [facility] and will ultimately forward that name to us (suggesting we might contact that particular person). another back-up choice would be [facility] in [place] per the patient -- but again is very adamant we contact Dr Morrison tomorrow on Thursday. this bedside visit was 20-30 minutes in duration. since the AM she has had no further emesis. still feels poorly with bloating, abd discomfort, etc. Review of Systems Constitutional: + anorexia; no fever and no chills Respiratory: no cough, no dyspnea and no dyspnea on exertion Cardiovascular: no chest pain Gastrointestinal: + abdominal pain, + nausea, + vomiting and + constipation; no diarrhea/loose stools, no blood in stools and no melena Physical Exam Constitutional: + thin; no acute distress and no altered mental status ENMT: external ear and nose normal, oropharynx normal Respiratory: normal respiratory effort, lungs clear to auscultation Cardiovascular: RRR, no murmur, no edema Heart Sounds: normal S1 and normal S2 Vessels: posterior tibial pulses present and dorsalis pedis pulses present; no JVD Gastrointestinal (Abdomen): Inspection/Auscultation: + abdomen distended (wo rse today) and + hypoactive bowel sounds Percussion/Palpation: + abdomen tender (lower quadrants once again); no guarding, abdomen not rigid, no hepa tosplenomegaly, no hernia and no abdominal mass Skin: no rashes, warm and dry Psychiatric: Orientation: alert and oriented x 3 Results & Data Results & Data ([facility]) Vital Signs (Past 12 Hours) Vital Signs Temp Pulse Pulse Resp BP Pulse Ox 04/07/21 23:08 36.8 C 99 H 12 154/86 H 99 04/07/21 14:59 36.9 C 102 H 16 155/87 H 95 Laboratory Results Laboratory Results - last 24 hr 04/07/21 04/07/21 04/07/21 05:30 05:30 05:30 WBC 6.92 RBC 4.20 Hgb 12.6 Hct 35.6 L MCV 84.8 MCH 30.0 MCHC 35.4 RDW Std Deviation 40.4 RDW Coeff of Huy 13.3 Plt Count 404 H MPV 8.8 Immature Gran % (Auto) 0.1 Neut % (Auto) 68.2 Lymph % (Auto) 10.8 Oliver % (Auto) 20.2 Eos % (Auto) 0.6 Baso % (Auto) 0.1 Neut # (Auto) 4.71 Lymph # (Auto) 0.75 L Oliver # (Auto) 1.40 H Eos # (Auto) 0.04 Baso # (Auto) 0.01 Immature Gran # (Auto) 0.01 Sodium 132 L Potassium 4.1 D Chloride 98 Carbon Dioxide 25 Anion Gap 9.0 BUN 11 Creatinine 0.38 L Est Cr Clr Drug Dosing 109.9 Est GFR ( Amer) 127.9 Est GFR (Non-Af Amer) 110.4 BUN/Creatinine Ratio 27.9 H Glucose 127 H Estimat Average Glucose Pending Hemoglobin A1c Pending Calcium 9.5 PG Care Time/CCT Total # of Minutes Spent Total Time Spent with Patient: Total time spent is greater than 50% in co ordination of care (as documented) at patient's floor/unit and/or counseling patient: Prolonged Care Time Prolonged Care Time: Yes Total Prolonged Care Time: 140 Coding Level of Care Code 15180 Subseq Hosp Care Lvl 3 (25 - SIGNIFICANT, SEPARATELY IDENTIFIABLE ) Diagnoses Bowel obstruction K56.600 Intestinal obstruction extent: partial Intestinal obstruction type: unspecified Peritoneal carcinomatosis C78.6 Ovarian cancer C56.9 Laterality: unspecified laterality Abdominal pain R10.84 Abdominal location: generalized Hyponatremia E87.1 Hypokalemia E87.6 History of diabetes mellitus Z86.39 DVT prophylaxis Z29.9 Discharge planning issues Z02.9 Additional Codes Prolonged Care Time - Prolonged Care Time: Yes ([id number]) Time Spent (min) 140 (1) Ovarian cancer Laterality: unspecified laterality Qualified Code(s): C56.9 - Malignant neoplasm of unspecified ovary (2) Bowel obstruction Intestinal obstruction extent: partial Intestinal obstruction type: unspecified Qualified Code(s): K56.600 - Partial intestinal obstruction, unspecified as to cause (3) Abdominal pain Abdominal location: generalized Qualified Code(s): R10.84 - Generalized abdominal pain
[2021-04-08] MEDS: KETOROLAC TROMETHAMINE 15 MG/ML VIAL IV PRN ×3 (02:32→20:30)
[2021-04-08 07:02] LABS: Estimated Average Glucose 126 mg/dl
[2021-04-08 07:12] LABS: BUN Creatinine Ratio 28.8 (10-20); Creatinine Clr Calc Pharmacy 67.4 ml/min; Est GFR (African American) 108.9 ml/min; Potassium 4.2 mmol/L (3.5-5.1)
[2021-04-08] MEDS: CHECK fentaNYL PATCH PLACEMENT SCH ×3 (07:29→22:55)
[2021-04-08] MEDS: HYDROmorphone INJ 0.5 MG/0.5 ML SYR IV PRN (07:35)
[2021-04-08] MEDS: NSS + 20MEQ KCL 20 MEQ/1,000 ML BAG IV SCH ×2 (07:53→21:14)
[2021-04-08] MEDS: HEPARIN SOD 5,000 UNIT/0.5 ML VIAL SQ SCH ×3 (07:55→22:55)
[2021-04-08] MEDS: FAMOTIDINE 20 MG in SYRINGE 3 ML IV SCH ×2 (08:01→20:24)
[2021-04-08] MEDS: POTASSIUM CHLORIDE CRTAB 20 MEQ TABCR PO SCH (08:01)
[2021-04-08] MEDS: LATANOPROST 0.005% OP SOLN 2.5 ML BTL OP SCH (08:01)
[2021-04-08] MEDS: ALPRAZolam 0.25 MG TABLET PO PRN (10:27)
[2021-04-08] MEDS: ONDANSETRON INJ 2 MG/ML 2 ML VIAL IV PRN ×2 (13:46→19:18)
--- NOTE | 2021-04-08 14:56 | Surgery Progress Note ---
Date of Service April 08, 2021 Assessment & Plan (1) Bowel obstruction: -Patient initially was requesting transfer to tertiary care facility if any surgical intervention was needed, however at this point she has not been accepted to any facility -We had a lengthy discussion about the need for relieving her bowel obstruction with a colostomy -She now agrees to proceed with this procedure -Will plan on creation of a loop transverse colostomy tomorrow -Consent obtained, risks discussed including bleeding, infection, stoma complications -She understands this is not a curative procedure for her metastatic ovarian cancer and is only meant to relieve her obstruction Admission and Anticipated Discharge Date Admission Date: April 04, 2021 Subjective Pt seen and examined. Afebrile. Vitals stable. No increased abdominal pain. No N/V. No flatus or BM. Review of Systems Review of Systems: All systems reviewed & are unremarkable except as noted in Subjective Physical Exam Constitutional: + ill appearing Respiratory: normal respiratory effort, lungs clear to auscultation Cardiovascular: RRR, no murmur, no edema Gastrointestinal (Abdomen): Inspection/Auscultation: abdomen normal to inspection and + abdomen distended Percussion/Palpation: + abdomen tender (generalized) and abdomen soft Musculoskeletal: no cyanosis or clubbing, extremities motor strength 5/5 Skin: no rashes, warm and dry Psychiatric: A+Ox3, euthymic affect Results & Data ([facility]) Vital Signs (Past 12 Hours) Vital Signs Temp Pulse Resp BP Pulse Ox 04/08/21 07:57 36.7 C 108 H 16 149/74 H 95 PG Care Time/CCT Total # of Minutes Spent Total Time Spent with Patient: Total time spent is greater than 50% in coordination of care (as documented) at patient's floor/unit and/or counseling patient: Coding Level of Care Code 11237 Subseq Hosp Care Lvl 2 Diagnoses Bowel obstruction K56.609 Intestinal obstruction extent: unspecified extent Intestinal obstruction type: unspecified (1) Bowel obstruction Intestinal obstruction extent: unspecified extent Intestinal obstruction type: unspecified Qualified Code(s): K56.609 - Unspecified intestinal obstruction, unspecified as to partial versus complete obstruction
--- NOTE | 2021-04-08 16:01 | Anesthesiology Consultation ---
Date of Service April 08, 2021 Assessment & Plan (1) Encounter for pre-operative examination: Chart Review Chart Review: Acceptable Risk for Surgery (necessary surgery) and Patient NOT seen in Pre Admission Testing Consults Requested none History Surgery Operation Date: 04/09/21 07:00 Proposed Procedures p Creation of Transverse Loop Colostomy - Chris Arenas DO Height/Weight Height: 5 ft 1 in Weight: 51.6 kg Allergies Allergy/AdvReac Type Severity Reaction Status Date / Time Sulfa (Sulfonamide Allergy Mild Rash Verified 04/03/21 23:57 Antibiotics) hydrocodone [From Vicodin] AdvReac Mild Vomiting Verified 04/03/21 23:57 Medications Home Medications Medication Instructions Recorded Confirmed Last Taken cholecalciferol (vitamin D3) 125 mcg PO DAILY 02/28/21 04/03/21 Unknown [Vitamin D3] latanoprost [Xalatan] 1 drp OPHTHALMIC (EYE) DAILY 02/28/21 04/03/21 Unknown tramadol 50 mg PO Q6H PRN #20 tab 03/01/21 04/03/21 Unknown dexamethasone [Decadron] 20 mg PO USEASDIRECTD 04/02/21 04/03/21 Unknown olanzapine [Zyprexa] 2.5 mg PO HS 04/02/21 04/03/21 Unknown ondansetron HCl 8 mg PO Q8H PRN 04/02/21 04/03/21 Unknown oxycodone [Roxicodone] See Rx Instructions .ROUTE .COMPLEX 04/02/21 04/03/21 Unknown prochlorperazine maleate 10 mg PO Q6H PRN 04/02/21 04/03/21 Unknown [Compazine] sodium chloride 2,000 mg PO HS 04/02/21 04/03/21 Unknown fentanyl 1 patch TRANSDERMAL Q72H #5 ea 04/03/21 04/03/21 Unknown Active Medications Generic Name Dose Route Start Last Admin Trade Name Freq PRN Reason Stop Dose Admin Alprazolam 0.25 mg 04/08/21 09:57 04/08/21 10:27 Alprazolam 0.25 Mg Tablet PO 05/08/21 09:56 0.25 mg Q6H PRN Administration anxiety Fentanyl 25 mcg 04/04/21 03:00 04/07/21 02:49 Fentanyl 25 Mcg/Hr Tdsy TD 04/18/21 02:59 25 mcg Q72H HANNY Administration Heparin Sodium (Porcine) 5,000 units 04/08/21 07:30 04/08/21 15:18 Heparin Sod 5,000 Unit/0.5 Ml Vial SQ 05/08/21 07:29 5,000 units Q8H HANNY Administration Hydromorphone HCl 0.25 mg 04/07/21 11:16 04/08/21 07:35 Hydromorphone Inj 0.5 Mg/0.5 Ml Syr IV 04/21/21 11:15 0.25 mg Q3H PRN Administration Pain Famotidine 20 mg/ Syringe 5 mls @ 2.5 mls/min 04/04/21 03:00 04/08/21 08:01 IV 05/04/21 02:59 2.5 mls/min Q12H HANNY Administration Potassium Chloride/Sodium Chloride 20 meq in 1,000 mls @ 75 mls/hr 04/08/21 07:30 04/08/21 07:53 Normal Saline W/20 Meq Kcl IV 05/08/21 07:29 75 mls/hr .[id number] HANNY Administration Ketorolac Tromethamine 15 mg 04/04/21 02:47 04/08/21 09:26 Ketorolac Tromethamine 15 Mg/Ml Vial IV 04/09/21 02:46 15 mg Q6H PRN Administration Pain Latanoprost 1 drops 04/04/21 09:00 04/08/21 08:01 Latanoprost 0.005% Op Soln 2.5 Ml Btl OP 05/04/21 08:59 1 drops DAILY HANNY Administration Miscellaneous 1 ea 04/04/21 02:59 04/07/21 02:53 Fentanyl Patch Remove & Waste N/A 05/04/21 02:58 1 ea Q3D HANNY Administration Miscellaneous 1 ea 04/04/21 08:00 04/08/21 15:18 Check Fentanyl Patch Placement N/A 05/04/21 07:59 1 ea QS HANNY Administration Ondansetron HCl 4 mg 04/04/21 02:34 04/08/21 13:46 Ondansetron Inj 2 Mg/Ml 2 Ml Vial IV 05/04/21 02:33 4 mg Q6H PRN Administration Nausea Potassium Chloride 20 meq 04/08/21 09:00 04/08/21 08:01 Potassium Chloride Crtab 20 Meq Tabcr PO 05/08/21 08:59 20 meq QAM HANNY Administration Past Medical History Medical History Abdominal carcinomatosis History of diabetes mellitus Ovarian cancer Past Surgical History Surgical History No pertinent past surgical history Social History Smoking Status: Never smoker Hx Alcohol Use: Yes Alcohol type: wine alcohol intake frequency: a few times a month Hx Substance Use: No Physical Exam Vital Signs Last Vital Signs Temp 36.7 C 04/08/21 07:57 Pulse 108 H 04/08/21 07:57 Resp 16 04/08/21 07:57 BP 149/74 H 04/08/21 07:57 Pulse Ox 95 04/08/21 07:57 Testing Laboratory Results 04/07/21 05:30 04/08/21 06:28 Hemoglobin A1c 6.0 % (4.5-5.6) H 04/07/21 05:30 Urine Color Yellow 04/05/21 02:40 Urine Appearance Clear (Clear) 04/05/21 02:40 Urine pH 6.0 (4.5-7.5) 04/05/21 02:40 Ur Specific Lilly 1.024 (1.000-1.030) 04/05/21 02:40 Urine Protein Trace (Negative) H 04/05/21 02:40 Urine Glucose (UA) Trace (Negative) H 04/05/21 02:40 Urine Ketones 4+ (Negative) H 04/05/21 02:40 Urine Nitrite Negative (Negative) 04/05/21 02:40 Ur Leukocyte Esterase Trace (Negative) H 04/05/21 02:40 Urine WBC (Auto) 10-30 /hpf (0-5) H 04/05/21 02:40 Urine RBC (Auto) 0-4 /hpf (0-4) 04/05/21 02:40 U Hyaline Cast (Auto) 1-5 /lpf (0-5) 04/05/21 02:40 U Epithel Cells (Auto) 10-20 /lpf (0-5) H 04/05/21 02:40 Urine Bacteria (Auto) Negative (Negative) 04/05/21 02:40 04/05/21 02:40 Urine Culture - Final Urine,Clean Catch More than three types of organisms present, all low counts mixed probable skin giovana. No further identifications or sensitivities to follow. Electrocardiogram Date: 04/02/21 Findings: + NSR @ (95) cannot rule out anterior infarct, unchanged from previous EKG Chest X-Ray Date: 04/06/21 R abdomen 2V w PA chest CLINICAL HISTORY: colonic obstruction, interval change COMPARISON STUDY: CT scan dated 04/03/2021 FINDINGS: Erect chest reveals no free air. There is no focal pulmonary consolidation. Erect and supine views the abdomen reveal dilated loops of large and small bowel. There is a colonic transition at the level of the splenic flexure. Transverse colon measures 7 cm. There are colonic air-fluid levels on the erect view. IMPRESSION: No significant change from the CT localizer image. Persistent small bowel and colonic distention with a splenic flexure transition zone. ACT 112: Negative or not required by law. Electronically signed by: Grey Malave M.D. 04/06/2021 12:44 PM Dictated: 04/06/21 1243Transcribed: 04/06/[address] OF THE ABDOMEN AND PELVIS WITH CONTRAST CLINICAL HISTORY: Possible bowel obstruction. Ovarian cancer. COMPARISON STUDY: CT of the abdomen and pelvis April 02, 2021. TECHNIQUE: Following IV administration of 84 mL of Optiray, axial images of the abdomen and pelvis were obtained from the lung bases to the proximal femurs. Images were reviewed in the axial, sagittal, and coronal planes. IV contrast was administered without complication. Automated exposure control was utilized for the study. A dose lowering technique was utilized adhering to the principles of ALARA. CT DOSE: 282.42 mGy.cm FINDINGS: A small left pleural effusion is again noted. No pneumatosis, free air or portal venous gas is present. Extensive peritoneal implants are noted including a complex conglomerate mass within the pelvis These are similar to prior examination. Capsular/subcapsular implants of the spleen are again noted. A 1.1 cm splenic lesion is unchanged. Bandlike hypodensity within the anterior aspect of the spleen is unchanged. No hepatic lesions are present. The adrenal glands and kidneys are unremarkable with exception of several suspected cysts. There is no hydronephrosis. There are no biliary or pancreatic ductal dilatation. Mild wall thickening of the distal ileum is noted. Moderate dilatation of the ascending colon, hepatic flexure of the colon in the transverse colon is noted with caliber change at the level of the splenic flexure. Colonic dilatation is similar to CT of April 02, 2011. The findings represent chronic obstruction due to peritoneal implants. No suspicious osseous lesions are present. Major vasculature is patent. IMPRESSION: 1. Findings suggestive of a persistent colonic obstruction with transition point within the splenic flexure due to peritoneal implants. Moderate colonic dilatation. 2. No significant change in extensive peritoneal carcinomatosis. 3. No change in a suspected small splenic infarct. ACT 112: Negative or not required by law. Electronically signed by: Darin Lafleur M.D. 04/04/2021 8:25 AM Dictated: 04/04/2110Transcribed: 04/04/21809
--- NOTE | 2021-04-08 22:19 | Hospitalist Progress Note ---
Date of Service April 08, 2021 Assessment & Plan (1) Bowel obstruction: admission CT with colonic obstruction with transition point at the splenic flexure. similar findings to CT on 04/02/21. peritoneal metastatic implant from her carcinomatosis/ovarian cancer is the cause of her large bowel obstruction. patient clinically worse last 48 hours with severe drop off in flatus passage, no spontaneous stool passage, worsening abd distension. continues NPO status, IVF, IV pain meds, etc. spoke with Dr Yenny Morrison at [facility] this AM re: possible transfer unfortunately Dr Morrison and her surgical team have kindly declined her transfer to [facility] in [facility] declined her transfer this weekend patient has declined looking at [facility] or the [facility] system for possible transfer she & have decided to have her surgery here with Dr Arenas from the surgical team I made Dr Arenas aware of her final decision plan - OR tomorrow for diverting colostomy with Dr Arenas continue NPO status, IV fluids, etc labs in am including PT/INR (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 s/p paclitaxol x 1 round earlier this month. was scheduled for 2nd round of chemotherapy on 04/04 but placed on hold due to hospitalization. see above in "bowel obstruction". (3) Ovarian cancer: See above mets to peritoneal cavity, spleen, etc. (4) Abdominal pain: ongoing 2nd to carcinomatosis and colonic obstruction. Continue fentanyl patch. Continue IV Toradol prn. Continue dilaudid IV prn. (5) Hyponatremia: Sodium 126-128 on 04/02 and 04/03, respectively. Serum osmolality 274, urine osmolality 642. 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 Has element of volume contraction as Na improved with isotonic fluids. Cont NaCL supplementation. Cont isotonic IV fluids cautiously. BMP in am. (6) Hypokalemia: repleted and resolved. cont IV KCL in basal fluids. can place PO K on hold. (7) History of diabetes mellitus: a1c 6% c/w pre-DM only. control has been satisfactory. (8) DVT prophylaxis: heparin 5000 TID total time today 45 min including phone call with Dr Morrison at [facility] in [facility], multiple calls with Dr Arenas, phone call with , and care coordination Admission and Anticipated Discharge Date Admission Date: April 04, 2021 Subjective during rounds patient stated she had uncomfortable night could not sleep, abdomen painful and bloated, etc. she has not vomited today but has nausea passing little flatus abdomen is worse today from distension standpoint during the visit I had patient call to conference him in explained that I had spoken with Dr Yenny Morrison at [facility] in [facility] this am Dr Morrison kindly declined the transfer I explained to the patient and her that her obstruction requires urgent intervention and that [facility] typically does not take patients in transfer to urgent surgical needs like this Dr Morrison highly encouraged Ms Moran to get her surgery done locally and quickly following this discussion I offered [facility] or even [facility] as options for transfer both she and her declined, stating she will have her surgery - diverting colostomy to bypass the obstruction - here at [facility] I informed Dr Arenas of her decision after this visit and he came to go over risks/benefits sometime in the afternoon she will have surgery tomorrow Review of Systems Constitutional: no fever and no chills Respiratory: no cough and no dyspnea Cardiovascular: no chest pain Gastrointestinal: + abdominal pain, + bloating and + nausea; no excessive flatulence and no blood in stools Psychiatric: + abnormal sleep pattern and + anxiety Physical Exam Constitutional: + thin and + altered mental status (Slightly confused due to recent xanax and pain meds); no acute distress looks overall worse today ENMT: external ear and nose normal, oropharynx normal Cardiovascular: Rate/Rhythm: regular rhythm and + tachycardic Heart Sounds: normal S1 and normal S2; no murmur Vessels: posterior tibial pulses present and dorsalis pedis pulses present; no JVD Extremities: no edema Gastrointestinal (Abdomen): Inspection/Auscultation: + abdomen distended (worse today) and + hypoactive bowel sounds Percussion/Palpation: + abdomen tender (lower quadrants once again); no guarding, abdomen not rigid, no hepatosplenomegaly and no hernia Skin: no rashes, warm and dry Psychiatric: Orientation: alert, oriented to person and oriented to place Results & Data Results & Data ([facility]) Vital Signs (Past 12 Hours) Vital Signs Temp Pulse Resp BP Pulse Ox 04/08/21 17:12 37.2 C 126 H 16 159/89 H 93 Laboratory Results Laboratory Results - last 24 hr 04/07/21 04/08/21 05:30 06:28 Sodium 136 Potassium 4.2 Chloride 102 Carbon Dioxide 28 Anion Gap 6.0 BUN 18 D Creatinine 0.62 Est Cr Clr Drug Dosing 67.4 Est GFR ( Amer) 108.9 Est GFR (Non-Af Amer) 94.0 BUN/Creatinine Ratio 28.8 H Glucose 197 H Estimat Average Glucose 126 Hemoglobin A1c 6.0 H Calcium 9.0 PG Care Time/CCT Total # of Minutes Spent Total Time Spent with Patient: Total time spent is greater than 50% in coordination of care (as documented) at patient's floor/unit and/or counseling patient: Coding Level of Care Code 47674 Subseq Hosp Care Lvl 3 Diagnoses Bowel obstruction K56.600 Intestinal obstruction extent: partial Intestinal obstruction type: unspecified Peritoneal carcinomatosis C78.6 Ovarian cancer C56.9 Laterality: unspecified laterality Abdominal pain R10.84 Abdominal location: generalized Hyponatremia E87.1 Hypokalemia E87.6 History of diabetes mellitus Z86.39 DVT prophylaxis Z29.9 (1) Ovarian cancer Laterality: unspecified laterality Qualified Code(s): C56.9 - Malignant neoplasm of unspecified ovary (2) Bowel obstruction Intestinal obstruction extent: partial Intestinal obstruction type: unspecified Qualified Code(s): K56.600 - Partial intestinal obstruction, unspecified as to cause (3) Abdominal pain Abdominal location: generalized Qualified Code(s): R10.84 - Generalized abdominal pain
[2021-04-09] MEDS ORDERED: cefOXitin 2,000 MG in DEXTROSE 5% 50 ML IV ONE (07:00)
[2021-04-09 07:43] LABS: Hematocrit (blood only) 34.4 % (37-47); Hemoglobin 11.9 g/dL (12.0-16.0); Mean Corpuscular Hemoglobin 29.8 pg (25-34); Mean Corpuscular Hgb Conc 34.6 g/dL (32-36); Mean Corpuscular Volume 86.2 fL (80-100); Mean Platelet Volume 8.4 fL (7.4-10.4); Platelet Count 344 K/uL (130-400); RDW Coefficient of Variation 13.6 % (11.5-14.5); RDW Standard Deviation 42.7 fL (36.4-46.3); Red Blood Count 3.99 M/uL (4.2-5.4); White Blood Count 5.34 K/uL (4.8-10.8)
[2021-04-09] MEDS: CHECK fentaNYL PATCH PLACEMENT SCH ×3 (07:49→23:16)
[2021-04-09] MEDS: FAMOTIDINE 20 MG in SYRINGE 3 ML IV SCH ×2 (07:51→19:30)
[2021-04-09] MEDS: LATANOPROST 0.005% OP SOLN 2.5 ML BTL OP SCH (07:51)
[2021-04-09 07:57] LABS: INR 1.1 (0.9-1.1); Prothrombin Time 11.1 Seconds (9.0-12.0)
[2021-04-09 08:11] LABS: BUN Creatinine Ratio 19.7 (10-20); Calcium 8.9 mg/dl (8.5-10.1); Creatinine Clr Calc Pharmacy 39.8 ml/min; Est GFR (African American) 64.1 ml/min; Est GFR (Non-African American) 55.3 ml/min; Potassium 3.7 mmol/L (3.5-5.1)
--- NOTE | 2021-04-09 09:46 | History & Physical Bridge Note ---
Date of Service April 09, 2021 History & Physical Bridge Note I have examined the patient, reviewed the History & Physical and in the interval since the performance of the History & Physical I have noted the following changes of clinical significance: no changes noted
--- NOTE | 2021-04-09 10:12 | Surgery Progress Note ---
Date of Service April 09, 2021 Assessment & Plan (1) Bowel obstruction: (2) Ovarian cancer: -Patient had a BM this morning with relief of pain and now desires to cancel her surgery today -I saw the patient and explained to her that she will likely have return of her symptoms due to her obstruction being due to her extensive carcinomatosis and my recommendation is still to proceed with a diverting colostomy to avoid any further obstructive symptoms so she can resume her chemotherapy to treat what is causing her obstruction. -She adamantly refused the surgery even with this information being presented to her -I discussed this with the hospitalist taking care of the patient -Ok to trial clear liquids -I am happy to be available if needed Admission and Anticipated Discharge Date Admission Date: April 04, 2021 Subjective Pt seen and examined. Had a BM this morning. States her pain is nearly gone. Afebrile. No N/V. Review of Systems Review of Systems: All systems reviewed & are unremarkable except as noted in Subjective Physical Exam Constitutional: WD/WN, vitals as above Gastrointestinal (Abdomen): Inspection/Auscultation: + abdomen distended Percussion/Palpation: + abdomen tender (mild generalized) and abdomen soft; no guarding and abdomen not rigid Musculoskeletal: no cyanosis or clubbing, extremities motor strength 5/5 Skin: no rashes, warm and dry Results & Data ([facility]) Vital Signs (Past 12 Hours) Vital Signs Temp Pulse Pulse Resp BP BP Pulse Ox 04/09/21 07:31 36.8 C 106 H 16 158/84 H 93 04/08/21 22:59 115 H 157/81 H 04/08/21 22:45 37.1 C 115 H 14 175/94 H 97 PG Care Time/CCT Total # of Minutes Spent Total Time Spent with Patient: Total time spent is greater than 50% in coordination of care (as documented) at patient's floor/unit and/or counseling patient: Coding Level of Care Code 70335 Subseq Hosp Care Lvl 1 Diagnoses Bowel obstruction K56.600 Intestinal obstruction type: unspecified Intestinal obstruction extent: partial Ovarian cancer C56.9 Laterality: unspecified laterality (1) Bowel obstruction Intestinal obstruction type: unspecified Intestinal obstruction extent: partial Qualified Code(s): K56.600 - Partial intestinal obstruction, unspecified as to cause (2) Ovarian cancer Laterality: unspecified laterality Qualified Code(s): C56.9 - Malignant neoplasm of unspecified ovary
[2021-04-09] MEDS: NSS + 20MEQ KCL 20 MEQ/1,000 ML BAG IV SCH ×2 (11:01→23:16)
[2021-04-09] MEDS: HEPARIN SOD 5,000 UNIT/0.5 ML VIAL SQ SCH ×2 (16:48→23:16)
[2021-04-09] MEDS: HYDROmorphone INJ 0.5 MG/0.5 ML SYR IV PRN ×2 (16:55→19:30)
[2021-04-09] MEDS: ONDANSETRON INJ 2 MG/ML 2 ML VIAL IV PRN (19:30)
--- NOTE | 2021-04-09 22:02 | Hospitalist Progress Note ---
Date of Service April 09, 2021 Assessment & Plan (1) Bowel obstruction: admission CT with colonic obstruction with transition point at the splenic flexure. similar findings to CT on 04/02/21. peritoneal metastatic implant from her carcinomatosis/ovarian cancer is the cause of her large bowel obstruction. spoke with Dr Yenny Morrison at [facility] on 04/08/21 re: possible transfer unfortunately Dr Morrison and her surgical team declined her transfer to [place] in [facility] declined her transfer this weekend patient had declined looking at [facility] or the [facility] system for possible transfer she ultimately decided to have her diverting transverse colostomy performed here by Dr Arenas, but then changed her mind this am after passage of a bowel movement and refused the surgery she spent the day weighing her options for care was involved in this process as well she has decided to NOT pursue ANY treatment of ANY kind - no surgery, no additional chemo, etc will obtain formal palliative care consultation in am support given to patient and her - latter by phone. He requests ability to come in tomorrow am to be able to speak to the medical team at same time as his . Will try to arrange this given the circumstances. can allow clears but patient thus far not tolerating them in light of ongoing obstruction. 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 s/p paclitaxol x 1 round earlier this month. was scheduled for 2nd round of chemotherapy on 04/04 but did not receive due to this hospitalization. see above in "bowel obstruction". (3) Ovarian cancer: See above mets to peritoneal cavity, spleen, etc. (4) Abdominal pain: ongoing 2nd to carcinomatosis and colonic obstruction. Continue fentanyl patch. Continue IV Toradol prn. Continue dilaudid IV prn. (5) Hyponatremia: Sodium 126-128 on 04/02 and 04/03, respectively. Serum osmolality 274, urine osmolality 642. 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 Has element of volume contraction as Na improved with isotonic fluids. Cont isotonic IV fluids. BMP in am. (6) Hypokalemia: repleted and resolved. cont IV KCL in basal fluids. stop oral K supplement. (7) History of diabetes mellitus: a1c 6% c/w pre-DM only. control has been satisfactory. and not eating thus BSGs will be normal. (8) DVT prophylaxis: heparin 5000 TID total care time today 40 minutes - 2 bedside visits, discussion w/ surgery, discussion w/ , etc. Admission and Anticipated Discharge Date Admission Date: April 04, 2021 Subjective early this am i heard from Dr Arenas from gen surg that patient had declined to have surgery. apparently she had had a bowel movement this morning and transiently felt better. she then told Dr Arenas she was not going to have the colostomy formation surgery. clear liquid tray then ordered by surgery. soon after I performed bedside rounds. patient was having burping/belching, distension, pain, and nausea. no vomiting. the temporary relief of her GI symptoms following the aforementioned bowel movement was short-lived. during my visit I encouraged her to speak with her about her options. I re-visited Mrs Moran later in the day and she told me she simply wanted to stay comfortable. she stated she wanted to stop cancer treatment, skip surgery, and remain comfortable / treat symptoms. called and spoke with her [place] - he is supportive of her wishes. he confirmed that she didn't want any further aggressive care. I mentioned getting pallliative care involved tomorrow am. Review of Systems Constitutional: + fatigue and + anorexia; no fever and no chills Respiratory: no cough, no dyspnea and no dyspnea on exertion Cardiovascular: no chest pain Gastrointestinal: + abdominal pain, + belching, + bloating, + nausea and + vomiting little flatus passage Physical Exam Constitutional: + thin and + altered mental status; no acute distress ENMT: external ear and nose normal, oropharynx normal Respiratory: normal respiratory effort, lungs clear to auscultation Auscultation: + diminished lung sounds (Bases) Cardiovascular: Rate/Rhythm: regular rhythm and + tachycardic Heart Sounds: normal S1 and normal S2; no murmur Vessels: posterior tibial pulses present and dorsalis pedis pulses present; no JVD Extremities: no edema Gastrointestinal (Abdomen): Inspection/Auscultation: + abdomen distended (worse today) and + hypoactive bowel sounds Percussion/Palpation: + abdomen tender (lower quadrants once again); no guarding, abdomen not rigid, no hepatosplenomegaly and no hernia Skin: no rashes, warm and dry Psychiatric: Orientation: alert, oriented to person and oriented to place Results & Data Results & Data ([place]) Vital Signs (Past 12 Hours) Vital Signs Temp Pulse Resp BP Pulse Ox 04/09/21 16:35 36.6 C 106 H 16 163/89 H 95 Laboratory Results Laboratory Results - last 24 hr 04/09/21 04/09/21 04/09/21 07:25 07:25 07:25 WBC 5.34 RBC 3.99 L Hgb 11.9 L Hct 34.4 L MCV 86.2 MCH 29.8 MCHC 34.6 RDW Std Deviation 42.7 RDW Coeff of Huy 13.6 Plt Count 344 MPV 8.4 PT 11.1 INR 1.1 Sodium 136 Potassium 3.7 Chloride 102 Carbon Dioxide 25 Anion Gap 9.0 BUN 21 H Creatinine 1.05 Est Cr Clr Drug Dosing 39.8 Est GFR ( Amer) 64.1 Est GFR (Non-Af Amer) 55.3 BUN/Creatinine Ratio 19.7 Glucose 174 H Calcium 8.9 Magnesium 2.0 PG Care Time/CCT Total # of Minutes Spent Total Time Spent with Patient: Total time spent is greater than 50% in coordination of care (as documented) at patient's floor/unit and/or counseling patient: Coding Level of Care Code 60245 Subseq Hosp Care Lvl 3 Diagnoses Bowel obstruction K56.600 Intestinal obstruction extent: partial Intestinal obstruction type: unspecified Peritoneal carcinomatosis C78.6 Ovarian cancer C56.9 Laterality: unspecified laterality Abdominal pain R10.84 Abdominal location: generalized Hyponatremia E87.1 Hypokalemia E87.6 History of diabetes mellitus Z86.39 DVT prophylaxis Z29.9 (1) Ovarian cancer Laterality: unspecified laterality Qualified Code(s): C56.9 - Malignant neoplasm of unspecified ovary (2) Bowel obstruction Intestinal obstruction extent: partial Intestinal obstruction type: unspecified Qualified Code(s): K56.600 - Partial intestinal obstruction, unspecified as to cause (3) Abdominal pain Abdominal location: generalized Qualified Code(s): R10.84 - Generalized abdominal pain
[2021-04-10] MEDS: fentaNYL 25 MCG/HR TDSY TD SCH (04:04)
[2021-04-10] MEDS: HYDROmorphone INJ 0.5 MG/0.5 ML SYR IV PRN ×4 (04:04→17:04)
[2021-04-10] MEDS: ONDANSETRON INJ 2 MG/ML 2 ML VIAL IV PRN (04:05)
[2021-04-10 06:58] LABS: BUN Creatinine Ratio 42.7 (10-20); Calcium 8.2 mg/dl (8.5-10.1); Est GFR (African American) 130.2 ml/min; Est GFR (Non-African American) 112.4 ml/min; Potassium 3.5 mmol/L (3.5-5.1)
[2021-04-10] MEDS: HEPARIN SOD 5,000 UNIT/0.5 ML VIAL SQ SCH ×3 (09:11→21:31)
[2021-04-10] MEDS: CHECK fentaNYL PATCH PLACEMENT SCH ×2 (09:11→15:49)
[2021-04-10] MEDS: FAMOTIDINE 20 MG in SYRINGE 3 ML IV SCH ×2 (09:12→21:17)
[2021-04-10] MEDS: LATANOPROST 0.005% OP SOLN 2.5 ML BTL OP SCH (09:12)
[2021-04-10] MEDS: NSS + 20MEQ KCL 20 MEQ/1,000 ML BAG IV SCH (15:48)
--- NOTE | 2021-04-10 15:53 | Palliative Care Consultation ---
Date of Consultation April 10, 2021 Assessment & Plan (1) Palliative care encounter: I met with Mrs. Moran and her at bedside with Dr. Jane. We discussed what to expect with bowel obstruction and continued conservative treatment. Unfortunately, she would be likely to have persistent nausea and pain and would not be able to tolerate po intake or have a means of providing nutrition. Palliative colostomy, while uncomfortable initially postop, would allow her to eat as tolerated and have a better quality of life. She has been assimilating information and considering her options. Regardless of this choice, her overall prognosis remains poor and she understands this. She has d ecided at this time to proceed with palliative diverting colostomy. Palliative care will follow. (2) Bowel obstruction: Intestinal obstruction type: unspecified Intestinal obstruction extent: partial Qualified Code(s): K56.600 - Partial intestinal obstruction, unspecified as to cause (3) Abdominal pain: Continue fentanyl at current dose with prn hydromorphone. If she is having surgery, she will need increased IV opioid dosing post operatively though this will not likely reflect the long acting opioid dose needed to control her baseline pain. Abdominal location: epigastric Qualified Code(s): R10.13 - Epigastric pain (4) Ovarian cancer: Laterality: unspecified laterality Qualified Code(s): C56.9 - Malignant neoplasm of unspecified ovary (5) Carcinoma of peritoneum: History of Present Illness Reason for Consultation: goals of care Requesting Physician: Dr. Jane Attending Physician: Leon Jane History of Present Illness 65 yo lady who was diagnosed last month with metastatic ovarian cancer and peritoneal carcinomatosis. She had presented at previous admission with several month history of abdominal pain, abnormal CT and elevated CA 125. She was seen by Dr. Morel and started on paclitaxol for one dose. She is no admitted with colonic obstruction in the area of the splenic flexure. She continues to have persistent abdominal distension, nausea and discomfort despite conservative treatment. She has been eating bites of jello and sips of fluids but is not able to tolerate more than a bite or two. She has a fentanyl patch for pain and has been getting IV hydromorphone as needed and has had 2.5 mg total dosing in the last 24 hours. She had been considering palliative colostomy but decided against that on the day of surgery. We have been consulted to assist with goals of care. Allergies Allergy/AdvReac Type Severity Reaction Status Date / Time Sulfa (Sulfonamide Allergy Mild Rash Verified 04/03/21 23:57 Antibiotics) hydrocodone [From Vicodin] AdvReac Mild Vomiting Verified 04/03/21 23:57 Home Medications Medication Instructions Recorded Confirmed Type cholecalciferol (vitamin D3) 125 mcg PO DAILY 02/28/21 04/03/21 History [Vitamin D3] latanoprost [Xalatan] 1 drp OPHTHALMIC (EYE) DAILY 02/28/21 04/03/21 History tramadol 50 mg PO Q6H PRN #20 tab 03/01/21 04/03/21 Rx dexamethasone [Decadron] 20 mg PO USEASDIRECTD 04/02/21 04/03/21 History olanzapine [Zyprexa] 2.5 mg PO HS 04/02/21 04/03/21 History ondansetron HCl 8 mg PO Q8H PRN 04/02/21 04/03/21 History oxycodone [Roxicodone] See Rx Instructions .ROUTE .COMPLEX 04/02/21 04/03/21 History prochlorperazine maleate 10 mg PO Q6H PRN 04/02/21 04/03/21 History [Compazine] sodium chloride 2,000 mg PO HS 04/02/21 04/03/21 History fentanyl 1 patch TRANSDERMAL Q72H #5 ea 04/03/21 04/03/21 Rx Patient History Medical History Abdominal carcinomatosis History of diabetes mellitus Ovarian cancer Surgical History No pertinent past surgical history Social History Smoking Status: Never smoker Second Hand Exposure: No; Hx Alcohol Use: Yes Alcohol type: wine Hx Substance Use: No Preferred Language: Hungarian Communication Ability: Effective Engineer Assistant Required: No Beliefs That Will Affect Care: None Current Living Situation: Spouse Other Information That Helps Us Care for You: No Feels Safe at Home: Yes Safety Concerns: Feels Safe At This Time Assistive Devices: None Review of Systems Review of Systems: Burns Symptom Assessment Score Pain 2/3 Nausea 2/3 Anorexia 3/3 Drowsiness 0/3 Palliative Performance Score 40% Physical Exam Constitutional: + ill appearing ENMT: Mouth: + dry oral mucous membranes Respiratory: normal respiratory effort; no labored breathing Gastrointestinal (Abdomen): distended, tympanic, tender to palpation Neurologic: awake; not confused Results & Data ([facility]) Vital Signs (Past 12 Hours) Vital Signs Temp Pulse Resp BP Pulse Ox 04/10/21 08:27 98.1 F 103 H 16 164/92 H 93 PG Care Time/CCT Total # of Minutes Spent Total Time Spent with Patient: Total time spent is greater than 50% in coordination of care (as documented) at patient's floor/unit and/or counseling patient: total time spent 60 minutes with more than 50% of time spent on patient and family education and support, symptom management, prognosis. Coding Level of Care Code 20155 Inpt Consult Level 3 Diagnoses Palliative care encounter Z51.5 Bowel obstruction K56.600 Intestinal obstruction type: unspecified Intestinal obstruction extent: partial Abdominal pain R10.13 Abdominal location: epigastric Ovarian cancer C56.9 Laterality: unspecified laterality Carcinoma of peritoneum C48.2
--- NOTE | 2021-04-10 20:49 | Hospitalist Progress Note ---
Date of Service April 10, 2021 Assessment & Plan (1) Bowel obstruction: admission CT with colonic obstruction with transition point at the splenic flexure. peritoneal metastatic implant from her carcinomatosis/ovarian cancer is the cause of her large bowel obstruction. spoke with Dr Yenny Morrison at [facility] on 04/08/21 re: possible transfer to [facility] for intervention unfortunately Dr Morrison and her surgical team declined her transfer to [facility] in [facility] declined her transfer this past weekend patient had declined looking at [facility] or the [facility] system for possible transfer she ultimately decided to have her diverting transverse colostomy performed here by Dr Arenas, but then changed her mind yesterday am after passage of a bowel movement and refused the surgery; last evening she and reported she would not have ANY surgery or chemo, just comfort care THIS AM - Dr Sorensen from palliative care and I met with pt & at bedside 30 minute conversation re: options see HPI for details patient has changed her mind - she is now wanting to pursue surgery with Dr Arenas to perform diverting transverse colostomy keep NPO IVF anti-emetics pain meds Dr Arenas made aware of the above likely to the OR on 04/[address] Arenas's and Dr Sorensen's consultations (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 s/p paclitaxol x 1 round earlier this month. was scheduled for 2nd round of chemotherapy on 04/04 but did not receive due to this hospitalization. see above in "bowel obstruction". (3) Ovarian cancer: See above mets to peritoneal cavity, spleen, etc. (4) Abdominal pain: ongoing 2nd to carcinomatosis and colonic obstruction. Continue fentanyl patch. Continue IV Toradol prn. Continue dilaudid IV prn. (5) Hyponatremia: Sodium 126-128 on 04/02 and 04/03, respectively. Serum osmolality 274, urine osmolality 642. 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 Has element of volume contraction as well given improvement in Na level with isotonic fluids. Na 133 today. Cont isotonic IV fluids given her NPO status, diarrhea, etc. (6) Hypokalemia: repleted and resolved. cont IV KCL in basal fluids. (7) History of diabetes mellitus: a1c 6% c/w pre-DM only. control has been satisfactory. (8) DVT prophylaxis: heparin 5000 TID total care time today 40 minutes, >50% of which was spent counseling the patient & her Admission and Anticipated Discharge Date Admission Date: April 04, [address] Ariana Sorensen met with patient & her this am to discuss goals of care and what her desires are moving forward. prior to the discussion she mentioned she feels "miserable" -- ongoing burping/belching, ongoing abd distension, some flatus and 1 loose stool this am - but still feels poorly. cannot take any PO - causes immediate nausea. ongoing mild abdominal pain. she admits to feeling anxious over the last few days. 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 she feels like she hasn't had all the right information this week re: her current status and the reasons for why the diverting colostomy is necessary. she still brings up the fact that she hasn't been pleased overall with her care at [facility], [facility], etc. after acknowledging her feelings/validating her feelings we refocused the conversation to the bowel obstruction. Dr Sorensen and I told her that without a diverting colostomy she will continue to suffer / be miserable with ongoing GI symptoms. she would be unable to eat/drink. she would have ongoing pain. we both advised the colostomy procedure telling her that this is a necessary surgery to relieve her pain/suffering from the obstruction. we did both make it clear that this doens't fix/cure the cancer. we also told her she would have post-op pain but we would control that as best as possible. again told pt and her that transfer to another facility is not feasible nor advised given the urgency of her situation. following the above conversation she changed her mind and told us she DID want to proceed forward with the surgery. she also mentioned she probably would want hospice at the conclusion of this hospital stay. She doesn't think she could tolerate chemo again. I informed Dr Arenas by phone (voicemail) of pt's decision to move forward with surgical intervention. Review of Systems Constitutional: + fatigue and + anorexia; no fever and no chills Respiratory: no cough, no dyspnea and no dyspnea on exertion Cardiovascular: no chest pain Gastrointestinal: + abdominal pain, + belching, + bloating, + nausea, + vomiting and + diarrhea/loose stools; no blood in stools Psychiatric: + abnormal sleep pattern and + anxiety Physical Exam Constitutional: + ill appearing and + thin; no acute distress and no altered mental status ENMT: external ear and nose normal, oropharynx normal Respiratory: normal respiratory effort, lungs clear to auscultation Auscultation: + diminished lung sounds (Bases) Cardiovascular: Rate/Rhythm: regular rhythm and + tachycardic Heart Sounds: normal S1 and normal S2; no murmur Vessels: posterior tibial pulses present and dorsalis pedis pulses present; no JVD Extremities: no edema Gastrointestinal (Abdomen): Inspection/Auscultation: + abdomen distended (similar to 04/09 exam) and + hypoactive bowel sounds Percussion/Palpation: + abdomen tender (lower quadrants and central ); no guarding, abdomen not rigid, no hepatosplenomegaly and no hernia Skin: no rashes, warm and dry Psychiatric: Orientation: alert, oriented to person, oriented to place and oriented to time Results & Data Results & Data ([facility]) Vital Signs (Past 12 Hours) Vital Signs Temp Pulse Resp BP Pulse Ox 04/10/21 15:59 36.6 C 98 H 18 172/93 H 94 Laboratory Results Laboratory Results - last 24 hr 04/10/21 05:58 Sodium 133 L Potassium 3.5 Chloride 99 Carbon Dioxide 27 Anion Gap 7.0 BUN 15 Creatinine 0.36 L D Est Cr Clr Drug Dosing 116.0 Est GFR ( Amer) 130.2 Est GFR (Non-Af Amer) 112.4 BUN/Creatinine Ratio 42.7 H Glucose 133 H Calcium 8.2 L PG Care Time/CCT Total # of Minutes Spent Total Time Spent with Patient: Total time spent is greater than 50% in coordination of care (as documented) at patient's floor/unit and/or counseling patient: Coding Level of Care Code 89717 Subseq Hosp Care Lvl 3 Diagnoses Bowel obstruction K56.600 Intestinal obstruction extent: partial Intestinal obstruction type: unspecified Peritoneal carcinomatosis C78.6 Ovarian cancer C56.9 Laterality: unspecified laterality Abdominal pain R10.84 Abdominal location: generalized Hyponatremia E87.1 Hypokalemia E87.6 History of diabetes mellitus Z86.39 DVT prophylaxis Z29.9 (1) Ovarian cancer Laterality: unspecified laterality Qualified Code(s): C56.9 - Malignant neoplasm of unspecified ovary (2) Bowel obstruction Intestinal obstruction extent: partial Intestinal obstruction type: unspecified Qualified Code(s): K56.600 - Partial intestinal obstruction, unspecified as to cause (3) Abdominal pain Abdominal location: generalized Qualified Code(s): R10.84 - Generalized abdominal pain
[2021-04-11] MEDS: CHECK fentaNYL PATCH PLACEMENT SCH ×4 (00:41→23:06)
[2021-04-11] MEDS: NSS + 20MEQ KCL 20 MEQ/1,000 ML BAG IV SCH ×2 (06:08→17:49)
[2021-04-11] MEDS: LATANOPROST 0.005% OP SOLN 2.5 ML BTL OP SCH (08:11)
[2021-04-11] MEDS: HEPARIN SOD 5,000 UNIT/0.5 ML VIAL SQ SCH ×3 (08:13→21:29)
[2021-04-11] MEDS: FAMOTIDINE 20 MG in SYRINGE 3 ML IV SCH ×3 (08:13→21:41)
[2021-04-11] MEDS: HYDROmorphone INJ 0.5 MG/0.5 ML SYR IV PRN ×2 (14:34→17:57)
[2021-04-11] MEDS: ONDANSETRON INJ 2 MG/ML 2 ML VIAL IV PRN (18:05)
[2021-04-11] MEDS ORDERED: HYDROmorphone INJ 0.5 MG/0.5 ML SYR IV PRN (19:00)
[2021-04-11] MEDS ORDERED: NALOXONE HCL 0.4 MG/1 ML VIAL/CARP IV PRN (19:44)
--- NOTE | 2021-04-11 20:53 | Hospitalist Progress Note ---
Date of Service April 11, 2021 Assessment & Plan (1) Bowel obstruction: admission CT with colonic obstruction with transition point at the splenic flexure. peritoneal metastatic implant from her carcinomatosis/ovarian cancer is the cause of her large bowel obstruction. minimal flatus, ongoing distension, GI intolerance to scant PO intake - thus ongoing obstruction. spoke with Dr Yenny Morrison at [facility] on 04/08/21 re: possible transfer to [facility] for intervention patient had had a telehealth consultation with her in February [address] Morrison and her surgical team declined her transfer to [facility] in [facility] declined her transfer this past weekend patient had declined looking at [facility] or the [facility] system for possible transfer for surgical intervention she ultimately decided to have her diverting transverse colostomy performed here by Dr Arenas, but then changed her mind AM of 04/09 04/10 - Dr Sorensen from palliative care and I met with pt & at bedside options for care discussed; encouraged patient to reconsider surgery given her refractory GI symptoms & pain from ongoing colonic obstruction patient ultimately changed her mind - wants to proceed with diverting transverse colostomy; Dr Arenas to perform patient is scheduled for OR TOMORROW keep NPO IVF anti-emetics change prn IV dilaudid to plastic cutter dilaudid 0.1mg demand dose to start lock-out q20min no basal as patient is on fentanyl patch q72h adjust plastic cutter as needed appreciate Dr Arenas's and Dr Sorensen's consultations (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 s/p paclitaxol x 1 round earlier this month. was scheduled for 2nd round of chemotherapy on 04/04 but did not receive due to this hospitalization. see above in "bowel obstruction". (3) Ovarian cancer: See above mets to peritoneal cavity, spleen, etc. (4) Abdominal pain: ongoing 2nd to carcinomatosis and colonic obstruction. Continue fentanyl patch. Continue IV Toradol prn. Continue dilaudid but change to WELDER FITTER GAS as above. (5) Hyponatremia: Sodium 126-128 on 04/02 and 04/03, respectively. Serum osmolality 274, urine osmolality 642. 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 Has element of volume contraction as well given improvement in Na level with isotonic fluids. Cont isotonic IV fluids given her NPO status, diarrhea, etc. repeat bmp am. (6) Hypokalemia: repleted and resolved. cont IV KCL in basal fluids. (7) History of diabetes mellitus: a1c 6% c/w pre-DM only. control has been satisfactory. (8) Elevated blood pressure reading without diagnosis of hypertension: suspect 2nd to pain, anxiety, irritability, etc follow (9) Anxiety: xanax prn (10) Belchinnd to obstruction having heartburn symptoms despite pepcid IV add carafate liquid 1gm QID (11) DVT prophylaxis: heparin 5000 TID left message for Wilton on his cellphone voicemail this evening Admission and Anticipated Discharge Date Admission Date: April 04, 2021 Subjective saw patient late afternoon she was VERY irritable/irate I asked what was bothering her and she replied - "nothing is happening" she stated further "every day nothing is happening" (referring to NPO status, ongoing obstruction, etc) she is upset that her surgery didn't happen today she went on further stating she has been disenchanted with most of her care her abdominal pain continues getting the prn IV dilaudid fairly regularly I offered her WELDER FITTER GAS dilaudid so she wouldn't have to wait for pain meds - she would be in control of her pain relief - she agreed to WELDER FITTER GAS she also was upset that she "wasn't receiving her pepcid" -- but I reassured her she was getting it q12h scheduled despite the pepcid she continues with burping/belching Review of Systems Respiratory: no cough and no dyspnea Cardiovascular: no chest pain Gastrointestinal: + abdominal pain, + belching, + bloating and + nausea; no vomiting minimal flatus Physical Exam Constitutional: + ill appearing and + thin; no acute distress and no altered mental status ENMT: external ear and nose normal, oropharynx normal Respiratory: normal respiratory effort, lungs clear to auscultation Auscultation: + diminished lung sounds (Bases) Cardiovascular: RRR, no murmur, no edema Rate/Rhythm: regular rhythm and + tachycardic Heart Sounds: normal S1 and normal S2; no murmur Vessels: posterior tibial pulses present and dorsalis pedis pulses present; no JVD Extremities: + edema (Trace-1+ b/l ) Gastrointestinal (Abdomen): Inspection/Auscultation: + abdomen distended and + hypoactive bowel sounds Percussion/Palpation: + abdomen tender (Generalized ); no guarding, abdomen not rigid, no hepatosplenomegaly and no hernia Skin: no rashes, warm and dry Psychiatric: Orientation: alert, oriented to person, oriented to place and oriented to time Affect: + irritable affect Results & Data Results & Data ([facility]) Vital Signs (Past 12 Hours) Vital Signs Temp Pulse Resp BP Pulse Ox 04/11/21 20:00 36.7 C 152 H 16 175/95 H 97 PG Care Time/CCT Total # of Minutes Spent Total Time Spent with Patient: Total time spent is greater than 50% in coordination of care (as documented) at patient's floor/unit and/or counseling patient: Coding Level of Care Code 69846 Subseq Hosp Care Lvl 2 Diagnoses Bowel obstruction K56.600 Intestinal obstruction extent: partial Intestinal obstruction type: unspecified Peritoneal carcinomatosis C78.6 Ovarian cancer C56.9 Laterality: unspecified laterality Abdominal pain R10.84 Abdominal location: generalized Hyponatremia E87.1 Hypokalemia E87.6 History of diabetes mellitus Z86.39 Elevated blood pressure reading without diagnosis of hypertension R03.0 Anxiety F41.9 Belching R14.2 DVT prophylaxis Z29.9 (1) Ovarian cancer Laterality: unspecified laterality Qualified Code(s): C56.9 - Malignant neoplasm of unspecified ovary (2) Bowel obstruction Intestinal obstruction extent: partial Intestinal obstruction type: unspecified Qualified Code(s): K56.600 - Partial intestinal obstruction, unspecified as to cause (3) Abdominal pain Abdominal location: generalized Qualified Code(s): R10.84 - Generalized abdominal pain
[2021-04-11] MEDS: SUCRALFATE 1 GM/10 ML UDC PO SCH ×2 (21:30→21:41)
[2021-04-11] MEDS: SODIUM CHLORIDE 0.9% 1000ML 1,000 ML IV SCH (21:45)
[2021-04-11] MEDS: HYDROmorphone PCA 30 MG/30 ML IV PRN (22:16)
[2021-04-12 05:53] LABS: Hematocrit (blood only) 33.6 % (37-47); Hemoglobin 11.8 g/dL (12.0-16.0); Mean Corpuscular Hemoglobin 29.9 pg (25-34); Mean Corpuscular Hgb Conc 35.1 g/dL (32-36); Mean Corpuscular Volume 85.1 fL (80-100); Mean Platelet Volume 8.3 fL (7.4-10.4); Platelet Count 441 K/uL (130-400); RDW Coefficient of Variation 13.2 % (11.5-14.5); RDW Standard Deviation 40.8 fL (36.4-46.3); Red Blood Count 3.95 M/uL (4.2-5.4); White Blood Count 8.96 K/uL (4.8-10.8)
[2021-04-12 06:36] LABS: Albumin Level 2.3 gm/dl (3.4-5.0); BUN Creatinine Ratio 13.7 (10-20); Calcium 8.2 mg/dl (8.5-10.1); Creatinine Clr Calc Pharmacy 149.1 ml/min; Est GFR (African American) 141.5 ml/min; Est GFR (Non-African American) 122.1 ml/min; Magnesium 1.6 mg/dl (1.8-2.4); Potassium 3.3 mmol/L (3.5-5.1)
--- NOTE | 2021-04-12 07:13 | CT Scan Report ---
CT head/brain wo con CLINICAL HISTORY: fall with hit head COMPARISON STUDY: No previous studies for comparison. TECHNIQUE: Axial CT of the brain is performed from the vertex to the skull base. IV contrast was not administered for this examination. A dose lowering technique was utilized adhering to the principles of ALARA. CT DOSE: 537.48 mGy.cm FINDINGS: No intra or extra-axial mass lesions are visualized. There is no CT evidence of acute cortical infarc tion. There is no evidence of midline shift. There is no acute hemorrhage. No calvarial fractures ar e visualized. Atrophic changes of brain parenchyma are seen predominantly within bilateral temporal lobes and assoc iated with ex vacuo dilatation of ventricles. No acute depressed skull fractures seen. Visualized paranasal sinuses and mastoid air cells are patent and well-aerated. IMPRESSION: 1. No acute intracranial hemorrhage, no midline shift or space-occupying lesions. 2. No acute depressed skull fractures. 3. Atrophic changes of brain parenchyma predominantly involving bilateral temporal lobes and associa truman with ex vacuo dilatation of ventricles. ACT 112: Negative or not required by law. The above report was generated using voice recognition software. It may contain grammatical, syntax o r spelling errors. Electronically signed by: Jesika Campos DO 04/12/2021 7:12 AM
[2021-04-12] MEDS ORDERED: SUCCINYLCHOLINE CHLORIDE 20 MG/ML 10 ML VIAL IV ONE (08:31)
[2021-04-12] MEDS ORDERED: ROCURONIUM BROMIDE 10 MG/ML 5 ML VIAL IV ONE (08:31)
[2021-04-12] MEDS ORDERED: fentaNYL citrate 100 MCG/2 ML VIAL ONE (08:31)
[2021-04-12] MEDS ORDERED: MIDAZOLAM HCL 1 MG/ML 2ML VIAL ONE (08:31)
[2021-04-12] MEDS ORDERED: LIDOCAINE 2% 2 ML VIAL/AMP(20MG/ML) INFIL ONE (08:31)
[2021-04-12] MEDS ORDERED: PROPOFOL IV EMULSION 10 MG/ML 20 ML VIAL IV ONE (08:31)
[2021-04-12] MEDS ORDERED: KETAMINE 50 MG/5 ML SYRINGE ONE (08:32)
[2021-04-12] MEDS: NSS + 20MEQ KCL 20 MEQ/1,000 ML BAG IV SCH (09:19)
[2021-04-12] MEDS: HEPARIN SOD 5,000 UNIT/0.5 ML VIAL SQ SCH ×3 (09:25→23:32)
[2021-04-12] MEDS: CHECK fentaNYL PATCH PLACEMENT SCH ×2 (09:26→15:40)
[2021-04-12] MEDS: SUCRALFATE 1 GM/10 ML UDC PO SCH ×4 (09:34→21:19)
[2021-04-12] MEDS: LATANOPROST 0.005% OP SOLN 2.5 ML BTL OP SCH (09:35)
[2021-04-12] MEDS: FAMOTIDINE 20 MG in SYRINGE 3 ML IV SCH ×2 (09:37→21:25)
--- NOTE | 2021-04-12 09:57 | Surgery Progress Note ---
Date of Service April 12, 2021 Assessment & Plan (1) Bowel obstruction: -Patient is for a diverting loop colostomy today -After speaking with anesthesia, would feel more comfortable with placement of NGT prior to undergoing anesthesia -Nursing attempted to place NGT with no success, I personally went up to room and tried to place NGT twice but was unsuccessful due to patient anxiety -Anesthesia will discuss giving patient some sedation in order to place NGT prior to intubation -Will be available as needed Admission and Anticipated Discharge Date Admission Date: April 04, 2021 Subjective Pt seen and examined. Afebrile. She is passing some flatus. She feels bloated. No N/V. Review of Systems Constitutional: no fever and no chills Physical Exam Constitutional: + ill appearing and + thin; no acute distress and no altered mental status ENMT: external ear and nose normal, oropharynx normal Respiratory: normal respiratory effort, lungs clear to auscultation Auscultation: + diminished lung sounds (Bases) Cardiovascular: RRR, no murmur, no edema Rate/Rhythm: regular rhythm and + tachycardic Heart Sounds: normal S1 and normal S2; no murmur Vessels: posterior tibial pulses present and dorsalis pedis pulses present; no JVD Extremities: + edema (Trace-1+ b/l ) Gastrointestinal (Abdomen): Inspection/Auscultation: + abdomen distended and + hypoactive bowel sounds Percussion/Palpation: + abdomen tender (Generalized ); no guarding, abdomen not rigid, no hepatosplenomegaly and no hernia Skin: no rashes, warm and dry Psychiatric: Orientation: alert, oriented to person, oriented to place and oriented to time Affect: + irritable affect Results & Data ([facility]) Vital Signs (Past 12 Hours) Vital Signs Temp Pulse Resp BP Pulse Ox 04/12/21 07:50 36.7 C 88 18 157/87 H 96 04/12/21 03:14 36.7 C 95 H 16 153/80 H 94 04/12/21 02:06 36.8 C 100 H 16 158/85 H 96 04/12/21 01:02 36.7 C 91 H 16 150/82 H 94 04/12/21 00:12 36.8 C 95 H 16 153/88 H 94 PG Care Time/CCT Total # of Minutes Spent Total Time Spent with Patient: Total time spent is greater than 50% in coordination of care (as documented) at patient's floor/unit and/or counseling patient: Coding Level of Care Code 90420 Subseq Hosp Care Lvl 1 Diagnoses Bowel obstruction K56.609 Intestinal obstruction extent: unspecified extent Intestinal obstruction type: unspecified (1) Bowel obstruction Intestinal obstruction extent: unspecified extent Intestinal obstruction type: unspecified Qualified Code(s): K56.609 - Unspecified intestinal obstruction, unspecified as to partial versus complete obstruction
[2021-04-12] MEDS: MAGNESIUM SULFATE / D5W 1 GM/100 ML BAG IV SCH ×2 (10:27→15:39)
[2021-04-12] MEDS: POTASSIUM CHLORIDE / WTR 10 MEQ/100 ML PLCT IV SCH ×2 (10:27→15:38)
[2021-04-12] MEDS ORDERED: ePHEDrine sulfate 50 MG/ML AMP IV PRN (11:10)
[2021-04-12] MEDS ORDERED: fentaNYL citrate 100 MCG/2 ML VIAL IV PRN (11:10)
[2021-04-12] MEDS ORDERED: ATROPINE SULFATE 0.1 MG/ML 10ML SYR IV PRN (11:10)
[2021-04-12] MEDS ORDERED: ONDANSETRON INJ 2 MG/ML 2 ML VIAL IV PRN (11:10)
[2021-04-12] MEDS ORDERED: HYDROmorphone INJ 2 MG/ML SYR/VIAL ONE (12:07)
[2021-04-12] MEDS ORDERED: LABETALOL HCL IV 5 MG/ML 20ML IV ONE (12:42)
[2021-04-12] MEDS ORDERED: DEXAMETHASONE SOD INJ 4 MG/ML VIAL ONE (12:43)
[2021-04-12] MEDS ORDERED: ONDANSETRON INJ 2 MG/ML 2 ML VIAL ONE (12:43)
--- NOTE | 2021-04-12 12:47 | Post Operative Brief Note ---
PG Immediate Post Op with CF Date of Surgery April 12, 2021 Pre & Post Diagnosis Operation Date: 04/12/21 08:55 Pre-Op Diagnosis: Large Bowel Obstruction, peritoneal carcinomatosis Post-Op Diagnosis: Large Bowel Obstruction, peritoneal carcinomatosis I identified the patient and participated in the time-out.: Yes Procedure Operation Date: 04/12/21 08:55 Actual Procedures p Creation of Diverting Transverse Loop Colostomy - Chris Arenas DO Surgeon Chris Arenas DO Robot Operator Bola Chamberlain PA-C Estimated Blood Loss 10 Findings Consistent with Post-Op Diagnosis Anesthesia Type General Complications none Disposition Disposition: Recovery Room
--- NOTE | 2021-04-12 12:59 | Operative Report ---
PG Post Operative Report Pre & Post Diagnosis Operation Date: 04/12/21 08:55 Pre-Op Diagnosis: Large Bowel Obstruction, peritoneal carcinomatosis Post-Op Diagnosis: Large Bowel Obstruction, peritoneal carcinomatosis I identified the patient and participated in the time-out.: Yes Procedure Operation Date: 04/12/21 08:55 Actual Procedures p Creation of Diverting Transverse Loop Colostomy - Chris Arenas DO Surgeon Chris Arenas DO Body Builder Apprentice Bola Chamberlain PA-C Estimated Blood Loss 10 Findings Consistent with Post-Op Diagnosis Fluids see anesthesia record Specimens None Drains None Anesthesia Type General Complications none Disposition Disposition: Recovery Room Indications 65 yo female with ovarian CA, peritoneal carcinomatosis causing large bowel obstruction at the splenic flexure Description of Procedure The patient was brought to the OR and placed in the supine position with both arms abducted. At this time she underwent general endotracheal anesthesia without any problems. She was given appropriate pre-operative antibiotics. Her abdomen was prepped and draped in the usual sterile fashion. Timeout was called. The procedure was verified as Creation of a Diverting Transverse Loop Colostomy. Surgical, anesthesia and nursing teams agreed and the procedure was begun. A small upper midline incision was made using a #10 blade scalpel. This was carried down to the fascia using electrocautery. The midline fascia was then incised with electrocautery. The peritoneum was then grasped with two hemostat clamps and entered sharply with Metzenbaum scissors. The incision was then opened up through its entirety. The transverse colon was then identified by the haustral markings and teniae coli. There was some omentum stuck to the colon which was lysed free using electrocautery. The colon was then delivered into the wound. A small window was made in the transverse mesocolon in preparation for placement of the skin bridge. At this time hemostasis was achieved using electrocautery. Hemostasis was complete. The fascia was then closed inferiorly using interrupted 0-PDS suture. One was also placed at the superior portion of the incision. The resulting fascial opening allowed the colon easily. Skin was closed with 3-0 Vicryl. A transverse colotomy was made using electrocautery. The distal and proximal limbs of the colostomy were widely patent. At this time the colostomy was matured using 3-0 Vicryl suture in a santee sioux fashion to the dermis. The skin bridge was placed and sutured to the skin using 2-0 Nylon suture. Ostomy appliance was placed. Sterile dressing was applied. All needle and sponge counts were correct x 2. At this point the patient was awakened from anesthesia, and transported to PACU in stable condition. The physician's logistics assistant was present and scrubbed for the entirety of the case. He was critical in positioning the patient, prepping and draping, retraction and exposure, closure of the incision and placement of the dressings. I attest to the content of the Intraoperative Record and any orders documented therein. Any exceptions are noted below.
[2021-04-12] MEDS: HYDROmorphone INJ 2 MG/ML SYR/VIAL IV PRN ×2 (13:17→13:22)
--- NOTE | 2021-04-12 13:47 | Anesthesiology Progress Note ---
Date of Service April 12, 2021 Anesthesia Post Procedure Vital Signs Vital Signs: Temp Pulse Pulse Pulse Resp BP BP 04/12/21 13:35 94 H 15 156/105 H 04/12/21 13:25 90 12 151/82 H 04/12/21 13:15 92 H 13 176/105 H 04/12/21 13:05 36.6 C 86 13 169/98 H 04/12/21 11:08 36.7 C 88 18 157/87 H 04/12/21 07:50 36.7 C 88 18 157/87 H 04/12/21 03:14 36.7 C 95 H 16 153/80 H 04/12/21 02:06 36.8 C 100 H 16 158/85 H 04/12/21 01:02 36.7 C 91 H 16 150/82 H 04/12/21 00:12 36.8 C 95 H 16 153/88 H 04/11/21 20:00 36.7 C 152 H 16 175/95 H Pulse Ox 04/12/21 13:35 92 04/12/21 13:25 98 04/12/21 13:15 98 04/12/21 13:05 98 04/12/21 11:08 96 04/12/21 07:50 96 04/12/21 03:14 94 04/12/21 02:06 96 04/12/21 01:02 94 04/12/21 00:12 94 04/11/21 20:00 97 Pain Intensity Bilateral Abdomen: Pain Intensity: 4 Left Wrist: Pain Intensity: 4 Abdomen: Pain Intensity: 6 Transfer of Care Handoff Completed per policy Notes Mental Status: alert / awake / arousable and participated in evaluation Patient Amnestic to Procedure: Yes Nausea / Vomiting: adequately controlled Pain: adequately controlled Airway Patency, RR, SpO2: stable & adequate BP & HR: stable & adequate Hydration State: stable & adequate Anesthetic Complications: no major complications apparent and Pt Satisfied with anesthetic care
[2021-04-12] MEDS ORDERED: ACETAMINOPHEN 325 MG TAB PO PRN (14:40)
[2021-04-12] MEDS ORDERED: HYDROmorphone INJ 0.5 MG/0.5 ML SYR IV STA (18:11)
--- NOTE | 2021-04-12 20:44 | Hospitalist Progress Note ---
Date of Service April 12, 2021 Assessment & Plan (1) Bowel obstruction: POD #0 -- s/p transverse colostomy formation by Dr Arenas today. this was performed due to colonic obstruction with transition point at the splenic flexure. peritoneal metastatic implant from her carcinomatosis/ovarian cancer was the cause of her large bowel obstruction. continue IVF, NPO status, pain control. following my visit ordered dilaudid 0.5mg IV x 1. once more awake can transition over to COUNSELING DIRECTOR dilaudid. appreciate Dr Arenas's assistance. labs in am. spoke with Dr Yenny Morrison at [facility] on 04/08/21 re: possible transfer to [facility] for intervention this was at patient's request patient had had a telehealth consultation with her in February [address] Morrison and her surgical team declined her transfer to [facility] in [facility] on Thursday of this week see my prior progress notes for details on other requests for transfer earlier this week and other details of this week (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 s/p paclitaxol x 1 round earlier this month. was scheduled for 2nd round of chemotherapy on 04/04 but did not receive due to this hospitalization. see above in "bowel obstruction". follows with Dr Morel at [facility] locally (3) Ovarian cancer: See above mets to peritoneal cavity, spleen, etc. (4) Abdominal pain: ongoing 2nd to carcinomatosis and colonic obstruction. now with appropriate post-op pain. Continue fentanyl patch. Continue dilaudid COUNSELING DIRECTOR. (5) Hyponatremia: Sodium 126-128 on 04/02 and 04/03, respectively. Serum osmolality 274, urine osmolality 642. 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 Has ehad lement of volume contraction as well given improvement in Na level with isotonic fluids. Cont isotonic IV fluids given her NPO status / post-op status. Na 130 today - repeat bmp am. Looks mildly volume contracted still. (6) Hypokalemia: replete with 2 runs of IV KCL - 20meq in total. Cont IV KCL in basal fluids. replete low mag. repeat labs am. (7) History of diabetes mellitus: a1c 6% c/w pre-DM only. control has been satisfactory. (8) Elevated blood pressure reading without diagnosis of hypertension: suspect 2nd to pain, anxiety, irritability, etc follow would not Rx at this time (9) Anxiety: xanax prn (10) Tachycardia: likely due to pain, but given her extensive ovarian ca - if it persists - consider checking for PEs with CTA chest follow carefully (11) Hypomagnesemia: 2 gms mag sulfate IV repeat mag level am replete low K (12) DVT prophylaxis: heparin 5000 TID GI proph - IV pepcid BID; carafate qid , Wilton Moran, updated at bedside this afternoon I formally consulted Service Excellence today due to the complexity of her hos pital course this week, disenchantment with various aspects of her care, etc. Admission and Anticipated Discharge Date Admission Date: April 04, 2021 Subjective saw patient post-op from her transverse colostomy formation surgery she was initially fast asleep, laying completely flat in bed at bedside I called her name and she awoke she stated "I have to pee", then c/o pain in her central abdomen she started moaning in pain no vomiting since return from OR staff report she has primarily been sleeping since returning from OR this am, prior to going to OR, had asked me to call him I called his cell # and had left message also left message on home phone voicemail [id number] I did see him at bedside post-op and gave him update apparently fell last evening, ?hit head? patient could not give me details during my rounds since she was so sleepy CT head last pm without ICH or Fx lastly, prior to going to OR today, anesthesia had requested NG tube placement multiple attempts at this while on the med/surg unit were not successful Review of Systems Review of Systems: Unobtainable due to cognitive status Physical Exam Constitutional: + acute distress (Abdominal pain ), + ill appearing, + thin and + altered mental status (Very sleepy ) ENMT: Mouth: + lip abnormality (Dry) and + dry oral mucous membranes Respiratory: normal respiratory effort, lungs clear to auscultation Auscultation: + diminished lung sounds (Bases) Cardiovascular: Rate/Rhythm: regular rhythm and + tachycardic Heart Sounds: normal S1 and normal S2; no murmur Vessels: posterior tibial pulses present and dorsalis pedis pulses present; no JVD Extremities: + edema (Trace-1+ b/l ) Gastrointestinal (Abdomen): Inspection/Auscultation: + abdomen distended and + hypoactive bowel sounds Percussion/Palpation: + abdomen tender (Generalized ); no guarding, abdomen not rigid, no hepatosplenomegaly and no hernia colostomy present with bag; scant brown stool in bag Skin: no rashes, warm and dry Psychiatric: Orientation: oriented to person; + not alert Results & Data Results & Data ([facility]) Vital Signs (Past 12 Hours) Vital Signs Temp Pulse Pulse Resp BP BP Pulse Ox 04/12/21 17:44 36.5 C 108 H 12 151/89 H 94 04/12/21 16:49 97 H 18 137/83 97 04/12/21 15:45 36.3 C L 99 H 14 136/81 94 04/12/21 15:10 36.4 C L 98 H 14 138/81 93 04/12/21 14:40 36.2 C L 100 H 16 134/83 91 04/12/21 13:55 36.2 C L 96 H 14 150/87 H 92 04/12/21 13:45 94 H 11 L 158/95 H 92 04/12/21 13:35 94 H 15 156/105 H 92 04/12/21 13:25 90 12 151/82 H 98 04/12/21 13:15 92 H 13 176/105 H 98 04/12/21 13:05 36.6 C 86 13 169/98 H 98 04/12/21 11:08 36.7 C 88 18 157/87 H 96 Laboratory Results Laboratory Results - last 24 hr 04/12/21 04/12/21 04/12/21 05:01 05:01 13:07 WBC 8.96 RBC 3.95 L Hgb 11.8 L Hct 33.6 L MCV 85.1 MCH 29.9 MCHC 35.1 RDW Std Deviation 40.8 RDW Coeff of Huy 13.2 Plt Count 441 H MPV 8.3 Sodium 130 L Potassium 3.3 L Chloride 97 L Carbon Dioxide 25 Anion Gap 8.0 BUN 4 L D Creatinine 0.28 L Est Cr Clr Drug Dosing 149.1 Est GFR ( Amer) 141.5 Est GFR (Non-Af Amer) 122.1 BUN/Creatinine Ratio 13.7 Glucose 79 POC Glucose 153 H Calcium 8.2 L Magnesium 1.6 L Albumin 2.3 L PG Care Time/CCT Total # of Minutes Spent Total Time Spent with Patient: Total time spent is greater than 50% in coordination of care (as documented) at patient's floor/unit and/or counseling patient: Coding Level of Care Code 68456 Subseq Hosp Care Lvl 3 Diagnoses Bowel obstruction K56.600 Intestinal obstruction extent: partial Intestinal obstruction type: unspecified Peritoneal carcinomatosis C78.6 Ovarian cancer C56.9 Laterality: unspecified laterality Abdominal pain R10.84 Abdominal location: generalized Hyponatremia E87.1 Hypokalemia E87.6 History of diabetes mellitus Z86.39 Elevated blood pressure reading without diagnosis of hypertension R03.0 Anxiety F41.9 Tachycardia R00.0 Hypomagnesemia E83.42 DVT prophylaxis Z29.9 (1) Ovarian cancer Laterality: unspecified laterality Qualified Code(s): C56.9 - Malignant neoplasm of unspecified ovary (2) Bowel obstruction Intestinal obstruction extent: partial Intestinal obstruction type: unspecified Qualified Code(s): K56.600 - Partial intestinal obstruction, unspecified as to cause (3) Abdominal pain Abdominal location: generalized Qualified Code(s): R10.84 - Generalized abdominal pain
[2021-04-13] MEDS: SODIUM CHLORIDE 0.9% 1000ML 1,000 ML IV SCH ×3 (00:13→21:14)
[2021-04-13] MEDS: CHECK fentaNYL PATCH PLACEMENT SCH ×4 (00:14→23:26)
[2021-04-13] MEDS: fentaNYL 25 MCG/HR TDSY TD SCH (02:05)
[2021-04-13] MEDS: NSS + 20MEQ KCL 20 MEQ/1,000 ML BAG IV SCH ×2 (03:25→20:29)
[2021-04-13 06:04] LABS: Basophils # (auto) 0.02 K/uL (0-0.2); Basophils % (auto) 0.1 %; Hematocrit (blood only) 32.7 % (37-47); Hemoglobin 11.3 g/dL (12.0-16.0); Immature Granulocytes # (auto) 0.62 K/uL (0.00-0.02); Immature Granulocytes % (auto) 4.4 %; Lymphocytes # (auto) 1.59 K/uL (1.2-3.4); Lymphocytes % (auto) 11.4 %; Mean Corpuscular Hemoglobin 29.1 pg (25-34); Mean Corpuscular Hgb Conc 34.6 g/dL (32-36); Mean Corpuscular Volume 84.3 fL (80-100); Mean Platelet Volume 7.9 fL (7.4-10.4); Monocytes # (auto) 2.65 K/uL (0.11-0.59); Neutrophils # (auto) 9.07 K/uL (1.4-6.5); Neutrophils % (auto) 65.1 %; Platelet Count 432 K/uL (130-400); RDW Coefficient of Variation 13.6 % (11.5-14.5); Red Blood Count 3.88 M/uL (4.2-5.4); White Blood Count 13.95 K/uL (4.8-10.8)
[2021-04-13 06:38] LABS: BUN Creatinine Ratio 17.2 (10-20); Calcium 8.1 mg/dl (8.5-10.1); Creatinine Clr Calc Pharmacy 99.4 ml/min; Est GFR (African American) 123.8 ml/min; Est GFR (Non-African American) 106.8 ml/min; Magnesium 2.1 mg/dl (1.8-2.4); Potassium 4.4 mmol/L (3.5-5.1)
[2021-04-13] MEDS: HEPARIN SOD 5,000 UNIT/0.5 ML VIAL SQ SCH ×2 (09:21→15:15)
[2021-04-13] MEDS: FAMOTIDINE 20 MG in SYRINGE 3 ML IV SCH ×2 (09:22→21:15)
--- NOTE | 2021-04-13 10:11 | Anesthesiology Progress Note ---
Date of Service April 13, 2021 Anesthesia Post Procedure Vital Signs Vital Signs: Temp Pulse Pulse Resp BP BP Pulse Ox 04/13/21 08:33 36.6 C 103 H 15 137/80 95 04/13/21 03:47 36.5 C 110 H 24 146/83 H 95 04/12/21 23:33 36.8 C 115 H 16 147/86 H 94 04/12/21 17:44 36.5 C 108 H 12 151/89 H 94 04/12/21 16:49 97 H 18 137/83 97 04/12/21 15:45 36.3 C L 99 H 14 136/81 94 04/12/21 15:10 36.4 C L 98 H 14 138/81 93 04/12/21 14:40 36.2 C L 100 H 16 134/83 91 04/12/21 13:55 36.2 C L 96 H 14 150/87 H 92 04/12/21 13:45 94 H 11 L 158/95 H 92 04/12/21 13:35 94 H 15 156/105 H 92 04/12/21 13:25 90 12 151/82 H 98 04/12/21 13:15 92 H 13 176/105 H 98 04/12/21 13:05 36.6 C 86 13 169/98 H 98 04/12/21 11:08 36.7 C 88 18 157/87 H 96 Pain Intensity Bilateral Abdomen: Pain Intensity: 4 Left Wrist: Pain Intensity: 4 Abdomen: Pain Intensity: 8 Transfer of Care Handoff Completed per policy Notes Mental Status: alert / awake / arousable and participated in evaluation Nausea / Vomiting: adequately controlled Pain: adequately controlled Airway Patency, RR, SpO2: stable & adequate BP & HR: stable & adequate Hydration State: stable & adequate Anesthetic Complications: no major complications apparent and Pt Satisfied with anesthetic care Notes:
[2021-04-13] MEDS: LATANOPROST 0.005% OP SOLN 2.5 ML BTL OP SCH (10:40)
[2021-04-13] MEDS: SUCRALFATE 1 GM/10 ML UDC PO SCH ×4 (10:41→21:15)
--- NOTE | 2021-04-13 11:45 | Surgery Progress Note ---
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 POD#1 from loop transverse colostomy which is functioning well. OK to advance diet as tolerated (full liquids ordered today). No new recommendations. Present on Admission?: Yes (2) Ovarian cancer: Admission and Anticipated Discharge Date Admission Date: April 04, 2021 Subjective Lying in bed. POD#1 from loop colostomy. Not eating or drinking much. Falls asleep while talking. Pain in central abdomen persists. Physical Exam Constitutional: + cachectic; no acute distress Respiratory: normal respiratory effort, lungs clear to auscultation Cardiovascular: RRR, no murmur, no edema Gastrointestinal (Abdomen): Inspection/Auscultation: abdomen normal to inspection and normal bowel sounds Percussion/Palpation: + abdomen tender (does not want abdomen pushed on) and abdomen soft ostomy viable with gas and liquid brown stool in bag, dressing is dry Results & Data ([facility]) Vital Signs (Past 12 Hours) Vital Signs Temp Pulse Resp BP Pulse Ox 04/13/21 08:33 36.6 C 103 H 15 137/80 95 04/13/21 03:47 36.5 C 110 H 24 146/83 H 95 Laboratory Results 04/13/21 04/13/21 04/12/21 Range/Units 05:47 05:47 13:07 WBC 13.95 H (4.8-10.8) K/uL RBC 3.88 L (4.2-5.4) M/uL Hgb 11.3 L (12.0-16.0) g/dL Hct 32.7 L (37-47) % MCV 84.3 (80-100) fL MCH 29.1 (25-34) pg MCHC 34.6 (32-36) g/dL RDW Std Deviation 41.0 (36.4-46.3) fL RDW Coeff of Huy 13.6 (11.5-14.5) % Plt Count 432 H (130-400) K/uL MPV 7.9 (7.4-10.4) fL Immature Gran % (Auto) 4.4 % Neut % (Auto) 65.1 % Lymph % (Auto) 11.4 % Cross % (Auto) 19.0 % Eos % (Auto) 0.0 % Baso % (Auto) 0.1 % Neut # (Auto) 9.07 H (1.4-6.5) K/uL Lymph # (Auto) 1.59 (1.2-3.4) K/uL Cross # (Auto) 2.65 H (0.11-0.59) K/uL Eos # (Auto) 0.00 (0-0.5) K/uL Baso # (Auto) 0.02 (0-0.2) K/uL Immature Gran # (Auto) 0.62 H (0.00-0.02) K/uL Sodium 132 L (136-145) mmol/L Potassium 4.4 D (3.5-5.1) mmol/L Chloride 100 (98-107) mmol/L Carbon Dioxide 24 (21-32) mmol/L Anion Gap 8.0 (3-11) BUN 7 (7-18) mg/dl Creatinine 0.42 L (0.6-1.2) mg/dl Est Cr Clr Drug Dosing 99.4 ml/min Est GFR ( Amer) 123.8 ml/min Est GFR (Non-Af Amer) 106.8 ml/min BUN/Creatinine Ratio 17.2 (10-20) Glucose 119 H (70-99) mg/dl POC Glucose 153 H (70-99) mg/dl Calcium 8.1 L (8.5-10.1) mg/dl Magnesium 2.1 (1.8-2.4) mg/dl (1) Bowel obstruction Intestinal obstruction extent: unspecified extent Intestinal obstruction type: unspecified Qualified Code(s): K56.609 - Unspecified intestinal obstruction, unspecified as to partial versus complete obstruction (2) Ovarian cancer Laterality: unspecified laterality Qualified Code(s): C56.9 - Malignant neoplasm of unspecified ovary
[2021-04-13] MEDS ORDERED: ENOXAPARIN INJ 40 MG/0.4 ML SYR SQ ONE (17:34)
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
[2021-04-14] MEDS: CHECK fentaNYL PATCH PLACEMENT SCH ×2 (07:42→15:52)
[2021-04-14 08:32] LABS: Hematocrit (blood only) 29.8 % (37-47); Hemoglobin 10.3 g/dL (12.0-16.0); Mean Corpuscular Hemoglobin 29.3 pg (25-34); Mean Corpuscular Hgb Conc 34.6 g/dL (32-36); Mean Corpuscular Volume 84.9 fL (80-100); Mean Platelet Volume 7.9 fL (7.4-10.4); Platelet Count 431 K/uL (130-400); RDW Coefficient of Variation 13.9 % (11.5-14.5); RDW Standard Deviation 42.3 fL (36.4-46.3); Red Blood Count 3.51 M/uL (4.2-5.4); White Blood Count 13.89 K/uL (4.8-10.8)
[2021-04-14 08:58] LABS: BUN Creatinine Ratio 30.1 (10-20); Calcium 8.3 mg/dl (8.5-10.1); Creatinine Clr Calc Pharmacy 134.7 ml/min; Est GFR (African American) 136.8 ml/min; Potassium 3.6 mmol/L (3.5-5.1)
[2021-04-14] MEDS: FAMOTIDINE 20 MG in SYRINGE 3 ML IV SCH ×2 (09:58→22:37)
[2021-04-14] MEDS: ENOXAPARIN INJ 40 MG/0.4 ML SYR SQ SCH (09:59)
[2021-04-14] MEDS: LATANOPROST 0.005% OP SOLN 2.5 ML BTL OP SCH (09:59)
[2021-04-14] MEDS: SUCRALFATE 1 GM/10 ML UDC PO SCH ×4 (10:00→22:37)
[2021-04-14] MEDS ORDERED: OPTIRAY 350 500ml IV ONE (10:38)
--- NOTE | 2021-04-14 10:58 | CT Scan Report ---
CHEST CTA for PULMONARY ARTERIES CT DOSE: 250.26 mGy.cm HISTORY: Tachycardia. Recent surgery. Evaluate for pulmonary embolus. TECHNIQUE: Multiaxial CT images of the chest were performed following the intravenous administration of contrast to evaluate the pulmonary arteries. Maximal intensity projection images were also obtaine d. A dose lowering technique was utilized adhering to the principles of ALARA. COMPARISON STUDY: Abdomen and pelvis CT 04/03/2021. Chest CT 03/01/2021. FINDINGS: Fluid and a small amount of pneumoperitoneum within the upper abdomen. This likely represen ts the recent postoperative change. Extensive peritoneal carcinomatosis within the upper abdomen is a gain noted. There are small bilateral pleural effusions. No pericardial effusion. The heart is normal in size. Normal caliber thoracic aorta with no evidence for dissection. No filling defects within th e pulmonary arteries to suggest pulmonary embolus. No mediastinal or hilar lymphadenopathy. Normal ca liber esophagus. No suspicious lytic or blastic osseous lesions. No pneumothorax. Densities within th e bilateral lower lobes posteriorly are nonspecific but favor compressive atelectasis from the pleura l effusions. IMPRESSION: 1. No evidence for pulmonary embolus. 2. Small bilateral pleural effusions. 3. Bilateral lower lobe densities are nonspecific but favor atelectasis from the pleural effusions. 4. Extensive peritoneal carcinomatosis within the upper abdomen is again noted. 5. Small amount of pneumoperitoneum and fluid within the upper abdomen. This is nonspecific but likel y due to the recent postoperative change. ACT 112: Negative or not required by law. Electronically signed by: Abraham Church M.D. 04/14/2021 10:56 AM
--- NOTE | 2021-04-14 11:05 | Surgery Progress Note ---
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 POD#2 from loop transverse colostomy which is functioning well. OK to advance diet as tolerated (low fiber diet ordered today). No new recommendations. CT angio negative for PE Remains hypertensive, tachycardic. (2) Ovarian cancer: Admission and Anticipated Discharge Date Admission Date: April 04, 2021 Subjective Was on her way down for CT angio. Notes "pain" but no nausea/ vomiting. current pain was from iv infusion of pepcid. Ostomy functioning. Tolerating full liquid diet. Physical Exam Constitutional: + cachectic; no acute distress Gastrointestinal (Abdomen): Inspection/Auscultation: abdomen normal to inspection and normal bowel sounds Percussion/Palpation: + abdomen tender (does not want abdomen pushed on, diffusely tender) and abdomen soft ostomy functioning Results & Data ([facility]) Vital Signs (Past 12 Hours) Vital Signs Temp Pulse Resp BP Pulse Ox 04/14/21 08:09 116 H 171/85 H 04/14/21 07:35 127 H 14 178/94 H 98 04/13/21 23:26 37 C 104 H 16 159/89 H 95 (1) Bowel obstruction Intestinal obstruction extent: unspecified extent Intestinal obstruction type: unspecified Qualified Code(s): K56.609 - Unspecified intestinal obstruction, unspecified as to partial versus complete obstruction (2) Ovarian cancer Laterality: unspecified laterality Qualified Code(s): C56.9 - Malignant neoplasm of unspecified ovary
[2021-04-14] MEDS: SODIUM CHLORIDE 0.9% 1000ML 1,000 ML IV SCH ×2 (11:27→21:32)
--- NOTE | 2021-04-14 16:10 | Hospitalist Progress Note ---
Date of Service April 14, 2021 Assessment & Plan (1) Bowel obstruction: S/p transverse colostomy formation by Dr. Arenas on 04/12/2021. - Ostomy is functioning well with brown stool today. - Pain present, but tolerable. - Advance diet as tolerated. 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 S/p paclitaxel x 1 round earlier this month. Was scheduled for 2nd round of chemotherapy on 04/04 but did not receive due to this hospitalization. - Follows with Dr Morel at [facility] locally. - Will discuss with him in the morning. (3) Tachycardia: Likely due to pain, volume depletion. CTA chest on 04/14 was negative for PE. - Monitor (4) Ovarian cancer: See above. (5) Elevated blood pressure reading without diagnosis of hypertension: BP today is 160/80. Suspect 2nd to pain, anxiety. - Monitor (6) Hyponatremia: Sodium 126-128 on 04/02 and 04/03, respectively. Serum osmolality 274, urine osmolality 642. 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 - Continue IV fluids - Up to 132 over last few days. Stable. (7) History of diabetes mellitus: A1c was 6% this admission c/w pre-DM only. - Monitor (8) Anxiety: - Continue Xanax PRN (9) DVT prophylaxis: Lovenox 40mg SQ daily - She refused this today despite prior conversation with Dr. Jane. Admission and Anticipated Discharge Date Admission Date: April 04, 2021 Subjective Reported pain (or mostly discomfort) in the abdomen today. No pain in the arms/legs/chest or other. No shortness of breath. Physical Exam Constitutional: WD/WN, vitals as above + acute distress Eyes: EOM intact bilaterally; no conjunctival abnormality ENMT: external ear and nose normal, oropharynx normal Neck: trachea midline, no thyromegaly normal visual inspection Respiratory: normal respiratory effort, lungs clear to auscultation no respiratory distress Cardiovascular: Rate/Rhythm: regular rhythm and + tachycardic Heart Sounds: normal S1 and normal S2 Vessels: no JVD Extremities: no edema Gastrointestinal (Abdomen): Inspection/Auscultation: + hypoactive bowel sounds; + abdomen abnormal to inspection (Colostomy bag with contents) and abdomen not distended Percussion/Palpation: abdomen soft; no guarding and abdomen not rigid Musculoskeletal: no cyanosis or clubbing, extremities motor strength 5/5 Skin: no rashes, warm and dry Neurologic: moves all extremities and awake Psychiatric: Orientation: alert, oriented to person and cooperative Results & Data Results & Data ([facility]) Vital Signs (Past 12 Hours) Vital Signs Temp Pulse Resp BP Pulse Ox 04/14/21 15:50 36.8 C 127 H 16 162/83 H 97 04/14/21 12:20 37.3 C 112 H 12 168/72 H 97 04/14/21 08:09 116 H 171/85 H 04/14/21 07:35 127 H 14 178/94 H 98 PG Care Time/CCT Total # of Minutes Spent Total Time Spent with Patient: Total time spent is greater than 50% in coordination of care (as documented) at patient's floor/unit and/or counseling patient: Coding Level of Care Code 25082 Subseq Hosp Care Lvl 2 Diagnoses Bowel obstruction K56.600 Intestinal obstruction type: unspecified Intestinal obstruction extent: partial Peritoneal carcinomatosis C78.6 Tachycardia R00.0 Ovarian cancer C56.9 Laterality: unspecified laterality Elevated blood pressure reading without diagnosis of hypertension R03.0 Hyponatremia E87.1 History of diabetes mellitus Z86.39 Anxiety F41.9 DVT prophylaxis Z29.9 (1) Bowel obstruction Intestinal obstruction type: unspecified Intestinal obstruction extent: partial Qualified Code(s): K56.600 - Partial intestinal obstruction, unspecified as to cause (2) Ovarian cancer Laterality: unspecified laterality Qualified Code(s): C56.9 - Malignant neoplasm of unspecified ovary
[2021-04-14] MEDS: ALPRAZolam 0.25 MG TABLET PO PRN (22:37)
[2021-04-15] MEDS: CHECK fentaNYL PATCH PLACEMENT SCH ×4 (01:00→23:54)
[2021-04-15] MEDS: SODIUM CHLORIDE 0.9% 1000ML 1,000 ML IV SCH ×3 (01:42→23:54)
[2021-04-15] MEDS: ALPRAZolam 0.25 MG TABLET PO PRN (05:56)
[2021-04-15] MEDS: ENOXAPARIN INJ 40 MG/0.4 ML SYR SQ SCH (07:25)
[2021-04-15] MEDS: LATANOPROST 0.005% OP SOLN 2.5 ML BTL OP SCH (07:27)
[2021-04-15] MEDS: SUCRALFATE 1 GM/10 ML UDC PO SCH ×4 (07:27→21:11)
[2021-04-15] MEDS: FAMOTIDINE 20 MG in SYRINGE 3 ML IV SCH ×2 (07:29→21:13)
[2021-04-15] MEDS: HYDROmorphone PCA 30 MG/30 ML IV PRN (07:36)
[2021-04-15 08:34] LABS: Hematocrit (blood only) 30.1 % (37-47); Hemoglobin 10.6 g/dL (12.0-16.0); Mean Corpuscular Hemoglobin 30.1 pg (25-34); Mean Corpuscular Hgb Conc 35.2 g/dL (32-36); Mean Corpuscular Volume 85.5 fL (80-100); Mean Platelet Volume 7.7 fL (7.4-10.4); Platelet Count 392 K/uL (130-400); RDW Coefficient of Variation 13.5 % (11.5-14.5); RDW Standard Deviation 42.1 fL (36.4-46.3); Red Blood Count 3.52 M/uL (4.2-5.4); White Blood Count 10.69 K/uL (4.8-10.8)
[2021-04-15 09:09] LABS: BUN Creatinine Ratio 13.5 (10-20); Calcium 8.4 mg/dl (8.5-10.1); Est GFR (African American) 139.8 ml/min; Est GFR (Non-African American) 120.7 ml/min; Magnesium 1.7 mg/dl (1.8-2.4)
[2021-04-15] MEDS ORDERED: POTASSIUM CHLORIDE PWD 20 MEQ PACK PO ONE (10:00)
--- NOTE | 2021-04-15 11:21 | Surgery Progress Note ---
Date of Service April 15, 2021 Assessment & Plan (1) Peritoneal carcinomatosis: POD 3 loop colostomy stable postop tolerating diet may shower Admission and Anticipated Discharge Date Admission Date: April 04, 2021 Supervising Physician Co-Signing Physician Notes I personally saw the patient with Eagle Chamberlain PA-C and agree with the assessment and plan 65 yo female s/p diverting transverse loop colostomy for LBO secondary to carcinomatosis -Colostomy functioning well -Advance diet as tolerated -Ok to discharge from surgical standpoint Subjective some nausea this morning, having ostomy output, on low fiber diet Physical Exam Gastrointestinal (Abdomen): Inspection/Auscultation: + abdomen distended (less) Percussion/Palpation: abdomen soft +ostomy output Results & Data ([facility]) Vital Signs (Past 12 Hours) Vital Signs Temp Pulse Resp BP Pulse Ox 04/15/21 07:30 36.7 C 99 H 18 157/88 H 97 PG Care Time/CCT Total # of Minutes Spent Total Time Spent with Patient: Total time spent is greater than 50% in coordination of care (as documented) at patient's floor/unit and/or counseling patient: Coding Level of Care Code None Diagnoses Peritoneal carcinomatosis C78.6
[2021-04-15] MEDS: APIXABAN 2.5 MG TAB PO SCH ×2 (11:26→21:11)
--- NOTE | 2021-04-15 14:59 | Palliative Care Progress Note ---
Date of Service April 15, 2021 Assessment & Plan (1) Palliative care encounter: Patient had diverting palliative diverting colostomy POD #4. Dr. Olson met with pt and at bedside. Today, palliative Medicine focused on pain management needs. Palliative care will follow to continue to assist patient and family with goals of care periodically, see below. (2) Bowel obstruction: (3) Abdominal pain: Continue fentanyl at current dose. Patient on Dilaudid BELT TENDER 0.2 mg bolus, no basal, and 15 minutes lockout and 24 hour review indicates: 24 mg injection and 179 attempts = 4.02 mg delivered. This equals 16 mg OME in 24 hours. Will discontinue Dilaudid BELT TENDER and start Oxycodone IR 5 mg PO Q4 PRN and we will evaluate PRN usage needed to control her baseline pain. and patient educated that it is unrealistic to have expectation for 0/10 pain. Need to establish an appropriate level of pain. (4) Ovarian cancer: (5) Carcinoma of peritoneum: Admission and Anticipated Discharge Date Admission Date: April 04, 2021 Subjective Pt having some pain and has been utilizing the Dilaudid BELT TENDER. Pt is awake, but more drowsy overall. Pt ostomy is functioning and will start working with PT/OT when awake enough and interactive enough Please see A/P for further information Review of Systems Review of Systems: [place] Symptom Assessment Score Pain 2/3 Nausea 1/3 Anorexia 3/3 Drowsiness 1/3 Palliative Performance Score 40% Physical Exam Constitutional: + ill appearing ENMT: Mouth: + dry oral mucous membranes Respiratory: normal respiratory effort; no labored breathing Gastrointestinal (Abdomen): ostomy Skin: + pallor Neurologic: awake; not confused Results & Data ([facility]) Vital Signs (Past 12 Hours) Vital Signs Temp Pulse Resp BP Pulse Ox 04/15/21 07:30 36.7 C 99 H 18 157/88 H 97 PG Care Time/CCT Total # of Minutes Spent Total Time Spent with Patient: Total time spent is greater than 50% in coordination of care (as documented) at patient's floor/unit and/or counseling patient: 35 minutes with > 50% of that time spent assessing the patient, evaluating symptom management and collaborating with IDT. Coding Level of Care Code 90340 Subseq Hosp Care Lvl 3 Diagnoses Palliative care encounter Z51.5 Bowel obstruction K56.600 Intestinal obstruction extent: partial Intestinal obstruction type: unspecified Abdominal pain R10.13 Abdominal location: epigastric Ovarian cancer C56.9 Laterality: unspecified laterality Carcinoma of peritoneum C48.2 Time Spent (min) 35 (1) Ovarian cancer Laterality: unspecified laterality Qualified Code(s): C56.9 - Malignant neoplasm of unspecified ovary (2) Bowel obstruction Intestinal obstruction extent: partial Intestinal obstruction type: unspecified Qualified Code(s): K56.600 - Partial intestinal obstruction, unspecified as to cause (3) Abdominal pain Abdominal location: epigastric Qualified Code(s): R10.13 - Epigastric pain
[2021-04-15] MEDS ORDERED: oxyCODONE HCL SOLN 5 MG/5 ML UDC PO PRN (15:42)
--- NOTE | 2021-04-15 16:03 | Hospitalist Progress Note ---
Date of Service April 15, 2021 Assessment & Plan (1) Bowel obstruction: S/p transverse colostomy formation by Dr. Arenas on 04/12/2021. - Ostomy is functioning well with brown stool today. - Pain present, but tolerable. - Advance diet as tolerated. Now on low fiber diet. Will consult nutrition to help with caloric assessment. 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 S/p paclitaxel x 1 round earlier this month. Was scheduled for 2nd round of chemotherapy on 04/04 but did not receive due to this hospitalization. - Follows with Dr Morel at [facility] locally. - Discussed with him in the morning. Plan to evaluate for further treatment once functional status improves. (3) Tachycardia: Likely due to pain, volume depletion. CTA chest on 04/14 was negative for PE. - Monitor (4) Ovarian cancer: See above. (5) Elevated blood pressure reading without diagnosis of hypertension: BP today is 160/90. Suspect 2nd to pain, anxiety. - Monitor (6) Hyponatremia: Sodium 126-128 on 04/02 and 04/03, respectively. Serum osmolality 274, urine osmolality 642. 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 - Continue IV fluids - Up to 132 over last few days. Stable. (7) History of diabetes mellitus: A1c was 6% this admission c/w pre-DM only. - Monitor (8) Anxiety: - Continue Xanax PRN (9) DVT prophylaxis: Apixaban 2.5 mg PO BID - She declined heparin and Lovenox due to needle fear. She was amenable to oral DVT ppx after I discussed it with Dr. Morel. Admission and Anticipated Discharge Date Admission Date: April 04, 2021 Subjective Seen twice today: AM from 10:00 - 10:15am: Patient reports frustration with inconsistent quality in staff treatment. She reports that her abdominal pain is still present, but there are fewer sharp, shooting pains. She reports she has declined the Lovenox shots because she doesn't like needles, but is open to an oral DVT ppx medication. Ostomy is still putting good output. We discussed participating in PT/OT, and she was agreeable to this as she reported not being out of bed at all since her surgery. She was also open to taking oral potassium repletion and did not have a preference on powder vs. tablet form. She preferred to avoid IV potassium because wanted to spare her veins for if/when she needs further chemotherapy which I felt was totally appropriate. PM from 3:05pm - 3:30pm: Discussed with the in the room. He reports frustration about the visiting hours and feels frustrated about not being able to understand what's going on with her care. His questions were in regard to the issues keeping her in the hospital. I sympathized with his frustrations and assured him I would take notes on our morning conversations and do my best to fully relay the morning discussion. The issues as I explained them were: 1) transition to oral pain medications from her current SYS DIR, 2) stable/improving PO intake now that obstruction has passed, 3) physical safety at home from a functional standpoint, and 4) ability to safely manage medication issues at home including, but not limited to ostomy care and ADLs. He was understanding of this, and he asked to speak with a leather case finisher regarding home services, including 15/06 care options. I spoke with the leather case finisher, Mayuri Cuello, who reported she had spent considerable time on the phone with him just this morning. I mentioned some of his concerns to her, and she will work to help get the care arranged. During the afternoon conversation, the patient was sleeping with only occasionally opening her eyes, but made no comments. Physical Exam Constitutional: WD/WN, vitals as above Eyes: EOM intact bilaterally; no conjunctival abnormality ENMT: external ear and nose normal, oropharynx normal Neck: trachea midline, no thyromegaly normal visual inspection Respiratory: normal respiratory effort, lungs clear to auscultation no respiratory distress Cardiovascular: Rate/Rhythm: regular rhythm and + tachycardic Heart Sounds: normal S1 and normal S2 Vessels: no JVD Extremities: no edema Gastrointestinal (Abdomen): Inspection/Auscultation: + hypoactive bowel sounds; + abdomen abnormal to inspection (Colostomy bag with contents) and abdomen not distended Percussion/Palpation: abdomen soft; no guarding and abdomen not rigid Musculoskeletal: no cyanosis or clubbing, extremities motor strength 5/5 Skin: no rashes, warm and dry Neurologic: moves all extremities and awake Psychiatric: Orientation: alert, oriented to person and cooperative Results & Data Results & Data ([facility]) Vital Signs (Past 12 Hours) Vital Signs Temp Pulse Resp BP Pulse Ox 05/24/21 07:30 36.7 C 99 H 18 157/88 H 97 PG Care Time/CCT Total # of Minutes Spent Total Time Spent: 40 Total Time Spent with Patient: Total time spent is greater than 50% in coordination of care (as documented) at patient's floor/unit and/or counseling patient: 40 Coding Level of Care Code 03782 Subseq Hosp Care Lvl 3 Diagnoses Bowel obstruction K56.600 Intestinal obstruction type: unspecified Intestinal obstruction extent: partial Peritoneal carcinomatosis C78.6 Tachycardia R00.0 Ovarian cancer C56.9 Laterality: unspecified laterality Elevated blood pressure reading without diagnosis of hypertension R03.0 Hyponatremia E87.1 History of diabetes mellitus Z86.39 Anxiety F41.9 DVT prophylaxis Z29.9 (1) Bowel obstruction Intestinal obstruction type: unspecified Intestinal obstruction extent: partial Qualified Code(s): K56.600 - Partial intestinal obstruction, unspecified as to cause (2) Ovarian cancer Laterality: unspecified laterality Qualified Code(s): C56.9 - Malignant neoplasm of unspecified ovary
[2021-04-16] MEDS: oxyCODONE HCL IR 5 MG TAB (IMMEDIATE RELEASE) PO PRN ×2 (01:08→18:53)
[2021-04-16] MEDS: fentaNYL 25 MCG/HR TDSY TD SCH (01:36)
[2021-04-16 06:10] LABS: Hematocrit (blood only) 26.8 % (37-47); Hemoglobin 9.5 g/dL (12.0-16.0); Mean Corpuscular Hemoglobin 29.7 pg (25-34); Mean Corpuscular Hgb Conc 35.4 g/dL (32-36); Mean Corpuscular Volume 83.8 fL (80-100); Mean Platelet Volume 7.7 fL (7.4-10.4); Platelet Count 390 K/uL (130-400); RDW Coefficient of Variation 13.6 % (11.5-14.5); RDW Standard Deviation 41.5 fL (36.4-46.3); White Blood Count 10.37 K/uL (4.8-10.8)
[2021-04-16 06:50] LABS: BUN Creatinine Ratio 11.3 (10-20); Calcium 7.9 mg/dl (8.5-10.1); Creatinine Clr Calc Pharmacy 130.5 ml/min; Est GFR (African American) 135.4 ml/min; Est GFR (Non-African American) 116.8 ml/min; Magnesium 1.9 mg/dl (1.8-2.4); Phosphorus 3.7 mg/dl (2.5-4.9); Potassium 3.2 mmol/L (3.5-5.1)
[2021-04-16] MEDS: CHECK fentaNYL PATCH PLACEMENT SCH ×2 (08:05→17:36)
[2021-04-16] MEDS: SUCRALFATE 1 GM/10 ML UDC PO SCH ×4 (08:36→21:43)
[2021-04-16] MEDS: LATANOPROST 0.005% OP SOLN 2.5 ML BTL OP SCH (08:37)
[2021-04-16] MEDS: APIXABAN 2.5 MG TAB PO SCH ×2 (08:37→21:43)
[2021-04-16] MEDS: FAMOTIDINE 20 MG in SYRINGE 3 ML IV SCH ×2 (08:39→21:52)
--- NOTE | 2021-04-16 11:25 | Palliative Care Progress Note ---
Date of Service April 16, 2021 Assessment & Plan (1) Abdominal pain: Improving after diverting colostomy with bowel obstruction and peritoneal carcinomatosis. She is on fentanyl patch. Monitor today. Will continue to taper oxycodone dose as tolerated. (2) Palliative care encounter: We talked about plan for her care moving forward. She is interested in discussing cancer treatment options as she continues to improve. She is ambulating with a walker and feels comfortable with being at home but would want to have some caregiver support at home. She is also interested in home care support for discharge. (3) Ovarian cancer: (4) Peritoneal carcinomatosis: Admission and Anticipated Discharge Date Admission Date: April 04, 2021 Subjective Feeling better this morning. Reports that pain is improved. She has used one dose of oxycodone since [employer] discontinued. She reports that her appetite is improving. She is ambulating with walker. Review of Systems Review of Systems: [place] Symptom Assessment Scale Pain 1/3 Dyspnea 0/3 Anxiety 2/3 Fatigue 2/3 Nausea 0/3 Drowsiness 0/3 Palliative Performance Score 50% Physical Exam Constitutional: no acute distress ENMT: Mouth: + dry oral mucous membranes Respiratory: normal respiratory effort; no labored breathing Gastrointestinal (Abdomen): soft brown stool in ostomy bag, incision clean and dry Musculoskeletal: Extremities: extremities normal to inspection Neurologic: awake; not confused Results & Data ([facility]) Vital Signs (Past 12 Hours) Vital Signs Temp Pulse Resp BP Pulse Ox 04/16/21 07:22 98.1 F 100 H 16 151/88 H 94 04/16/21 01:06 99 H 171/90 H PG Care Time/CCT Total # of Minutes Spent Total Time Spent with Patient: Total time spent is greater than 50% in coordination of care (as documented) at patient's floor/unit and/or counseling patient: Coding Level of Care Code 90605 Subseq Hosp Care Lvl 2 Diagnoses Abdominal pain R10.84 Abdominal location: generalized Palliative care encounter Z51.5 Ovarian cancer C56.9 Laterality: unspecified laterality Peritoneal carcinomatosis C78.6 (1) Ovarian cancer Laterality: unspecified laterality Qualified Code(s): C56.9 - Malignant neoplasm of unspecified ovary (2) Abdominal pain Abdominal location: generalized Qualified Code(s): R10.84 - Generalized abdominal pain
--- NOTE | 2021-04-16 13:12 | Surgery Progress Note ---
Date of Service April 16, 2021 Assessment & Plan (1) Bowel obstruction: POD 4 loop colostomy d/c planning explained to her that ostomy bridge will be removed in office and will make care easier Admission and Anticipated Discharge Date Admission Date: April 04, 2021 Subjective feeling better today Physical Exam Gastrointestinal (Abdomen): Percussion/Palpation: abdomen soft Results & Data ([facility]) Vital Signs (Past 12 Hours) Vital Signs Temp Pulse Resp BP Pulse Ox 04/16/21 07:22 36.7 C 100 H 16 151/88 H 94 PG Care Time/CCT Total # of Minutes Spent Total Time Spent with Patient: Total time spent is greater than 50% in coordination of care (as documented) at patient's floor/unit and/or counseling patient: Coding Level of Care Code None Diagnoses Bowel obstruction K56.600 Intestinal obstruction extent: partial Intestinal obstruction type: unspecified (1) Bowel obstruction Intestinal obstruction extent: partial Intestinal obstruction type: unspecified Qualified Code(s): K56.600 - Partial intestinal obstruction, unspecified as to cause
--- NOTE | 2021-04-16 15:28 | Hospitalist Progress Note ---
Date of Service April 16, 2021 Assessment & Plan (1) Bowel obstruction: S/p transverse colostomy formation by Dr. Arenas on 04/12/2021. - Ostomy is functioning well with brown stool today. - Pain present, but tolerable. - Advance diet as tolerated. Now on low fiber diet. Consulted nutrition to help with caloric assessment. She is not presently interested in protein shakes/powders/supplements etc. per their 04/16 note. Will continue to encourage good intake with her. 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 S/p paclitaxel x 1 round earlier this month. Was scheduled for 2nd round of chemotherapy on 04/04 but did not receive due to this hospitalization. - Follows with Dr Morel at [facility] locally. - Discussed with him this morning. Plan to evaluate for further treatment once functional status improves. (3) Tachycardia: Likely due to pain, volume depletion. CTA chest on 04/14 was negative for PE. - Monitor (4) Ovarian cancer: See above. (5) Elevated blood pressure reading without diagnosis of hypertension: BP today is 150/90. Suspect 2nd to pain, anxiety. - Monitor (6) Hyponatremia: Sodium 126-128 on 04/02 and 04/03, respectively. Serum osmolality 274, urine osmolality 642. 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 - Stop IV fluids - Up to 137 over last few days. Stable. (7) History of diabetes mellitus: A1c was 6% this admission c/w pre-DM only. - DM diet per patient request (8) Anxiety: - Continue Xanax PRN (9) DVT prophylaxis: Apixaban 2.5 mg PO BID - She declined heparin and Lovenox due to needle fear. She was amenable to oral DVT ppx after I discussed it with Dr. Morel. - Will continue on discharge per Dr. Morel, and he can stop it in the office once she is up and walking/moving more. Admission and Anticipated Discharge Date Admission Date: April 04, 2021 Subjective Pain is improving as is mobility. She feels encouraged somewhat. She is dissatisfied with the food, but I did assure her she could have any meals hanane t in that she desired. Pain was down to a 1-2/10 this morning, and she told the nurse she did not need pain medication. Physical Exam Constitutional: WD/WN, vitals as above no acute distress Eyes: EOM intact bilaterally; no conjunctival abnormality ENMT: external ear and nose normal, oropharynx normal Neck: trachea midline, no thyromegaly normal visual inspection Respiratory: normal respiratory effort, lungs clear to auscultation no respiratory distress Cardiovascular: Rate/Rhythm: regular rhythm and + tachycardic Heart Sounds: normal S1 and normal S2 Vessels: no JVD Extremities: no edema Gastrointestinal (Abdomen): Inspection/Auscultation: normal bowel sounds; + abdomen abnormal to inspection (Colostomy bag with contents) and abdomen not distended Percussion/Palpation: abdomen soft; no guarding and abdomen not rigid Musculoskeletal: no cyanosis or clubbing, extremities motor strength 5/5 Skin: no rashes, warm and dry Neurologic: moves all extremities and awake Psychiatric: Orientation: alert, oriented to person and cooperative Results & Data Results & Data ([facility]) Vital Signs (Past 12 Hours) Vital Signs Temp Pulse Resp BP Pulse Ox 04/16/21 07:22 36.7 C 100 H 16 151/88 H 94 PG Care Time/CCT Total # of Minutes Spent Total Time Spent with Patient: Total time spent is greater than 50% in coordination of care (as documented) at patient's floor/unit and/or counseling patient: Coding Level of Care Code 73165 Subseq Hosp Care Lvl 2 Diagnoses Bowel obstruction K56.600 Intestinal obstruction type: unspecified Intestinal obstruction extent: partial Peritoneal carcinomatosis C78.6 Tachycardia R00.0 Ovarian cancer C56.9 Laterality: unspecified laterality Elevated blood pressure reading without diagnosis of hypertension R03.0 Hyponatremia E87.1 History of diabetes mellitus Z86.39 Anxiety F41.9 DVT prophylaxis Z29.9 (1) Bowel obstruction Intestinal obstruction type: unspecified Intestinal obstruction extent: partial Qualified Code(s): K56.600 - Partial intestinal obstruction, unspecified as to cause (2) Ovarian cancer Laterality: unspecified laterality Qualified Code(s): C56.9 - Malignant neoplasm of unspecified ovary
[2021-04-17] MEDS: CHECK fentaNYL PATCH PLACEMENT SCH ×2 (00:33→07:47)
[2021-04-17 08:01] LABS: Hematocrit (blood only) 29.4 % (37-47); Hemoglobin 10.3 g/dL (12.0-16.0); Mean Corpuscular Hemoglobin 29.9 pg (25-34); Mean Corpuscular Volume 85.5 fL (80-100); Mean Platelet Volume 7.8 fL (7.4-10.4); Platelet Count 484 K/uL (130-400); RDW Coefficient of Variation 13.7 % (11.5-14.5); RDW Standard Deviation 42.5 fL (36.4-46.3); Red Blood Count 3.44 M/uL (4.2-5.4); White Blood Count 11.97 K/uL (4.8-10.8)
[2021-04-17 08:28] LABS: Calcium 8.7 mg/dl (8.5-10.1); Creatinine Clr Calc Pharmacy 112.9 ml/min; Est GFR (African American) 129.1 ml/min; Est GFR (Non-African American) 111.4 ml/min; Magnesium 1.6 mg/dl (1.8-2.4); Phosphorus 3.1 mg/dl (2.5-4.9); Potassium 2.6 mmol/L (3.5-5.1)
[2021-04-17] MEDS: POTASSIUM CHLORIDE CRTAB 20 MEQ TABCR PO SCH (08:31)
[2021-04-17] MEDS: APIXABAN 2.5 MG TAB PO SCH (08:31)
[2021-04-17] MEDS: LATANOPROST 0.005% OP SOLN 2.5 ML BTL OP SCH (08:32)
[2021-04-17] MEDS: SUCRALFATE 1 GM/10 ML UDC PO SCH ×2 (08:32→13:36)
[2021-04-17] MEDS: FAMOTIDINE 20 MG in SYRINGE 3 ML IV SCH (08:32)
[2021-04-17] MEDS ORDERED: POTASSIUM CHLORIDE PWD 20 MEQ PACK PO ONE (12:17)
[2021-04-17] MEDS: oxyCODONE HCL IR 5 MG TAB (IMMEDIATE RELEASE) PO PRN (13:34)
[2021-04-17] MEDS ORDERED: FAMOTIDINE 20 MG TAB PO SCH (21:00)
--- NOTE | 2021-04-23 15:01 | Discharge Summary ---
Date of Service April 17, 2021 Admission HPI Per Admitting Provider The patient is a 65-year-old female with a past medical history including hyponatremia, glaucoma, chronic pain secondary to cancer, peritoneal carcinomatosis, hyperlipidemia, diabetes mellitus type 2 and hypertension. Due to worsening abdominal discomfort after being seen in the ED last evening, she represented to the ED this evening, and is being referred due to imaging studies suggesting a bowel obstruction. Principal Diagnosis Ovarian cancer causing bowel obstruction Discharge Exam Constitutional WD/WN, vitals as above no acute distress Eyes EOM intact bilaterally; no conjunctival abnormality ENMT external ear and nose normal, oropharynx normal Neck trachea midline, no thyromegaly normal visual inspection Respiratory normal respiratory effort, lungs clear to auscultation no respiratory distress Cardiovascular Rate/Rhythm: regular rhythm and + tachycardic Heart Sounds: normal S1 and normal S2 Vessels: no JVD Extremities: no edema Gastrointestinal (Abdomen) Inspection/Auscultation: normal bowel sounds; + abdomen abnormal to inspection (Colostomy bag with contents) and abdomen not distended Percussion/Palpation: abdomen soft; no guarding and abdomen not rigid Musculoskeletal no cyanosis or clubbing, extremities motor strength 5/5 Skin no rashes, warm and dry Neurologic moves all extremities and awake Psychiatric Orientation: alert, oriented to person and cooperative Discharge Data Allergies Allergy/AdvReac Type Severity Reaction Status Date / Time Sulfa (Sulfonamide Allergy Mild Rash Verified 04/21/21 19:16 Antibiotics) hydrocodone [From Vicodin] AdvReac Mild Vomiting Verified 04/21/21 19:16 Consultations 04/04/21 00:19 ED Decision to Admit Stat 04/05/21 12:21 Consult General Surgery Routine 04/07/21 11:09 Burn CD for patient Stat 04/10/21 07:46 Consult Palliative Care Routine 04/12/21 10:53 Consult Patient Services Routine Procedures Performed Operation Date: 04/09/21 07:00 <No data on this case meets the specified criteria> Operation Date: 04/12/21 08:55 Actual Procedures p Creation of Transverse Loop Colostomy - Chris Arenas DO Ordered Studies 04/03/21 22:19 CT abd pelvis IV con only Urgent 04/11/21 20:14 CT head/brain wo con Urgent 04/14/21 09:08 CT angio chest PE protocol Urgent Hospital Course (1) Bowel obstruction: S/p transverse colostomy formation by Dr. Arenas on 04/12/2021. - Ostomy is functioning well with brown stool today. - Pain present, but tolerable. - Advance diet as tolerated. Now on low fiber diet. - On discharge day, ostomy was working well. Ms. Moran and worked with ostomy nurse on care. She worked with PT/OT and did well. She felt she would be safe at home and would recover faster at home as she felt the hospital food was not very good and she would have better nutrition at home. - Likely due to poor re-absorption, she was chronically hypokalemic. She was discharged on a potassium supplement. She was encouraged to follow up with surgery in re: to her ostomy and any issues there. 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 S/p paclitaxel x 1 round earlier this month. Was scheduled for 2nd round of chemotherapy on 04/04 but did not receive due to this hospitalization. - Follows with Dr Morel at [facility] locally. - Discussed with him during her hospitalization. He plans to evaluate for further treatment once functional status improves. We worked with palliative care to help get pain under control. Pain was under control with oral-only medications in the days prior to discharge. (3) Tachycardia: Likely due to pain, volume depletion. CTA chest on 04/14 was negative for PE. - Monitor (4) Ovarian cancer: See above. (5) Elevated blood pressure reading without diagnosis of hypertension: BP today is 150/90. Suspect 2nd to pain, anxiety. - Monitor (6) Hyponatremia: Sodium 126-128 on 04/02 and 04/03, respectively. Serum osmolality 274, urine osmolality 642. 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 - Stopped IV fluids a few days prior to discharge. Na remained stable. (7) History of diabetes mellitus: A1c was 6% this admission c/w pre-DM only. - DM diet per patient request (8) Anxiety: - Continue Xanax PRN (9) DVT prophylaxis: Apixaban 2.5 mg PO BID - She declined heparin and Lovenox due to needle fear. She was amenable to oral DVT ppx after I discussed it with Dr. Morel. - Will continue on discharge per Dr. Morel, and he can stop it in the office once she is up and walking/moving more. Total Time Total Time Spent Total Time Spent (In Minutes): 35 Discharge Plan Discharge Items Patient Disposition: Home - Home Health Services Reason For Visit: BOWEL OBSTRUCTION Discharge Diagnosis: Large bowel obstruction due to ovarian CA, abdominal carcinomatosis Condition on Discharge: Good Activity: Resume your previous activity Non-emergency contact: Primary Care Provider, Surgeon and Oncologist Call non-emergency contact if: you have any medication questions and your symptoms worsen Follow-up/Referrals: Chris Arenas DO [Physician] - 05/01/21 9:30 am () Taiwo Sullivan DO [Primary Care Provider] - 05/01/21 7:50 am Diet: Low Fiber Addtl Attending Provider Instructions: Ms. Moran, You were admitted to the hospital with a bowel obstruction from your ovarian cancer and required a bowel bypass to allow things to continue passing through. We have adjusted your pain regimen to let you be comfortable while you heal. Please follow up with Dr. Arenas to make sure your ostomy site is healing well. Please use the potassium powder to help keep your potassium up. The pills may not absorb as well now that you have the ostomy. We are sending you with a month's worth of DVT prevention medication (Eliquis or apixaban) under Dr. Morel's recommendation. Please continue this until you see Dr. Morel in the clinic. He will likely stop this once you are up and moving more and recovered from your surgery. If you have issues before you connect with Dr. Morel and Dr. Sullivan, you can call the hospitalist office at [phone] ext. [phone]. However, I (Kel Olson) will not be in the hospital in the coming weeks. As discussed, we are here to help you transition back into the outpatient setting, but are not officially part of your care team once you are out of the hospital. If you have issues with the ostomy, the surgical team will likely be able to help you best. Pending Studies at Discharge: No Stand-Alone Forms: [facility], Opioid Pain Management, Smoking Cessation Medications and DC Order Prescriptions: New Eliquis 2.5 mg Tablet 2.5 mg PO BID Qty: 60 RF: 0 potassium chloride 20 mEq packet 40 meq PO DAILY Qty: 100 RF: 0 oxycodone 5 mg tablet 5 mg PO Q6H PRN (Reason: pain) Qty: 30 RF: 0 Continued ondansetron HCl 8 mg tablet 8 mg PO Q8H PRN (Reason: Nausea) RF: 0 sodium chloride 1 gram Tablet 2,000 mg PO HS RF: 0 prochlorperazine maleate [Compazine] 10 mg tablet 10 mg PO Q6H PRN (Reason: Nausea) RF: 0 olanzapine [Zyprexa] 2.5 mg tablet 2.5 mg PO HS RF: 0 dexamethasone [Decadron] 4 mg tablet 20 mg PO USEASDIRECTD RF: 0 fentanyl 25 mcg/hr patch 72 hour 1 patch transdermal Q72H Qty: 5 RF: 0 latanoprost [Xalatan] 0.005 % Drops 1 drp OPHTHALMIC (EYE) DAILY RF: 0 cholecalciferol (vitamin D3) [Vitamin D3] 25 mcg (1,000 unit) Capsule 125 mcg PO DAILY RF: 0 tramadol 50 mg Tablet 50 mg PO Q6H PRN (Reason: pain) Qty: 20 RF: 0 Discontinued oxycodone [Roxicodone] 5 mg tablet See Rx Instructions .ROUTE .COMPLEX RF: 0 Discharge Orders: Discharge Order (Routine); Ordered 04/17/21 Ordered By: Kel Fox/Other Patient Handouts: Colostomy: Changing Your Pouch, Ostomy Care: Emptying Your Pouch, What Is a Colostomy?, Colostomy: Caring for Your Stoma, A1C Admission Data Admit Date/Time: 04/04/21 01:21 Attending Provider: Kel Olson Admit Provider: Rosalio Honeycutt Primary Care Provider: Taiwo Sullivan Other Providers: Aaron Osborne ; Ariana Sorensen ; Kel Olson ; [facility] Other Interventions: Discharge Summary Assessment (RN) Last Done: 04/17/21 12:02 Coding Level of Care Code D/C Day Management >30 mins Diagnoses Bowel obstruction K56.600 Intestinal obstruction type: unspecified Intestinal obstruction extent: partial Peritoneal carcinomatosis C78.6 Tachycardia R00.0 Ovarian cancer C56.9 Laterality: unspecified laterality Elevated blood pressure reading without diagnosis of hypertension R03.0 Hyponatremia E87.1 History of diabetes mellitus Z86.39 Anxiety F41.9 DVT prophylaxis Z29.9
== END 2021-04-17 15:00 | disposition home health service (06) | DRG 329 ==
LOC: ED 21:01 → 3W 04-04 01:21 → SUATTDRO 04-04 01:21 → 3W 04-04 02:08